=== PATIENT | male | born 1940 | race Caucasian/White ===

== ENCOUNTER 2018-04-09 18:34 | Inpatient (IN) ==
[2018-04-09] MEDS ORDERED: 0.9 % SODIUM CHLORIDE 1,000 ML IV ONE ×2 (18:47→20:53)
--- NOTE | 2018-04-09 18:52 | Emergency Department Note ---
GI Bleed HPI - General Chief complaint: Rectal Bleed Stated complaint: Rectal bleed Time Seen by Provider: 04/09/18 18:45 Source: EMS Mode of arrival: EMS Limitations: no limitations - History of Present Illness HPI Narrative: This patient had colonoscopy with Dr. Martinez this morning at 9 and a apparently took out a very large polyp. He has had discomfort since the procedure and started having some rectal bleeding this evening. He thought he had quite a bit in the toilet bowl but not finding much on rectal exam at this time. - Related Data Allergies Allergy/AdvReac Type Severity Reaction Status Date / Time oxycodone Allergy Mild Itching Verified 04/09/18 18:35 Review of Systems All systems ED: reviewed and negative except as stated. Past Medical History - Past Medical History Medical history: Reports: atrial fibrillation, COPD, coronary artery disease Surgical history ED: Reports: coronary bypass (CABG), pacemaker/AICD - Social History smoking status: Never smoker Physical Exam Limitations: no limitations General appearance: alert Head: atraumatic Eye: Present: normal appearance ENT: normal exam Neck: Present: normal inspection Chest: Present: normal inspection Respiratory: Present: normal lung sounds bilaterally Cardiovascular: Present: regular rate, normal rhythm, normal heart sounds Abdominal: Present: soft, tenderness. Absent: distention, guarding, rebound Abdominal tenderness: Present: porter umbilical, moderate Rectal: Present: heme (+) stool Neurological: Present: alert Psychiatric: Present: normal affect Skin: Present: warm, dry, intact Course Vital Signs Temperature 98.2 F 04/09/18 18:36 Pulse Rate 150 H 04/09/18 18:36 Respiratory Rate 20 04/09/18 18:36 Blood Pressure 149/84 04/09/18 18:36 Pulse Oximetry (%) 96 04/09/18 18:36 Temperature 98.2 F 04/09/18 18:36 Pulse Rate 50 L 04/09/18 19:21 Respiratory Rate 26 H 04/09/18 19:21 Blood Pressure 110/64 04/09/18 19:18 Pulse Oximetry (%) 94 04/09/18 19:21 GI Bleed - MDM Narrative Medical decision making narrative: Plain film did not show any free air in his will. I talked with Dr. Martinez who did the colonoscopy and said there was quite a bit of work done in the transverse colon with a large polyp and lower cautery. He recommends a CT scan. I spoke with surgeon Dr. Vuong who will admit him to his service. We will treat him with antibiotics. - Lab Data Lab results reviewed: Yes I reviewed the patient's lab results. Result diagrams: 04/09/18 18:52 04/09/18 18:52 Lab Results 04/09/18 04/09/18 04/09/18 Range/Units 18:52 18:52 18:52 WBC 8.9 (4.5-11.0) K/mcL RBC 4.47 L (4.50-5.90) M/mcL Hgb 13.4 L (13.5-16.5) g/dL Hct 40.4 L (41.0-55.0) % POC Hct 41.0 (41.0-55.0) % MCV 90.3 (80.0-100.0) fL MCH 30.0 (26.0-34.0) pg MCHC 33.2 (31.0-36.0) g/dL RDW 14.4 (11.5-14.5) % Plt Count 149 (140-440) K/mcL MPV 9.1 (7.4-10.4) fL Gran % 81.7 H (38.0-78.0) % Lymph % (Auto) 9.9 L (15.5-49.0) % Sullivan % (Auto) 7.7 (1.0-12.0) % Eos % (Auto) 0.6 (0.0-7.0) % Baso % (Auto) 0.1 (0.0-2.0) % Gran # 7.3 (1.8-8.0) K/mcL Lymph # (Auto) 0.9 L (1.5-4.8) K/mcL Sullivan # (Auto) 0.7 (0.1-0.9) K/mcL Eos # (Auto) 0.1 (0.0-0.7) K/mcL Baso # (Auto) 0 (0.0-0.3) K/mcL PT 17.5 H (11.9-14.5) sec INR 1.4 H (0.9-1.1) POC Sodium 141 (133-145) mmol/L Sodium 138 (133-145) mmol/L POC Potassium 3.3 (3.3-5.1) mmol/L Potassium 3.4 (3.3-5.1) mmol/L POC Chloride 101 (96-108) mmol/L Chloride 100 (96-108) mmol/L Carbon Dioxide 26 (22-30) mmol/L POC Total CO2 26 (22-30) mmol/L Anion Gap 12.0 (8-16) POC BUN 10 (8-23) mg/dl BUN 10 (8-23) mg/dl Creatinine 0.9 (0.7-1.2) mg/dl POC Creatinine 0.8 (0.7-1.2) mg/dl GFR Calculation 80 Glucose 142 H (70-105) mg/dL POC Glucose 144 H (70-105) mg/dL Calcium 9.2 (8.6-10.4) mg/dl POC WB Ioniz Calcium 1.19 (1.16-1.32) mmol/L Total Bilirubin 1.7 H (0.0-1.0) mg/dL AST 19 (0-37) U/l ALT 16 (0-40) U/l Alkaline Phosphatase 70 (39-117) U/L Total Protein 6.9 (5.9-8.4) gm/dL Albumin 4.4 (3.2-5.2) gm/dL Globulin 2.5 (2.2-3.7) gm/dL Albumin/Globulin Ratio 1.8 (1.0-2.3) - Radiology Data Radiology results reviewed: Yes I reviewed the patient's radiology results. Disposition Pt seen by OFFENDER EMPLOYMENT SPECIALIST/PA only: No Clinical Impression: Colonoscopy causing post-procedural bleeding Disposition: Xfer As Outpt/Obs ([facility]) Condition: Good Referrals: Bernardo Bloom MD [Primary Care Provider] - Time of Disposition: 20:11
[2018-04-09 19:29] LABS: Basophils # (Auto) 0 K/mcL (0.0-0.3); Basophils % (Auto) 0.1 % (0.0-2.0); Eosinophils # (Auto) 0.1 K/mcL (0.0-0.7); Eosinophils % (Auto) 0.6 % (0.0-7.0); Granulocytes % (Auto) 81.7 % (38.0-78.0); Lymphocytes # (Auto) 0.9 K/mcL (1.5-4.8); Lymphocytes % (Auto) 9.9 % (15.5-49.0); Mean Cell Volume 90.3 fL (80.0-100.0); Mean Corpuscular HGB Conc 33.2 g/dL (31.0-36.0); Monocytes # (Auto) 0.7 K/mcL (0.1-0.9); Monocytes % (Auto) 7.7 % (1.0-12.0); Platelet Count 149 K/mcL (140-440); RBC 4.47 M/mcL (4.50-5.90); Red Cell Distribution Width 14.4 % (11.5-14.5)
[2018-04-09 19:48] LABS: ALT/SGPT 16 U/l (0-40); Albumin 4.4 gm/dL (3.2-5.2); Albumin/Globulin Ratio 1.8 (1.0-2.3); Alkaline Phosphatase 70 U/L (39-117); Blood Urea Nitrogen 10 mg/dl (8-23)
[2018-04-09] MEDS ORDERED: LEVOFLOXACIN 750 MG/150 ML BAG IV ONE (20:10)
[2018-04-09] MEDS ORDERED: metroNIDAZOLE 500 MG/100 ML BAG IV ONE (20:10)
[2018-04-09] MEDS ORDERED: ONDANSETRON 4 MG/2 ML VIAL IV PRN (20:12)
[2018-04-09] MEDS ORDERED: diphenhydrAMINE 50 MG/ML VIAL IV ONE (20:46)
--- NOTE | 2018-04-10 04:25 | XRay Report ---
CLINICAL INFORMATION: Shortness of breath COMPARISON: 10/13/2015 FINDINGS: Heart is at upper limits normal in size. Sternotomy changes noted. Pacemaker and leads in stable satisfactory position without complication. Mediastinum and pulmonary vessels are normal. Minor left basilar airspace disease likely atelectasis. No effusions IMPRESSION: Mild left basilar airspace disease - more likely atelectasis than developing infiltrate Interpreted and Authenticated by: Keon Mustafa 04/10/18
--- NOTE | 2018-04-10 05:28 | Cat Scan Report ---
CLINICAL INFORMATION: Abdominal pain. Post colonoscopy with rectal bleeding. COMPARISON: None. TECHNIQUE: Enteric contrast was utilized. 60.625 mm helical slices were obtained from the mid heart through the subtrochanteric regions. Following reconstruction, 2.5 mm sagittal, coronal and axial reformatted images were processed and reviewed at bone and soft tissue windows.The exam was performed using radiation dose optimization techniques including, but not limited to, automated exposure control, adjustment of the mA and/or kV according to patient size and use of iterative reconstruction technique. FINDINGS: Lung bases show no nodules or other abnormality. No effusion. The visualized heart is normal in size and configuration. Pacemaker leads in satisfactory position. Images through the abdomen show partial resection of the right hepatic lobe. Gallbladder is surgically absent. Common bile duct is mildly dilated, 9 mm, due to postcholecystectomy state The noncontrasted liver, both kidneys, adrenal glands, spleen, pancreas and aorta are normal in size, configuration and attenuation without focal lesion. Images through the pelvis show prostate and seminal vesicles are grossly normal. There is no free air or free fluid to suggest bowel rupture. No adenopathy. A 4 cm segment of the proximal transverse colon demonstrates moderate concentric wall thickening - up to 1 cm. While this may merely represent artifact from colonic underdistention, the possibility of annular adenocarcinoma should be entertained. The remainder of the colon, small bowel and stomach are normal. The appendix is surgically absent. Moderate atrophy of the right rectus abdominis appreciated. A 21 mm anterior abdominal wall hernia, in the supra umbilical region, consistent only of mesenteric fat Bone windows show no evidence of metastatic disease. Severe degenerative change noted in the lower lumbar spine with severe L3-4 and moderate L4-5 central canal, lateral recess and IV foraminal stenosis. IMPRESSION: 1. No evidence of bowel perforation following colonoscopy 2. 4 cm segment of concentric colonic wall thickening in the proximal transverse colon. It is unknown whether colonoscopy was completed in this particular patient. The possibility of annular adenocarcinoma this region should be entertained. Consider: Repeat colonoscopy or, less preferably, CT colonoscopy. 3. History of prior colon carcinoma acknowledged. No evidence of metastatic disease. 4. Partial hepatectomy 5. 2 cm supraumbilical hernia consisting only of mesenteric fat. Moderate atrophy of the right rectus abdominis muscle Interpreted and Authenticated by: Keon Mustafa 04/10/18
--- NOTE | 2018-04-10 05:29 | XRay Report ---
CLINICAL INFORMATION: abd abdominal pain following colonoscopy COMPARISON: None. FINDINGS: Multiple right upper quadrant surgical clips from prior partial hepatectomy noted. The stool gas pattern is unremarkable. There is no free air, soft tissue mass, organomegaly or pathologic calcification. IMPRESSION: Normal abdomen Interpreted and Authenticated by: Keon Mustafa 04/10/18
[2018-04-10] MEDS ORDERED: 0.9 % SODIUM CHLORIDE 1,000 ML IV SCH (07:45)
[2018-04-10 08:55] LABS: Basophils # (Auto) 0 K/mcL (0.0-0.3); Basophils % (Auto) 0.3 % (0.0-2.0); Eosinophils # (Auto) 0.1 K/mcL (0.0-0.7); Eosinophils % (Auto) 1.4 % (0.0-7.0); Granulocytes % (Auto) 68.5 % (38.0-78.0); Mean Corpuscular HGB Conc 33.2 g/dL (31.0-36.0); Monocytes # (Auto) 0.7 K/mcL (0.1-0.9); Monocytes % (Auto) 12.8 % (1.0-12.0); Platelet Count 119 K/mcL (140-440); RBC 3.66 M/mcL (4.50-5.90); Red Cell Distribution Width 14.6 % (11.5-14.5)
[2018-04-10] MEDS: metroNIDAZOLE 500 MG/100 ML BAG IV SCH ×3 (09:02→17:52)
[2018-04-10 09:09] LABS: ALT/SGPT 11 U/l (0-40); Albumin 3.5 gm/dL (3.2-5.2); Albumin/Globulin Ratio 1.6 (1.0-2.3); Alkaline Phosphatase 49 U/L (39-117); Bilirubin,Direct 0.2 mg/dL (0.0-0.3); Blood Urea Nitrogen 8 mg/dl (8-23); Gamma Glutamyl Transpeptidase 11 U/L (8-61); Uric Acid 6.1 mg/dL (2.5-8.0)
[2018-04-10 10:44] LABS: Erythrocyte Sedimentation Rate 13 mm/hr (0-15)
[2018-04-10] MEDS ORDERED: PHYTONADIONE 10 MG/ML AMPUL SQ SCH (11:03)
[2018-04-10] MEDS: PIPERACILLIN SODIUM/TAZOBACTAM 3.375 GM in DEXTROSE 5% IN WATER 50 ML IV SCH ×2 (11:09→17:13)
--- NOTE | 2018-04-10 11:26 | General Surg History&Physical ---
History of Present Illness Patient information: Note initiated : 04/10/18 at 11:17 am Service Date, if different from initiated Date: [04/09/2018] Patient: Dakota Mejia 78 y/o M admitted on 04/09/18 for Rectal bleed. Chief Complaint: [78-year-old male admitted late last evening after undergoing colonoscopy with removal of a large polyp.. He developed a pulse procedure abdominal pain and had multiple bloody bowel movements. Pain was across is upper abdomen. He was admitted and started on IV antibiotics and monitored. The patient has a history of colon cancer in the 70s. He later developed metastatic cancer of the right lobe of the liver and underwent partial hepatectomy in 1995. He has been stable since that time has been having colonoscopies every 2-3 years since. His colonoscopy done 3 years ago was said to be normal. He states that he has had intermittent rectal bleeding over the past 2 years and he noted that his stools were flat. In In discussing the procedure with the kick boxer he states that the patient had a large polyp that was raised with saline submucosal injection and cautery polypectomy. He states that there was no circumferential lesions noted and that he was able to get the scope down to the terminal ileum. His last bowel movement which was about 4 hours ago she active bleeding. He has been on Coumadin and his INR is 1.4. He states that his pain has improved but he still has upper abdominal soreness.] HPI: Mr. Mejia is a 78 year old M Review of Systems - Constitutional fatigue, no malaise, no night sweats, no weakness, no weight gain, no weight loss - EENT Nose, mouth and throat: abnormal hearing (patient has bilateral hearing loss), no dizziness, no hoarseness, no neck pain - Cardiovascular chest pain with activity, dyspnea on exertion, palpatations, rapid heart rate - Respiratory no cough, no hemoptysis, no wheezing, no chest congestion, no pain with cough - Gastrointestinal abdominal pain, bloating, change in bowel habits, change in stool character, constipation, hematochezia, nausea - Genitourinary change in urinary stream, urinary frequency, urinary hesitancy, urinary incontinence, no dysuria - Musculoskeletal abnormal gait, arthralgias, myalgias, stiffness - Integumentary no bleeding lesions, no non-healing lesions, no pruritus, no rash - Neurological abnormal hearing, no convulsions, no dizziness, no numbness, no syncope, no vertigo - Psychiatric no anxiety, no depression, no paranoia - Endocrine palpitations - Hematologic/Lymphatic other (chronic Coumadin therapy), no easy bleeding, no easy bruising, no lymphadenopathy - Allergic/Immunologic no tongue swelling, no throat swelling, no uticaria, no wheezing, no lip swelling Past History Past medical history: Coronary artery disease Chronic atrial fibrillation Chronic low back pain History of primary colon cancer History of partial hepatectomy for metastatic colon cancer 1995 Hypertension Coronary artery disease Chronic obstructive lung disease Chronic anticoagulant therapy Past surgical history: Lower lumbar back surgery 2 Coronary artery bypass graft 5 Pacemaker insertion 2000 Partial hepatectomy Past family history: Mother due to coronary artery disease Father due to prostate cancer Past social history: History of smoking cigarettes 30 years History of alcohol use but none in 2 years No drug use Medications and Allergies Allergies Allergy/AdvReac Type Severity Reaction Status Date / Time levofloxacin [From Levaquin] Allergy Severe Itching Verified 04/09/18 20:52 oxycodone Allergy Mild Itching Verified 04/09/18 18:35 Exam Temp Pulse Resp BP Pulse Ox 98.5 F 92 H 16 100/65 90 04/10/18 06:48 04/10/18 03:32 04/10/18 06:48 04/10/18 06:48 04/10/18 06:48 - General physical appearance well developed, well nourished, no distress, moderate pain - Eyes PERRL, normal ocular movement - ENT normal pinna, normal nares, normal mucosa, no congestion, decreased hearing. negative: no hearing loss - Head Head exam IM: Present: atraumatic, normal inspection, normocephalic - Neck no masses, no bruits, trachea midline, no lymphadenopathy, no venous distension - Cardiovascular Cardiovascular exam IM: Present: normal rate and rhythm. Absent: JVD, systolic murmur, tachycardia - Respiratory normal expansion, normal respiratory effort, clear to auscultation - Abdomen Abdomen: Present: soft, tender (tender epigastric and right subcostal tenderness without mass and without guarding; multiple healed surgical scars), bowel sounds Hernia: Present: none - Genitourinary Present: normal penis with no external lesions - Integumentary Present: no rash, no growths, no abnormal pigmentation - Neurologic Present: normal coordination, normal sensation - Musculoskeletal Present: normal gait, normal posture - Psychiatric Present: oriented to time, oriented to person, oriented to place, speech is normal, memory intact Assessment and Plan (1) History of colon cancer results of the biopsy from colon lesion to be followed up Status: Acute (2) History of malignant neoplasm metastatic to liver Status: Acute (3) Colonoscopy causing post-procedural bleeding Correct INR with IV vitamin K Repeat hemoglobin later today and in a.m. Status: Acute (4) Coronary artery disease Status: Acute (5) Hypertension Status: Acute (6) Chronic atrial fibrillation Status: Acute (7) Chronic obstructive lung disease Status: Acute
[2018-04-10] MEDS: PHYTONADIONE 10 MG in 0.9 % SODIUM CHLORIDE 50 ML IV SCH (12:34)
[2018-04-10] MEDS: HYDROmorphone 2 MG/ML VIAL IV PRN ×2 (12:48→21:00)
[2018-04-10] MEDS: PANTOPRAZOLE 40 MG VIAL IV SCH (17:13)
[2018-04-10] MEDS ORDERED: BUTALB/ACETAMINOPHEN/CAFFEINE 1 TABLET PO PRN (18:32)
[2018-04-10] MEDS ORDERED: FUROSEMIDE 20 MG TABLET PO PRN (18:38)
[2018-04-10] MEDS: MONTELUKAST 10 MG TABLET PO SCH (21:00)
[2018-04-11] MEDS: PIPERACILLIN SODIUM/TAZOBACTAM 3.375 GM in DEXTROSE 5% IN WATER 50 ML IV SCH ×5 (00:07→23:26)
[2018-04-11] MEDS: metroNIDAZOLE 500 MG/100 ML BAG IV SCH (00:08)
[2018-04-11] MEDS: PHYTONADIONE 10 MG in 0.9 % SODIUM CHLORIDE 50 ML IV SCH ×2 (00:08→15:06)
[2018-04-11] MEDS: LORazepam 2 MG/ML ORAL.SOL PO PRN ×2 (00:26→20:53)
[2018-04-11] MEDS: HYDROmorphone 2 MG/ML VIAL IV PRN ×3 (05:03→23:40)
[2018-04-11 05:33] LABS: Basophils # (Auto) 0 K/mcL (0.0-0.3); Basophils % (Auto) 0.5 % (0.0-2.0); Eosinophils # (Auto) 0.1 K/mcL (0.0-0.7); Eosinophils % (Auto) 3.7 % (0.0-7.0); Lymphocytes # (Auto) 1.2 K/mcL (1.5-4.8); Lymphocytes % (Auto) 34.3 % (15.5-49.0); Mean Cell Volume 91.1 fL (80.0-100.0); Monocytes # (Auto) 0.5 K/mcL (0.1-0.9); Monocytes % (Auto) 13.5 % (1.0-12.0); Platelet Count 116 K/mcL (140-440); RBC 3.53 M/mcL (4.50-5.90); Red Cell Distribution Width 14.6 % (11.5-14.5)
[2018-04-11 06:10] LABS: ALT/SGPT 10 U/l (0-40); Albumin 3.5 gm/dL (3.2-5.2); Albumin/Globulin Ratio 1.8 (1.0-2.3); Alkaline Phosphatase 46 U/L (39-117); Bilirubin,Direct 0.3 mg/dL (0.0-0.3); Blood Urea Nitrogen 6 mg/dl (8-23); Gamma Glutamyl Transpeptidase 10 U/L (8-61); Uric Acid 5.3 mg/dL (2.5-8.0)
[2018-04-11] MEDS: PANTOPRAZOLE 40 MG VIAL IV SCH ×2 (06:39→16:38)
[2018-04-11] MEDS ORDERED: 0.9 % SODIUM CHLORIDE 250 ML IV SCH (14:15)
--- NOTE | 2018-04-11 14:15 | General Surgery Progress Note ---
Subjective Patient reports: feels better, still having pain, pain is less, tolerating liquids well, flatus, blood in stool, afebrile Narrative: Note initiated : 04/11/18 at 2:14 pm Service Date, if different from initiated Date: [] Patient: Dakota Mejia 78 y/o M admitted on 04/09/18 for Rectal bleed. Chief Complaint: [Patient continues to have upper abdominal pain. He is afebrile and has normal white blood count. His hemoglobin has decreased from 13-10.6. His pro time is still 17.8 with INR 1.5 in spite of 2 doses of vitamin K. Discussed with him the need to correct his pro time prior to discharge since he is still bleeding. We'll give 2 units of fresh frozen plasma and 2 more doses of vitamin K IV.] Objective Temp Pulse Resp BP Pulse Ox 98.1 F 100 H 18 105/60 92 04/11/18 11:11 04/11/18 06:40 04/11/18 11:11 04/11/18 11:11 04/11/18 11:11 - Additional Data Intake & Output - Last 24 hours: Intake & Output 04/09/18 04/10/18 04/11/18 04/12/18 05:59 05:59 05:59 05:59 Intake Total 2064 2841 770 Output Total 1900 1300 Balance 2064 941 -530 Weight 202 lb 8 oz 200 lb 12.8 oz - General physical appearance well developed, well nourished, no distress - Eyes PERRL, normal ocular movement - ENT normal pinna, normal nares, normal mucosa, no hearing loss, no congestion - Neck no masses, no bruits, trachea midline, no lymphadenopathy, no venous distension - Respiratory normal expansion, normal respiratory effort, clear to auscultation - Cardiovascular Cardiovascular exam: Present: normal rate and rhythm, irregular rhythm, +S1, +S2. Absent: JVD - Abdomen tender (mild epigastric and right upper quadrant tenderness persists; no guarding or rebound) - Integumentary no rash, no growths, no abnormal pigmentation - Neurologic normal coordination, normal sensation - Musculoskeletal normal gait, normal posture - Psychiatric oriented to time, oriented to person, oriented to place, speech is normal, memory intact - Labs 04/11/18 04:44 04/11/18 04:44 Diabetes panel 04/11/18 Range/Units 04:44 Sodium 141 (133-145) mmol/L Potassium 3.3 (3.3-5.1) mmol/L Chloride 105 (96-108) mmol/L Carbon Dioxide 25 (22-30) mmol/L BUN 6 L (8-23) mg/dl Creatinine 0.9 (0.7-1.2) mg/dl Glucose 87 (70-105) mg/dL Calcium 8.3 L (8.6-10.4) mg/dl AST 13 (0-37) U/l ALT 10 (0-40) U/l Alkaline Phosphatase 46 (39-117) U/L Total Protein 5.5 L (5.9-8.4) gm/dL Albumin 3.5 (3.2-5.2) gm/dL Triglycerides 75 (<150) mg/dl Calcium panel 04/11/18 Range/Units 04:44 Calcium 8.3 L (8.6-10.4) mg/dl Phosphorus 2.8 (2.7-4.5) mg/dL Albumin 3.5 (3.2-5.2) gm/dL Pituitary panel 04/11/18 Range/Units 04:44 Sodium 141 (133-145) mmol/L Potassium 3.3 (3.3-5.1) mmol/L Chloride 105 (96-108) mmol/L Carbon Dioxide 25 (22-30) mmol/L BUN 6 L (8-23) mg/dl Creatinine 0.9 (0.7-1.2) mg/dl Glucose 87 (70-105) mg/dL Calcium 8.3 L (8.6-10.4) mg/dl Adrenal panel 04/11/18 Range/Units 04:44 Sodium 141 (133-145) mmol/L Potassium 3.3 (3.3-5.1) mmol/L Chloride 105 (96-108) mmol/L Carbon Dioxide 25 (22-30) mmol/L BUN 6 L (8-23) mg/dl Creatinine 0.9 (0.7-1.2) mg/dl Glucose 87 (70-105) mg/dL Calcium 8.3 L (8.6-10.4) mg/dl Total Bilirubin 1.7 H (0.0-1.0) mg/dL AST 13 (0-37) U/l ALT 10 (0-40) U/l Alkaline Phosphatase 46 (39-117) U/L Total Protein 5.5 L (5.9-8.4) gm/dL Albumin 3.5 (3.2-5.2) gm/dL Assessment and Plan (1) History of colon cancer Status: Acute Current Visit: Yes (2) History of malignant neoplasm metastatic to liver Status: Acute Current Visit: Yes (3) Colonoscopy causing post-procedural bleeding Status: Acute Assessment and plan: Vitamin K 10 mg IV every 12 hours 2 doses First frozen plasma 2 units today Repeat PT INR and CBC in the morning Advance diet as tolerated Current Visit: Yes (4) Coronary artery disease Status: Acute Current Visit: Yes (5) Hypertension Status: Acute Current Visit: Yes (6) Chronic atrial fibrillation Status: Acute Current Visit: Yes (7) Chronic obstructive lung disease Status: Acute Current Visit: Yes - Time Spent With Patient Total time spent is greater than 50% in coordination of care (as documented) at patient's floor/unit and/or counseling patient:
[2018-04-11] MEDS ORDERED: PHYTONADIONE 10 MG/ML AMPUL ONE (14:26)
[2018-04-11] MEDS ORDERED: PHYTONADIONE 10 MG in 0.9 % SODIUM CHLORIDE 50 ML SQ SCH (15:00)
[2018-04-11] MEDS: MONTELUKAST 10 MG TABLET PO SCH (20:31)
[2018-04-11] MEDS ORDERED: PHYTONADIONE 10 MG/ML AMPUL IV SCH (21:00)
[2018-04-12] MEDS: PHYTONADIONE 10 MG in 0.9 % SODIUM CHLORIDE 50 ML IV SCH (03:21)
[2018-04-12] MEDS: PIPERACILLIN SODIUM/TAZOBACTAM 3.375 GM in DEXTROSE 5% IN WATER 50 ML IV SCH ×2 (05:19→12:05)
[2018-04-12 05:30] LABS: Basophils # (Auto) 0 K/mcL (0.0-0.3); Basophils % (Auto) 0.7 % (0.0-2.0); Eosinophils # (Auto) 0.2 K/mcL (0.0-0.7); Eosinophils % (Auto) 4.7 % (0.0-7.0); Granulocytes % (Auto) 42.7 % (38.0-78.0); Lymphocytes # (Auto) 1.2 K/mcL (1.5-4.8); Lymphocytes % (Auto) 37.9 % (15.5-49.0); Mean Cell Volume 91.1 fL (80.0-100.0); Monocytes # (Auto) 0.5 K/mcL (0.1-0.9); Platelet Count 117 K/mcL (140-440); RBC 3.49 M/mcL (4.50-5.90); Red Cell Distribution Width 14.4 % (11.5-14.5)
[2018-04-12 05:52] LABS: ALT/SGPT 10 U/l (0-40); Albumin 3.7 gm/dL (3.2-5.2); Albumin/Globulin Ratio 1.7 (1.0-2.3); Alkaline Phosphatase 49 U/L (39-117); Bilirubin,Direct 0.2 mg/dL (0.0-0.3); Blood Urea Nitrogen 5 mg/dl (8-23); Gamma Glutamyl Transpeptidase 14 U/L (8-61); Uric Acid 4.1 mg/dL (2.5-8.0)
[2018-04-12] MEDS: PANTOPRAZOLE 40 MG VIAL IV SCH (07:38)
[2018-04-12] MEDS: HYDROmorphone 2 MG/ML VIAL IV PRN (07:38)
[2018-04-12] MEDS ORDERED: diphenhydrAMINE 25 MG CAPSULE PO PRN (10:18)
[2018-04-12] MEDS ORDERED: HYDROCODONE/APAP 7.5/325MG TABLET PO PRN (10:18)
--- NOTE | 2018-04-12 13:18 | Discharge Summary ---
Providers - Providers Patient information: Note initiated : 04/12/18 at 1:14 pm Service Date, if different from initiated Date: [] Patient: Daktoa Mejia 78 y/o M admitted on 04/11/18 for Rectal bleed. Chief Complaint: [] Date of admission: 04/09/18 Discharge date: 04/12/18 Attending physician: Flor Vuong Hospitalization Hospital course: 78-year-old male admitted on April 11 after undergoing colonoscopy with removal of a large polyp transverse colon. The patient had increased pain and multiple bloody stools post procedure. He was admitted via the emergency room for observation. On questioning the patient he had been on Coumadin for atrial fibrillation. He did not withhold his Coumadin for any time prior to the colonoscopy. His PT was 17.8 seconds. He was treated with IV antibiotics because of the suspected inflammation due to the burn scar from the polypectomy and potential for perforation. CT did not confirm any free air did show significant changes in the wall of the proximal transverse colon circumferentially. In discussing this with Dr. Little he states that the changes due to saline injection and burn injury from the polypectomy. Pathology is not available. The patient received 4 doses of vitamin K IV and 2 units of fresh frozen plasma. His last 2 bowel movements did not show bleeding in his pain has resolved. Hemoglobin decreased from 13.6-10.3 but has been stable since yesterday. Clinically the patient is doing well and is stable for discharge home. Discharge diagnosis: colonoscopy with postprocedural bleeding Secondary discharge diagnosis: postprocedure pain status post polypectomy transverse colon Chronic anticoagulant therapy Blood loss anemia Chronic atrial fibrillation Reason for admission: abdominal pain and postprocedural bleeding Procedures: None Pertinent studies/significant findings: CT of abdomen and pelvis Complications: None Exam Temp Pulse Resp BP Pulse Ox 98.3 F 93 H 18 120/82 94 04/12/18 11:43 04/12/18 08:03 04/12/18 11:43 04/12/18 11:43 04/12/18 11:43 - General physical appearance well developed, well nourished, no distress - Eyes PERRL, normal ocular movement - ENT normal pinna, normal nares, normal mucosa, no congestion, decreased hearing - Head Head exam IM: Present: atraumatic, normocephalic - Neck no masses, no bruits, trachea midline, no lymphadenopathy, no venous distension - Cardiovascular Cardiovascular exam IM: Present: normal rate and rhythm, irregular rhythm, +S1, +S2. Absent: JVD, tachycardia - Respiratory normal expansion, normal respiratory effort, clear to auscultation - Abdomen Abdomen: Present: soft, tender (minimal tenderness in right upper quadrant in the subcostal region; no palpable masses; no guarding), bowel sounds Hernia: Present: none - Genitourinary Present: normal penis with no external lesions - Rectum Rectum: Present: normal sphincter tone, no hemorrhoids, no tenderness, no masses, no bleeding - Integumentary Present: no rash, no growths, no abnormal pigmentation - Neurologic Present: normal coordination, normal sensation - Musculoskeletal Present: normal gait, normal posture - Psychiatric Present: oriented to time, oriented to person, oriented to place, speech is normal, memory intact Discharge Plan - Patient/Caregiver Discharge Instructions Activity: increase activity as tolerated Diet: Regular Diet Additional Instructions: Hold Coumadin for 4 days then restart at previous maintenance dose Office visit in [address] of abdomen and pelvis with IV contrast 3 days before return to office in 2 weeks - Follow up Plan Follow up with: Bernardo Bloom MD [Primary Care Provider] - Flor Vuong MD [Physician] - (Call Friday to make appointment.) Disposition: Home, Self-Care Prognosis: Good Rehab Potential: Good I certify that the patient requires SNF services.: No Overall status at discharge: patient is progressing back to baseline Pending Studies Resuscitation Status Full Code Diet Regular Diet Start Sat Apr 11 1413 Acetaminophen/Butalbital/Caffeine (Fioricet) 2 tab PO Q4HP PRN PRN Reason: Headache Last Admin: 04/10/18 19:01 Dose: 2 tab Documented by: [email or web address] Hydrocodone Bitart/Acetaminophen (Milton 7.5/325mg) 0 tab PO Q4HP PRN PRN Reason: PAIN LEVEL 3-6 Last Admin: 04/12/18 10:40 Dose: 1 tab Documented by: [email or web address] Diphenhydramine HCl (Benadryl) 50 mg PO Q4HP PRN PRN Reason: Allergic Symptoms Last Admin: 04/12/18 10:36 Dose: 50 mg Documented by: [email or web address] Hydromorphone HCl (Dilaudid) 1 mg IV Q2HP PRN PRN Reason: PAIN LEVEL > 6 Last Admin: 04/12/18 07:38 Dose: 1 mg Documented by: [email or web address] Admin: 04/11/18 23:40 Dose: 1 mg Documented by: Admin: 04/11/18 20:58 Dose: 1 mg Documented by: Admin: 04/11/18 05:03 Dose: 1 mg Documented by: Admin: 04/10/18 21:00 Dose: 1 mg Documented by: Admin: 04/10/18 12:48 Dose: 1 mg Documented by: GAUDENCIO Piperacillin Sod/Tazobactam (Sod 3.375 gm/ Dextrose) 50 mls @ 100 mls/hr IV Q6H LOIDA Last Infusion: 04/12/18 12:35 Dose: 0 mls/hr Documented by: [email or web address] Admin: 04/12/18 12:05 Dose: 100 mls/hr Documented by: [email or web address] Infusion: 04/12/18 06:01 Dose: 0 mls/hr Documented by: Admin: 04/12/18 05:19 Dose: 100 mls/hr Documented by: Infusion: 04/11/18 23:56 Dose: 100 mls/hr Documented by: Admin: 04/11/18 23:26 Dose: 100 mls/hr Documented by: Infusion: 04/11/18 18:31 Dose: 100 mls/hr Documented by: Admin: 04/11/18 18:01 Dose: 100 mls/hr Documented by: [email or web address] Infusion: 04/11/18 13:05 Dose: 0 mls/hr Documented by: [email or web address] Admin: 04/11/18 12:35 Dose: 100 mls/hr Documented by: [email or web address] Infusion: 04/11/18 06:15 Dose: 0 mls/hr Documented by: [email or web address] Admin: 04/11/18 05:43 Dose: 100 mls/hr Documented by: Infusion: 04/11/18 03:23 Dose: 0 mls/hr Documented by: Admin: 04/11/18 00:07 Dose: 100 mls/hr Documented by: Infusion: 04/10/18 17:52 Dose: 0 mls/hr Documented by: [email or web address] Admin: 04/10/18 17:13 Dose: 100 mls/hr Documented by: Infusion: 04/10/18 12:38 Dose: 0 mls/hr Documented by: Admin: 04/10/18 11:09 Dose: 100 mls/hr Documented by: GAUDENCIO Lorazepam (Ativan) 2 mg PO TIDP PRN PRN Reason: ANXIETY/SEDATION Last Admin: 04/11/18 20:53 Dose: 2 mg Documented by: Admin: 04/11/18 00:26 Dose: 2 mg Documented by: WILMER Montelukast Sodium (Singular) 10 mg PO HS [facility] Last Admin: 04/11/18 20:31 Dose: 10 mg Documented by: Admin: 04/10/18 21:00 Dose: 10 mg Documented by: WILMER Ondansetron HCl (Zofran) 4 mg IV Q4HP PRN PRN Reason: Nausea And Vomiting Last Admin: 04/09/18 20:30 Dose: 4 mg Documented by: LOI Pantoprazole Sodium (Protonix) 40 mg IV BIDAC [facility] Last Admin: 04/12/18 07:38 Dose: 40 mg Documented by: [email or web address] Admin: 04/11/18 16:38 Dose: 40 mg Documented by: Admin: 04/11/18 06:39 Dose: 40 mg Documented by: Admin: 04/10/18 17:13 Dose: 40 mg Documented by: GEOVANY Shift Summary 04/12/18 02:38 Shift Summary by Darshana Arroyo AOx4. LA POSTA. Unit #2 FFP transfused without issue. VSS on RA. 2nd dose of Vit K completed. c/o / RLE pain and ABD tenderness. PRN ativan x1 + PRN IV dilaudid x2 with significant relief but reporting itching post administration. Denied need for antihistamine. OOB with FWW SBA. Voiding without issue. BMx1 with no visible sign of blood in stool this shift. SL x2 with intermittent IV zosyn. Initialized on 04/12/18 02:38 - END OF NOTE
== END 2018-04-12 14:20 | disposition home or self-care (01) | DRG 378 ==
LOC: ED 18:34 → MEDSUR 18:34
PROVIDERS: ADMIT Family Medicine Adult Medicine; ATTEND Family Medicine Adult Medicine

== ENCOUNTER 2020-09-29 12:23 | Inpatient (IN) ==
--- NOTE | 2020-09-27 11:41 | EKG ---
[facility] Test Date: 2020-09-27 Pat Name: Dakota Mejia Department: RT Room: Gender: Male [employer] Tender: : 1940 Requested By: Flor Vuong Order Number: [id number] [place] MD: Pato Sutton M.D. Measurements Intervals Wilmer Rate: 104 P: AL: QRS: 85 QRSD: 98 T: 39 QT: 384 QTc: 506 Interpretive Statements ATRIAL FLUTTER, A-RATE 272 BORDERLINE RIGHT AXIS DEVIATION PROLONGED QT INTERVAL Since previous ECG of 08-17-2018, A FIB, NOW A FLUTTER. ABNORMAL ECG Electronically Signed On 09-27-2020 11:41:11 PDT by Pato Sutton M.D. /[facility] [place]//[id number]
[2020-09-27 15:35] LABS: Basophils # (Auto) 0.05 K/mcL (0.00-0.20); Eosinophils # (Auto) 0.15 K/mcL (0.00-0.70); Eosinophils % (Auto) 3.1 % (0.0-7.0); Hematocrit 38.9 % (41.0-55.0); Hemoglobin 12.2 g/dL (13.5-16.5); Lymphocytes # (Auto) 1.69 K/mcL (1.50-4.80); Lymphocytes % (Auto) 34.7 % (15.0-49.0); Mean Cell Volume 89.4 fL (80.0-100.0); Mean Corpuscular HGB Conc 31.4 g/dL (31.0-36.0); Mean Platelet Volume 11.2 fL (7.4-10.4); Monocytes # (Auto) 0.72 K/mcL (0.10-0.90); Monocytes % (Auto) 14.8 % (1.0-12.0); Neutrophils % (Auto) 46.4 % (38.0-78.0); Platelet Count 164 K/mcL (140-440); RBC 4.35 M/mcL (4.50-5.90); Red Cell Distribution Width 14.3 % (11.5-14.5); WBC 4.9 K/mcL (4.5-11.0)
[2020-09-27 19:05] LABS: Partial Thromboplastin Time 39.6 sec (20.0-37.0)
[2020-09-27 19:39] LABS: INR 1.7 (0.9-1.1); Prothrombin Time 20.5 sec (11.9-14.5)
--- NOTE | 2020-09-28 10:58 | XRay Report ---
HISTORY: Preop for colectomy FINDINGS: The lungs are clear and normally expanded. The heart size and pulmonary vasculature are normal. There has had a prior sternotomy with coronary bypass surgery. There is a dual-chamber pacemaker in the right side of the heart. The mediastinum and hilar normal. No pleural effusion is present. There are numerous surgical nidia beneath the right diaphragm. Comparison with the prior exam from 01/08/19 shows no change. IMPRESSION: No acute abnormality Interpreted and Authenticated by: Varghese Rocha 09/28/20
[~2020-09-29 12:23] MED LIST: 0.9 % SODIUM CHLORIDE 250 ML IV SCH; PIPERACILLIN SODIUM/TAZOBACTAM 3.375 GM in DEXTROSE 5% IN WATER 50 ML IV SCH; metroNIDAZOLE 500 MG/100 ML BAG IV SCH
[2020-09-29] MEDS ORDERED: IPRATROPIUM/ALBUTEROL 3 ML AMPUL.NEB NEB PRN ×2 (12:30→15:38)
[2020-09-29] MEDS ORDERED: SCOPOLAMINE 1 PATCH PATCH TOPICAL PRN (12:30)
[2020-09-29] MEDS ORDERED: ALBUMIN HUMAN 25 GM/100 ML BAG IV ONE ×2 (13:25→13:35)
[2020-09-29] MEDS ORDERED: LIDOCAINE HCL/PF 100 MG/5 ML SYRINGE IV ONE (13:35)
[2020-09-29] MEDS ORDERED: ONDANSETRON 4 MG/2 ML VIAL ONE (13:35)
[2020-09-29] MEDS ORDERED: EPINEPHrine 1 MG/ML AMPUL ONE (13:35)
[2020-09-29] MEDS ORDERED: MAGNESIUM SULFATE 2 GM/50 ML BAG IV ONE (13:35)
[2020-09-29] MEDS ORDERED: KETAMINE 50 MG/ML ML ONE (13:35)
[2020-09-29] MEDS ORDERED: methylPREDNISolone SOD SUCC 125 MG/2 ML VIAL ONE (13:35)
[2020-09-29] MEDS ORDERED: ROCURONIUM 10 MG/ML ML IV ONE (13:35)
[2020-09-29] MEDS ORDERED: DEXAMETHASONE 10 MG/ML VIAL ONE (13:35)
[2020-09-29] MEDS ORDERED: fentaNYL 100 MCG/2 ML VIAL IV ONE (13:35)
[2020-09-29] MEDS ORDERED: GLYCOPYRROLATE 0.2 MG/ML VIAL IV ONE (13:35)
[2020-09-29] MEDS ORDERED: PROPOFOL 200 MG/20 ML VIAL IV ONE (13:35)
[2020-09-29] MEDS ORDERED: PHENYLEPHRINE 10 MG/ML VIAL ONE (13:35)
[2020-09-29] MEDS ORDERED: SUCCINYLCHOLINE 20 MG/ML ML IV ONE (13:35)
[2020-09-29 13:44] LABS: POC Pro Time 12.4 sec (11.9-14.5)
[2020-09-29 13:47] LABS: Appearance,Urine CLEAR (Clear); Bilirubin,Urine Negative (Negative); Color,Urine YELLOW; Culture Indicated,Urine No; Glucose,Urine (UA) Negative (Negative); Ketones,Urine Negative (Negative); Leukocyte Esterase,Urine Negative /ug (Negative); Nitrate,Urine Negative (Negative); Protein,Urine Negative (Negative); Urine Blood Negative (Negative); Urobilinogen,Urine Negative
[2020-09-29] MEDS ORDERED: METHOCARBAMOL 1,000 MG/10 ML VIAL IV PRN (15:38)
[2020-09-29] MEDS ORDERED: ACETAMINOPHEN 1,000 MG/100 ML BAG IV ONE (15:38)
[2020-09-29] MEDS ORDERED: NALOXONE HCL 0.4 MG/ML VIAL IV PRN (15:38)
[2020-09-29] MEDS ORDERED: BENZOCAINE/MENTHOL 1 LOZENGE PO PRN (15:38)
[2020-09-29] MEDS ORDERED: ONDANSETRON 4 MG/2 ML VIAL IV PRN (15:38)
[2020-09-29] MEDS ORDERED: LACTATED RINGERS 250 ML IV PRN (15:38)
[2020-09-29] MEDS ORDERED: LACTATED RINGERS 1,000 ML IV SCH (15:45)
--- NOTE | 2020-09-29 16:27 | Brief Operative Note ---
Brief Operative Note Date of procedure: 09/29/20 Pre-op diagnosis: COLON CANCER;MULTIPLE COLON POLYPS ;H/O METASTATIC COLON CAN CER Post-op diagnosis: other (COLON CANCER;MULTIPLE COLON POLYPS;H/O METASTATIC COLON CANCER) Procedure: SUBTOTAL COLECTOMYWITH ILEOSIGMOID ANASTOMOSIS Grafts/Implants: No Anesthesia: GETA Complications: none Surgeon: Flor Vuong Estimated blood loss (cc): 200 Specimens Removed/Pathology: other (RIGHT COLON ;TRANSVERSE COLON;DESCENDING AND PROXIMAL SIGMOID COLON) Condition: stable Disposition: PACU
[2020-09-29] MEDS: fentaNYL 100 MCG/2 ML VIAL IV PRN ×4 (16:35→16:55)
[2020-09-29] MEDS ORDERED: ALBUTEROL SULFATE 200 PUFF INHALER INH PRN (16:45)
[2020-09-29] MEDS ORDERED: CARVEDILOL 6.25 MG TABLET PO SCH (16:45)
[2020-09-29] MEDS: HYDROmorphone 0.5 MG/0.5 ML SYRINGE IV PRN ×4 (17:10→21:42)
[2020-09-29 17:43] LABS: Hematocrit 31.1 % (41.0-55.0); Hemoglobin 10.2 g/dL (13.5-16.5)
[2020-09-29] MEDS: PANTOPRAZOLE 40 MG VIAL IV SCH (19:32)
[2020-09-29] MEDS: METOCLOPRAMIDE 10 MG/2 ML VIAL IV SCH (19:32)
[2020-09-29] MEDS: LACTATED RINGERS 1,000 ML IV SCH (20:00)
[2020-09-29] MEDS: PIPERACILLIN SODIUM/TAZOBACTAM 3.375 GM in DEXTROSE 5% IN WATER 50 ML IV SCH (20:40)
[2020-09-29] MEDS: 0.9 % SODIUM CHLORIDE 10 ML SYRINGE IV SCH (20:40)
[2020-09-29] MEDS: HYDROmorphone 1 MG/ML SYRINGE IV PRN (22:53)
[2020-09-29] MEDS: metroNIDAZOLE 500 MG/100 ML BAG IV SCH (22:54)
[2020-09-29] MEDS ORDERED: metroNIDAZOLE 500 MG/100 ML BAG IV SCH (23:00)
[2020-09-30] MEDS ORDERED: ACETAMINOPHEN 1,000 MG/100 ML BAG IV SCH
[2020-09-30] MEDS: METOCLOPRAMIDE 10 MG/2 ML VIAL IV SCH ×5 (00:23→23:34)
[2020-09-30] MEDS: PIPERACILLIN SODIUM/TAZOBACTAM 3.375 GM in DEXTROSE 5% IN WATER 50 ML IV SCH ×5 (01:27→19:15)
[2020-09-30] MEDS: HYDROmorphone 1 MG/ML SYRINGE IV PRN ×7 (01:27→21:42)
[2020-09-30] MEDS ORDERED: HYDROmorphone 1 MG/ML SYRINGE ONE ×3 (01:27→06:00)
[2020-09-30] MEDS: metroNIDAZOLE 500 MG/100 ML BAG IV SCH ×3 (04:57→17:47)
[2020-09-30] MEDS: LACTATED RINGERS 1,000 ML IV SCH ×3 (06:08→23:21)
[2020-09-30] MEDS: 0.9 % SODIUM CHLORIDE 10 ML SYRINGE IV SCH ×3 (06:09→21:43)
[2020-09-30 06:55] LABS: Basophils # (Auto) 0.01 K/mcL (0.00-0.20); Basophils % (Auto) 0.1 % (0.0-2.0); Eosinophils # (Auto) 0 K/mcL (0.00-0.70); Eosinophils % (Auto) 0 % (0.0-7.0); Hematocrit 30.5 % (41.0-55.0); Lymphocytes # (Auto) 0.46 K/mcL (1.50-4.80); Mean Cell Volume 87.9 fL (80.0-100.0); Mean Corpuscular HGB Conc 32.8 g/dL (31.0-36.0); Mean Platelet Volume 11.3 fL (7.4-10.4); Monocytes % (Auto) 11.4 % (1.0-12.0); Platelet Count 135 K/mcL (140-440); RBC 3.47 M/mcL (4.50-5.90); Red Cell Distribution Width 14.1 % (11.5-14.5); WBC 11.4 K/mcL (4.5-11.0)
[2020-09-30 07:00] LABS: ALT/SGPT 14 U/L (<40); AST/SGOT 24 U/L (<40); Albumin 3.9 gm/dL (3.2-5.2); Albumin/Globulin Ratio 1.8 (1.0-2.3); Alkaline Phosphatase 42 U/L (39-117); Bilirubin,Direct 0.3 mg/dL (<0.3); Bilirubin,Total 1.6 mg/dL (0.1-1.0); Blood Urea Nitrogen 10 mg/dL (8-23); Calcium 8.6 mg/dL (8.6-10.4); Carbon Dioxide 24 mmol/L (22-30); Chloride 103 mmol/L (96-108); Globulin 2.2 gm/dL (2.2-3.7); Glomerular Filtration Rate 79; Glucose 157 mg/dL (70-105); Lactate Dehydrogenase 297 U/L (135-225); Phosphorous 3.7 mg/dL (2.5-4.5); Triglycerides 34 mg/dL (<150); Uric Acid 4.8 mg/dL (2.5-8.0)
[2020-09-30] MEDS: PANTOPRAZOLE 40 MG VIAL IV SCH ×2 (08:09→17:50)
[2020-09-30] MEDS: METOPROLOL SUCCINATE 50 MG TAB.XL.24H PO SCH (08:13)
[2020-09-30 08:38] LABS: Neutrophils % (Auto) 84.5 % (38.0-78.0)
[2020-09-30] MEDS: ACETAMINOPHEN 1,000 MG/100 ML BAG IV SCH ×3 (12:31→23:34)
--- NOTE | 2020-09-30 13:36 | General Surgery Progress Note ---
SUBJECTIVE Subjective Patient information: Note initiated : 09/30/20 at 1:31 pm Service Date, if different from initiated Date: [] Patient: Dakota Mejia 80 y/o M admitted on 09/29/20 for Subtotal Colectomy with Ileosigmoid Anastomosis. Chief Complaint: [] Interval history: Patient is doing well status post subtotal colectomy. He has moderate abdominal incisional pain. He actually has had some flatus and small bowel movement. He is afebrile. Constitutional Vitals: Vital Signs Temp Pulse Resp BP Pulse Ox 98.8 F 86 18 126/59 94 09/30/20 11:26 09/30/20 11:26 09/30/20 11:26 09/30/20 11:26 09/30/20 11:26 Period Temp Pulse Resp BP Sys/Yo Pulse Ox Last 24 Hr 97.9 F-98.9 F 80-105 16-22 112-177/53-91 91-100 Intake and Output 09/29/20 09/30/20 09/30/20 21:59 05:59 13:59 Intake Total 2750 250 1350 Output Total 800 750 Balance 1950 -500 1350 Weight 204 lb 14.4 oz 204 lb 14.4 oz Patient Weight 10/01/20 05:59 Weight 204 lb 14.4 oz Intake & Output: Intake & Output 09/29/20 09/30/20 09/30/20 21:59 05:59 13:59 Intake Total 2750 250 1350 Output Total 800 750 Balance 1950 -500 1350 Weight 204 lb 14.4 oz 204 lb 14.4 oz Intake: IV 230 476 0090 Lactated Ringers 1,000 ml @ 100 1000 mls/hr IV .Q10H LO[facility] Rx#: [id number] Zosyn 3.375 gm In Dextrose 5% 100 50 50 in Water 50 ml @ 100 mls/hr IV Q6H LO[facility] Rx#:[id number] Tube Feeding 0 IV - Manual Only 2550 Output: Gastric Drainage 0 100 Left Nare 0 100 Urine Catheter Amount 200 600 Stool 50 Estimated Blood Loss 600 Other: Urine Appearance Clear Clear Uretheral (Elias) Clear Clear Urine Color Bright Yellow Dark Yellow Uretheral (Elias) Bright Yellow Dark Yellow Urine Odor Normal Normal Stool Size Smear Stool Color Brown Dark Red Blood Stool Consistency Liquid Watery Loose # Bowel Movements 1 Neck Neck exam: Present full ROM; Absent tenderness Respiratory Respiratory exam: Present normal respiratory exam and CTAB; Absent rales, rhonchi and wheezes Cardiovascular Cardiovascular exam: Present normal rate and rhythm, RRR, +S1 and +S2; Absent JVD GI/Abdominal GI/Abdominal exam: Present distended (Mild distention), hypoactive bowel sounds and tenderness (Moderate incisional tenderness) Extremities Exam Extremities exam: Present normal capillary refill and normal inspection; Absent tenderness Neurological Exam Neurological exam: Present CN II-XII intact and oriented X3; Absent motor sensory deficit Psychiatric Psychiatric exam: Present normal mood A/P Assessment and plan (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
[2020-09-30] MEDS: CARVEDILOL 6.25 MG TABLET PO SCH (17:52)
[2020-10-01] MEDS: PIPERACILLIN SODIUM/TAZOBACTAM 3.375 GM in DEXTROSE 5% IN WATER 50 ML IV SCH ×4 (00:45→18:22)
[2020-10-01] MEDS: LACTATED RINGERS 1,000 ML IV SCH ×3 (01:35→17:07)
[2020-10-01] MEDS: HYDROmorphone 1 MG/ML SYRINGE IV PRN ×3 (01:38→10:25)
[2020-10-01] MEDS: 0.9 % SODIUM CHLORIDE 10 ML SYRINGE IV SCH ×3 (04:40→21:58)
[2020-10-01] MEDS: ACETAMINOPHEN 1,000 MG/100 ML BAG IV SCH ×4 (06:08→23:55)
[2020-10-01] MEDS: METOCLOPRAMIDE 10 MG/2 ML VIAL IV SCH ×4 (06:08→23:55)
[2020-10-01] MEDS: CARVEDILOL 12.5 MG TABLET PO SCH ×2 (07:30→07:46)
[2020-10-01] MEDS: METOPROLOL SUCCINATE 50 MG TAB.XL.24H PO SCH (07:30)
[2020-10-01 07:34] LABS: Basophils # (Auto) 0.01 K/mcL (0.00-0.20); Basophils % (Auto) 0.1 % (0.0-2.0); Eosinophils # (Auto) 0 K/mcL (0.00-0.70); Eosinophils % (Auto) 0 % (0.0-7.0); Hematocrit 29.5 % (41.0-55.0); Hemoglobin 9.4 g/dL (13.5-16.5); Lymphocytes # (Auto) 1.03 K/mcL (1.50-4.80); Lymphocytes % (Auto) 10.4 % (15.0-49.0); Mean Cell Volume 89.4 fL (80.0-100.0); Mean Corpuscular HGB Conc 31.9 g/dL (31.0-36.0); Mean Platelet Volume 11.8 fL (7.4-10.4); Monocytes % (Auto) 10.1 % (1.0-12.0); Neutrophils % (Auto) 79.4 % (38.0-78.0); Platelet Count 127 K/mcL (140-440); Red Cell Distribution Width 14.7 % (11.5-14.5); WBC 9.9 K/mcL (4.5-11.0)
[2020-10-01] MEDS: PANTOPRAZOLE 40 MG VIAL IV SCH ×2 (07:47→17:08)
[2020-10-01 07:48] LABS: ALT/SGPT 18 U/L (<40); AST/SGOT 37 U/L (<40); Albumin 3.8 gm/dL (3.2-5.2); Albumin/Globulin Ratio 1.8 (1.0-2.3); Alkaline Phosphatase 44 U/L (39-117); Bilirubin,Direct 0.4 mg/dL (<0.3); Bilirubin,Total 1.4 mg/dL (0.1-1.0); Blood Urea Nitrogen 10 mg/dL (8-23); Calcium 8.4 mg/dL (8.6-10.4); Carbon Dioxide 27 mmol/L (22-30); Chloride 102 mmol/L (96-108); Globulin 2.1 gm/dL (2.2-3.7); Glomerular Filtration Rate 88; Glucose 89 mg/dL (70-105); Lactate Dehydrogenase 388 U/L (135-225); Phosphorous 2.1 mg/dL (2.5-4.5); Triglycerides 56 mg/dL (<150); Uric Acid 2.8 mg/dL (2.5-8.0)
--- NOTE | 2020-10-01 13:53 | General Surgery Progress Note ---
SUBJECTIVE Subjective Patient information: Note initiated : 10/01/20 at 1:44 pm Service Date, if different from initiated Date: [] Patient: Dakota Mejia 80 y/o M admitted on 09/29/20 for Subtotal Colectomy with Ileosigmoid Anastomosis. Chief Complaint: [] Principal diagnosis: Subtotal colectomy Interval history: Patient is doing well. He had a small bowel movement and has had a small amount of flatus. He does have some crampy abdominal pain. He had nausea last evening but that has resolved. He is afebrile. Phosphorus 2.1, potassium 3.6, white blood count 9.9, hemoglobin 9.4, hematocrit 29.5 Constitutional Vitals: Vital Signs Temp Pulse Resp BP Pulse Ox 98.8 F 96 H 16 139/72 94 10/01/20 11:24 10/01/20 11:24 10/01/20 11:24 10/01/20 11:24 10/01/20 11:24 Period Temp Pulse Resp BP Sys/Yo Pulse Ox Last 24 Hr 98.2 F-98.9 F 70-100 16-20 116-141/61-80 90-97 Intake and Output 09/30/20 10/01/20 10/01/20 21:59 05:59 13:59 Intake Total 434 557 9233 Output Total 600 625 Balance -270 -375 1250 Weight 210 lb 11.2 oz Intake & Output: Intake & Output 09/30/20 10/01/20 10/01/20 21:59 05:59 13:59 Intake Total 241 631 3775 Output Total 600 625 Balance -270 -375 1250 Weight 210 lb 11.2 oz Intake: IV 913 117 9481 Lactated Ringers 1,000 ml @ 100 1000 mls/hr IV .Q10H [facility] Rx#: [id number] Zosyn 3.375 gm In Dextrose 5% 50 50 50 in Water 50 ml @ 100 mls/hr IV Q6H [facility] Rx#:[id number] Oral 180 Output: Urine Catheter Amount 600 Uretheral (Elias) 600 Void Amount 625 Other: Meal Dinner Percent of Meal Consumed 25% Feeding Ability Independent Urine Appearance Sediment Urine Color Light Tata Urine Odor Normal ENT ENT exam: Present mucous membranes moist, normal exam and normal oropharynx Neck Neck exam: Present full ROM; Absent tenderness Respiratory Respiratory exam: Present normal respiratory exam and CTAB; Absent rales, rhonchi and wheezes Cardiovascular Cardiovascular exam: Present normal rate and rhythm, RRR, +S1 and +S2; Absent JVD GI/Abdominal GI/Abdominal exam: Present distended (Mild distention), hypoactive bowel sounds and tenderness (Moderate incisional tenderness) Extremities Exam Extremities exam: Present normal capillary refill and normal inspection; Absent tenderness Neurological Exam Neurological exam: Present CN II-XII intact and oriented X3; Absent motor sensory deficit Psychiatric Psychiatric exam: Present normal mood A/P Assessment and plan (1) Adenocarcinoma of descending colon: 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
[2020-10-01] MEDS: POTASSIUM PHOSPHATE 40 MEQ in DEXTROSE 5% IN WATER 500 ML IV SCH ×2 (14:31→19:37)
[2020-10-01] MEDS: CARVEDILOL 6.25 MG TABLET PO SCH ×2 (17:09→17:12)
[2020-10-02] MEDS: LORazepam 2 MG/ML VIAL IV PRN (00:18)
[2020-10-02] MEDS: PIPERACILLIN SODIUM/TAZOBACTAM 3.375 GM in DEXTROSE 5% IN WATER 50 ML IV SCH ×4 (00:38→17:25)
[2020-10-02] MEDS: ACETAMINOPHEN 1,000 MG/100 ML BAG IV SCH ×4 (05:29→23:42)
[2020-10-02] MEDS: METOCLOPRAMIDE 10 MG/2 ML VIAL IV SCH ×4 (05:29→23:39)
[2020-10-02] MEDS: 0.9 % SODIUM CHLORIDE 10 ML SYRINGE IV SCH ×3 (06:08→20:55)
[2020-10-02] MEDS: LACTATED RINGERS 1,000 ML IV SCH ×4 (06:55→20:35)
[2020-10-02] MEDS: METOPROLOL SUCCINATE 50 MG TAB.XL.24H PO SCH (07:33)
[2020-10-02] MEDS: CARVEDILOL 12.5 MG TABLET PO SCH (07:55)
[2020-10-02] MEDS: PANTOPRAZOLE 40 MG VIAL IV SCH ×2 (07:55→17:25)
[2020-10-02 09:53] LABS: Basophils # (Auto) 0.02 K/mcL (0.00-0.20); Basophils % (Auto) 0.2 % (0.0-2.0); Eosinophils # (Auto) 0.04 K/mcL (0.00-0.70); Eosinophils % (Auto) 0.4 % (0.0-7.0); Hematocrit 33.1 % (41.0-55.0); Hemoglobin 10.6 g/dL (13.5-16.5); Lymphocytes % (Auto) 9.8 % (15.0-49.0); Mean Cell Volume 89.7 fL (80.0-100.0); Mean Platelet Volume 11.2 fL (7.4-10.4); Monocytes # (Auto) 0.74 K/mcL (0.10-0.90); Monocytes % (Auto) 8.1 % (1.0-12.0); Neutrophils % (Auto) 81.5 % (38.0-78.0); Platelet Count 147 K/mcL (140-440); RBC 3.69 M/mcL (4.50-5.90); Red Cell Distribution Width 14.9 % (11.5-14.5); WBC 9.2 K/mcL (4.5-11.0)
[2020-10-02 09:58] LABS: ALT/SGPT 19 U/L (<40); AST/SGOT 31 U/L (<40); Albumin 3.4 gm/dL (3.2-5.2); Albumin/Globulin Ratio 1.2 (1.0-2.3); Alkaline Phosphatase 45 U/L (39-117); Bilirubin,Direct 0.4 mg/dL (<0.3); Bilirubin,Total 1.6 mg/dL (0.1-1.0); Blood Urea Nitrogen 8 mg/dL (8-23); Calcium 8.7 mg/dL (8.6-10.4); Carbon Dioxide 22 mmol/L (22-30); Chloride 99 mmol/L (96-108); Globulin 2.8 gm/dL (2.2-3.7); Glomerular Filtration Rate 88; Glucose 104 mg/dL (70-105); Lactate Dehydrogenase 352 U/L (135-225); Triglycerides 89 mg/dL (<150); Uric Acid 2.6 mg/dL (2.5-8.0)
--- NOTE | 2020-10-02 13:52 | General Surgery Progress Note ---
SUBJECTIVE Subjective Patient information: Note initiated : 10/02/20 at 1:48 pm Service Date, if different from initiated Date: [] Patient: Dakota Mejia 80 y/o M admitted on 09/29/20 for Subtotal Colectomy with Ileosigmoid Anastomosis. Chief Complaint: [] Principal diagnosis: Subtotal colectomy Interval history: Patient was progressing well but he developed some abdominal distention and had nausea with vomiting earlier this morning. He put out over 800 cc of bilious drainage through his NG. He however had bowel movements last evening and he has had another bowel movement this morning and is passing flatus. It's probable that he still has a moderate amount of ileus. He states that he feels much better. He however has some distention still. White blood count 9.2, hemoglobin 10.6, hematocrit 33.1, potassium 3.5, BUN 8, creatinine 0.7. Constitutional Vitals: Vital Signs Temp Pulse Resp BP Pulse Ox 98.3 F 71 18 155/98 93 10/02/20 12:00 10/02/20 12:00 10/02/20 12:00 10/02/20 12:00 10/02/20 12:00 Period Temp Pulse Resp BP Sys/Yo Pulse Ox Last 24 Hr 98.0 F-99.7 F 71-110 16-20 138-179/78-98 92-95 Intake and Output 10/01/20 10/02/20 10/02/20 21:59 05:59 13:59 Intake Total 759 1659.0909 150 Output Total 150 950 Balance 609 1659.0909 -800 Weight 208 lb 1.6 oz Intake & Output: Intake & Output 10/01/20 10/02/20 10/02/20 21:59 05:59 13:59 Intake Total 759 1659.0909 150 Output Total 150 950 Balance 609 1659.0909 -800 Weight 208 lb 1.6 oz Intake: IV 659 1659.0909 150 Lactated Ringers 1,000 ml @ 100 1000 mls/hr IV .Q10H LOIDA Rx#: [id number] Zosyn 3.375 gm In Dextrose 5% 50 50 50 in Water 50 ml @ 100 mls/hr IV Q6H LOIDA Rx#:[id number] Potassium Phosphate 40 Meq In 149 515.3613 Dextrose 5% in Water 500 ml @ 127.273 mls/hr IV Q4H [facility] Rx#: [id number] Oral 100 Output: Gastric Drainage 800 NG/OG 800 Void Amount 150 Emesis 150 Other: Urine Appearance Clear Urine Color Pale Urine Odor Normal Stool Size Moderate Moderate Stool Color Brown Brown Green Stool Consistency Soft Liquid Loose Loose # Voids 2 # Bowel Movements 2 ENT ENT exam: Present mucous membranes moist, normal exam and normal oropharynx Respiratory Respiratory exam: Present normal respiratory exam and CTAB; Absent rales, rhonchi and wheezes Cardiovascular Cardiovascular exam: Present normal rate and rhythm, RRR, +S1 and +S2; Absent JVD GI/Abdominal GI/Abdominal exam: Present distended (Mild distention), hypoactive bowel sounds and tenderness (Moderate incisional tenderness) Extremities Exam Extremities exam: Present normal capillary refill and normal inspection; Absent tenderness Neurological Exam Neurological exam: Present CN II-XII intact and oriented X3; Absent motor sensory deficit Psychiatric Psychiatric exam: Present normal mood A/P Assessment and plan (1) Adenocarcinoma of descending colon: Status: 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
[2020-10-03] MEDS: PIPERACILLIN SODIUM/TAZOBACTAM 3.375 GM in DEXTROSE 5% IN WATER 50 ML IV SCH ×4 (00:28→18:40)
[2020-10-03] MEDS: LORazepam 2 MG/ML VIAL IV PRN ×2 (01:26→23:45)
[2020-10-03] MEDS: 0.9 % SODIUM CHLORIDE 10 ML SYRINGE IV SCH ×3 (04:09→23:32)
[2020-10-03] MEDS: METOCLOPRAMIDE 10 MG/2 ML VIAL IV SCH ×3 (05:20→17:42)
[2020-10-03] MEDS: ACETAMINOPHEN 1,000 MG/100 ML BAG IV SCH ×4 (05:20→23:47)
[2020-10-03] MEDS: LACTATED RINGERS 1,000 ML IV SCH ×2 (06:33→14:01)
[2020-10-03] MEDS: PANTOPRAZOLE 40 MG VIAL IV SCH ×2 (08:04→17:42)
--- NOTE | 2020-10-03 08:38 | XRay Report ---
CLINICAL INFORMATION: Postoperative ileus COMPARISON: 04/09/2018 FINDINGS: NG tube is now coiled in the gastric fundus. Stomach and proximal small bowel are minimally dilated with air-fluid levels with equivocal decompression of the distal small bowel and colon. No free air or soft tissue mass. IMPRESSION: Nonspecific stool gas pattern most compatible postoperative ileus. Interpreted and Authenticated by: Keon Mustafa 10/03/20
[2020-10-03] MEDS: METOPROLOL SUCCINATE 50 MG TAB.XL.24H PO SCH (08:42)
--- NOTE | 2020-10-03 08:45 | Operative Note ---
DATE OF OPERATION: 09/29/2020 PREOPERATIVE DIAGNOSES: Colon cancer; multiple colon polyps; history of metastatic colon cancer. POSTOPERATIVE DIAGNOSES: Colon cancer; multiple colon polyps; history of metastatic colon cancer. PROCEDURE: Subtotal colectomy with ileosigmoid anastomosis. SURGEON: Flor Vuong M.D. FINDINGS: Moderate adhesions due to previous colon surgery and a partial hepatectomy; two areas of tattooing, one at the hepatic flexure and one in the descending colon; three fibrotic dense nodular masses in the wall of the descending colon, which was presumed to be the area of the new carcinoma. DESCRIPTION OF PROCEDURE: Under general anesthesia, the patient's abdomen was prepped and draped in a sterile field. Time-out procedure was carried out as per protocol. A midline incision was made. There were dense adhesions to the peritoneum from previous surgery. These adhesions were taken down using electrocautery. Once the omentum was freed from the peritoneal surface, the abdomen was explored. There were adhesions in the right upper quadrant, which had to be taken down and there were other adhesions in the left upper quadrant near the hepatic flexure. The hepatic flexure had been previously mobilized. The procedure was advanced by initially mobilizing the terminal ileum. Once this was done, the cecum was mobilized along the line of Toldt starting in the right lower quadrant extending up to the hepatic flexure. The hepatic flexure was densely adhered and the adhesions were taken down using the Voyant cautery device. The hepatic flexure was then mobilized using the Voyant cautery device. The gastrocolic omentum was divided using the Voyant device and this was extended over to the splenic flexure. Splenic flexure was further mobilized using blunt dissection and electrocautery. The descending colon was then mobilized and retracted medially. This dissection was carried down to the mid descending colon. Once this was done, the terminal ileum was divided using a Contour stapler. The mesentery was then divided sequentially, starting at the cecum, extending up to the hepatic flexure, across the transverse colon and down the descending colon. This freed up the entire colon down to the proximal sigmoid. The sigmoid was divided using Contour stapler. The specimen was passed off. Copious irrigation was carried out. There was no significant bleeding. Next, the terminal ileum was further mobilized until it rested freely in the left lower quadrant. A [id number] stapled anastomosis between the terminal ileum and the residual sigmoid colon was carried out using a EVELYN 55 stapler. The residual openings were closed using 2 firings of the TA 60 stapler. The mesenteric defect was closed using interrupted 3-0 silk. Inspection was carried out. The staple line between the ileum and the sigmoid was oversewn using running locking 2-0 Prolene. The pelvis and upper abdomen were irrigated, and thoroughly inspected for bleeding. No bleeding was noted. Sponge, needle, instrument, and blade counts were verified as correct. The peritoneum and fascia were closed with running #1 Prolene. Subcutaneous tissue was closed with 2-0 Monocryl. Skin was closed with nidia. The patient tolerated the procedure well. He was awakened, transferred to a bed after a dressing was placed. He was transferred to the postanesthetic care unit in satisfactory condition. LCS:stefani Job ID: [id number] Doc ID: [id number] Flor Vuong M.D.
--- NOTE | 2020-10-03 13:17 | General Surgery Progress Note ---
SUBJECTIVE Subjective Patient information: Note initiated : 10/03/20 at 1:14 pm Service Date, if different from initiated Date: [] Patient: Dakota Mejia 80 y/o M admitted on 09/29/20 for Subtotal Colectomy with Ileosigmoid Anastomosis. Chief Complaint: [] Principal diagnosis: Subtotal colectomy Interval history: Patient feels better. He has had multiple moderate sized bowel movements and is passed a large volume of flatus. Abdominal x-rays shows moderate amount of dilated small bowel but no free air. Nasogastric output is minimal. Constitutional Vitals: Vital Signs Temp Pulse Resp BP Pulse Ox 98.4 F 93 H 24 H 145/81 93 10/03/20 08:00 10/03/20 08:00 10/03/20 08:00 10/03/20 08:00 10/03/20 08:00 Period Temp Pulse Resp BP Sys/Yo Pulse Ox Last 24 Hr 97.8 F-99.1 F 93-113 18-24 141-160/79-83 93-95 Intake and Output 10/02/20 10/03/20 10/03/20 21:59 05:59 13:59 Intake Total 1560 250 50 Output Total 900 140 300 Balance 660 110 -250 Weight 208 lb 1.6 oz 208 lb 1.6 oz Patient Weight 10/04/20 05:59 Weight 208 lb 1.6 oz Intake & Output: Intake & Output 10/02/20 10/03/20 10/03/20 21:59 05:59 13:59 Intake Total 1560 250 50 Output Total 900 140 300 Balance 660 110 -250 Weight 208 lb 1.6 oz 208 lb 1.6 oz Intake: IV 1250 250 50 Lactated Ringers 1,000 ml @ 100 1000 mls/hr IV .Q10H LO[facility] Rx#: [id number] Zosyn 3.375 gm In Dextrose 5% 50 50 50 in Water 50 ml @ 100 mls/hr IV Q6H LOIDA Rx#:[id number] Oral 250 0 Tube Feeding 0 0 NG Tube Flush 60 Left Nare 60 Output: Gastric Drainage 700 140 Left Nare 100 140 NG/OG 600 Void Amount 200 Stool 300 Other: Urine Appearance Clear Urine Color Bright Yellow Urine Odor Normal Stool Size Small Moderate Moderate Stool Color Brown Green Green Green Stool Consistency Loose Liquid Liquid Loose # Voids 1 1 1 # Bowel Movements 1 1 1 # of times incontinent of 1 1 Bowels ENT ENT exam: Present mucous membranes moist, normal exam and normal oropharynx Additional comments: Hard of hearing bilaterally Neck Neck exam: Present full ROM and normal inspection; Absent lymphadenopathy Respiratory Respiratory exam: Present normal respiratory exam and CTAB; Absent rales, respiratory distress, rhonchi and wheezes Cardiovascular Cardiovascular exam: Present normal rate and rhythm, RRR, +S1 and +S2; Absent JVD GI/Abdominal GI/Abdominal exam: Present distended (Mild distention), hypoactive bowel sounds and tenderness (Moderate incisional tenderness) Extremities Exam Extremities exam: Present normal capillary refill and normal inspection; Absent tenderness Neurological Exam Neurological exam: Present CN II-XII intact and oriented X3; Absent motor sensory deficit Psychiatric Psychiatric exam: Present normal mood A/P Assessment and plan (1) Adenocarcinoma of descending colon: Status: Acute (2) Adenocarcinoma of sigmoid colon: Status: Chronic (3) 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 Time Spent With Patient Time: Total time spent is greater than 50% in coordination of care (as docum ented) at patient's floor/unit and/or counseling patient:
[2020-10-04] MEDS: METOCLOPRAMIDE 10 MG/2 ML VIAL IV SCH ×3 (00:48→11:18)
[2020-10-04] MEDS: PIPERACILLIN SODIUM/TAZOBACTAM 3.375 GM in DEXTROSE 5% IN WATER 50 ML IV SCH ×2 (00:54→06:11)
[2020-10-04] MEDS: LACTATED RINGERS 1,000 ML IV SCH (02:55)
[2020-10-04] MEDS: ACETAMINOPHEN 1,000 MG/100 ML BAG IV SCH ×2 (05:06→11:19)
[2020-10-04] MEDS: 0.9 % SODIUM CHLORIDE 10 ML SYRINGE IV SCH (05:32)
[2020-10-04] MEDS: PANTOPRAZOLE 40 MG VIAL IV SCH (07:07)
[2020-10-04] MEDS: METOPROLOL SUCCINATE 50 MG TAB.XL.24H PO SCH (08:15)
--- NOTE | 2020-10-04 09:16 | Surgical Pathology Report ---
Histology Microscopic Diagnosis Specimen A- COLON, TERMINAL ILEUM, COLECTOMY: --- INVASIVE MODERATELY DIFFERENTIATED ADENOCARCINOMA. (SEE SUMMARY CANCER DATA) --- SIZE: 3.0 x 1.0 cm. --- DEPTH OF INVASION: TUMOR INVADES THROUGH MUSCULARIS PROPRIA INTO PERICOLORECTAL TISSUE, WITH A MAXIMUM THICKNESS OF 0.7 cm. --- LYMPH-VASCULAR INVASION: NOT IDENTIFIED. --- SURGICAL MARGINS: FREE OF MALIGNANCY. --- LYMPH NODES: ALL 24 PERICOLONIC LYMPH NODES NEGATIVE FOR METASTATIC CARCINOMA. --- PATHOLOGIC STAGE: pT3 pN0 MX. --- ADDITIONAL FINDINGS: -- MULTIPLE TUBULAR ADENOMAS. -- SUBMUCOSAL LIPOMA. -- SURGICAL ABSENCE OF APPENDIX. -- DIVERTICULAR DISEASE. (ACP:bmw) SUMMARY CANCER DATA Procedure: Right colectomy with transverse and descending colon segments Tumor Site: Descending colon ([id number], 09/08/2020) Histologic Type: Adenocarcinoma Histologic Grade: Moderately differentiated (G2) Tumor Size: 3.0 x 1.1 cm x 0.7 cm Microscopic Tumor Extension: Tumor invades through muscularis propria into pericolorectal tissue Macroscopic Tumor Perforation: Not identified Lymph-Vascular Invasion: Not identified Perineural Invasion: Not identified Tumor Deposits (discontinuous extramural extension): Not identified Treatment Effect: No known presurgical therapy Margins: Proximal Margin: 42 cm Distal Margin: 15 cm Circumferential (Radial) or Mesenteric Margin: 10 cm Distance of invasive carcinoma from closest margin: 10.0 cm Lymph nodes: Number of Lymph Nodes examined: 24 Number of Lymph Nodes involved: 0 Pathologic Stage: pT3 pN0 MX Additional findings: Multiple tubular adenomas Submucosal lipoma Surgical absence of appendix Diverticular disease Procedural Impression Adenocarcinoma. Gross Description Received in formalin labeled colon, is a resection of large intestine including cecum transverse and descending colon. The specimen is 60 cm in length and the cecum is 5 cm in diameter. The remaining portion of the colon is up to 3.5 cm in diameter. Attached fat is up to 12 cm. Accompanying fat includes omentum, epiploic fat and mesentery. A small segment terminal ileum is present. The appendix is surgically absent. Both margins are stapled. Within the specimen are a few polypoid masses. There is a roughened area on the surface of the ileocecal valve. This roughened area measures 0.8 x 1.0 x 0.3 cm thick. This is 3 cm from the proximal stapled stapled margin. One polypoid lesion measures 0.2 x 0.5 x 1.5 cm and is 13.5 cm from the proximal margin. A second polyp is 0.3 cm in diameter is also 13.5 cm from the proximal margin. Another polyp is 0.4 cm in diameter and is 15 cm from the proximal margin. The next mucosal polyp is 0.4 x 1.2 x 0.4 cm and is 30 cm from the proximal margin. There is a depressed area without mucosal folds approximately 32 cm from the proximal margin. This measures 1 cm in diameter and is 0.5 cm deep. This is surrounded by roughened mucosa which is 2.5 x 2.5 cm. The final mucosal polyp is 41 cm from the proximal margin and measures 0.5 x 0.8 x 0.8 cm. There is an ulcerated mass that measures 3.0 x 1.1 cm and is present 15 cm from the distal margin and 42 cm from the ileal margin. The serosa over this area is covered by epiploic fat and the closest resected fat margin is 10 cm from this mass. The serosa overlying this mass is inked black. On cut sections the mass abuts the serosa but no macroscopic extension through the wall is identified. There is no macroscopic perforation. Also there are a few unremarkable diverticula within the specimen. No other masses or lesions are identified. Thorough examination of the fat reveals numerous possible lymph nodes. Sections submitted: A1 - margins with the proximal margin inked black; A2 - first described polyp totally submitted; A3 - second described polyp serosa inked totally submitted; A4 - possible polyps 3, 4, and 5; A5-A6 - mucosal depression; A7 - apparent polyp at 41 cm; A8 - ileocecal valve; A9-A11 - prominent mass; A12 - diverticula x 3 and appendix stump; A13 - six lymph nodes one inked black and bisected; A14 - two nodes one inked black and bisected and one not inked and bisected; A15 - three possible lymph nodes one inked black and bisected, one inked orange and bisected and one not inked and bisected; A16 - six nodes one inked black and bisected, one inked orange and bisected; A17 - five lymph nodes one inked black and bisected; A18 - four lymph nodes. (RAD:bmw) Electronically Signed Mc Rocha MD, FCAP Electronically Signed 10/04/2020 09:15
[2020-10-04] MEDS: LORazepam 2 MG/ML VIAL IV PRN (09:26)
--- NOTE | 2020-10-04 09:48 | XRay Report ---
CLINICAL INFORMATION: Postoperative ileus COMPARISON: 10/03/2020 FINDINGS: NG tube now out. Stomach and a few loops of proximal small bowel show borderline dilatation. Normal amounts of gas seen in the distal small bowel and colon. No free air. IMPRESSION: Improving postoperative ileus Interpreted and Authenticated by: Keon Mustafa 10/04/20
--- NOTE | 2020-10-04 12:48 | Discharge Summary ---
Discharge Provider Provider Patient information: Note initiated : 10/04/20 at 12:40 pm Service Date, if different from initiated Date: [] Patient: Dakota Mejia 80 y/o M admitted on 09/29/20 for Subtotal Colectomy with Ileosigmoid Anastomosis. Chief Complaint: [] Date of admission: 09/29/20 12:23 Discharge date: 10/04/20 Primary care physician: Harpreet Bloom MD Admitting clinician: Flor Vuong Attending physician on admission: Flor Vuong Attending physician on discharge: Flor Vuong Discharging clinician: Flor Vuong COURSE Hospital Course Hospital course: 80-year-old male admitted post procedure status post subtotal colectomy with ileal sigmoid colostomy. This was performed because of adenocarcinoma of the descending colon, prior history of left colon cancer and suspicious flat-based polyp of right hepatic flexure with prior history of adenocarcinoma with liver metastasis and family history of colon cancer. Patient has done very well during this hospitalization. He was passing flatus by day 2 postoperatively. He had a small bowel movement on day 3 and he is now tolerating full liquids with multiple bowel movements daily. His incisional pain is controlled. Patient is stable for discharge home. Discharge diagnosis: Adenocarcinoma descending colon Secondary discharge diagnosis: History of metastatic sigmoid carcinoma History of multiple colon polyps Family history of colon cancer Reason for admission: Postoperative subtotal colectomy Procedures: Subtotal colectomy with ileal distal sigmoid colostomy Pertinent studies/significant findings: None Complications: None Time Spent with Patient Time attestation: Total time spent providing and/or coordinating discharge services: Physical Examination Vital Signs Vital signs: Temp Pulse Resp BP Pulse Ox 98.1 F 94 H 22 149/79 96 10/04/20 08:00 10/04/20 09:33 10/04/20 09:33 10/04/20 09:33 10/04/20 09:33 General physical appearance General physical exam: well developed, well nourished, no distress, moderate pain and chronically ill Eyes Eye exam: PERRL and normal ocular movement ENT ENT exam: normal nares, normal mucosa, decreased hearing (Bilateral neurosensory hearing loss) and dentures Neck Neck exam: no masses, no bruits, trachea midline and no lymphadenopathy Cardiovascular Cardiovascular exam IM: Present normal rate and rhythm, RRR, +S1 and +S2; Absent gallop and JVD Respiratory Respiratory exam: normal expansion, normal respiratory effort and clear to auscultation Abdomen Abdomen: Present tender (Mild incisional tenderness) Integumentary Integumentary: Present no rash, no growths and no abnormal pigmentation Neurologic Neurologic: Present normal coordination and normal sensation Musculoskeletal Musculoskeletal: Present normal gait and normal posture Psychiatric Psychiatric: Present oriented to time, oriented to person, oriented to place, speech is normal and memory intact Discharge Plan Patient/Caregiver Discharge Instructions Activity: increase activity as tolerated Instructions: Soft Diet (GEN), Colectomy (GEN) Activity Restrictions/Additional Instructions: Weight restriction, nothing over 20 pounds. Keep dressing in place until your appointment with Dr. Vuong Prescriptions: Continued cyanocobalamin (vitamin B-12) 1,000 mcg capsule 1,000 mcg capsule 1,000 mcg PO QMONTH RF: 0 diclofenac sodium [Voltaren] 1 % gel 2 g TOPICAL .COMPLEX PRN (Reason: pain) Qty: 100 RF: 0 warfarin 3 mg tablet 3 mg PO DAILY Qty: 30 RF: 6 albuterol sulfate 90 mcg/actuation HFA aerosol inhaler See Rx Instructions .ROUTE .COMPLEX Qty: 18 RF: 6 hydrocodone-acetaminophen 7.5-325 mg tablet 1 - 2 tab PO Q4HP PRN (Reason: Pain) Qty: 120 RF: 0 nitroglycerin 0.4 mg tablet, sublingual 0.4 mg SUBLINGUAL Q5-15M PRN (Reason: Chest Pain) RF: 0 furosemide 20 MG tablet 20 mg PO DAILY RF: 0 metoprolol succinate 100 mg Tablet Extended Release 24 Hr 100 mg PO QDAY RF: 0 rosuvastatin 40 mg Tablet 40 mg PO QPM RF: 0 potassium chloride 10 mEq tablet extended release 10 meq PO DAILY RF: 0 famotidine 20 mg tablet 20 mg PO DAILY RF: 0 tamsulosin 0.4 mg capsule 0.4 mg PO HS RF: 0 esomeprazole magnesium 40 mg capsule,delayed release(DR/EC) 40 mg PO QAM RF: 0 montelukast 10 mg tablet 10 mg PO HS RF: 0 lorazepam 2 mg Tablet 2 mg PO TID PRN (Reason: Anxiety) RF: 0 Follow Up Plan Follow up with: Flor Vuong MD [Physician] - 10/16/20 9:15 am Patient Disposition: Home, Self-Care Prognosis: Good Rehab Potential: Good I certify that the patient requires SNF services: No Overall status at discharge: patient is progressing back to baseline Discharge Orders: Discharge Order (Routine); Ordered 10/04/20 Ordered By: Flor Vuong Pending Pending Pending: Resuscitation Status Full Code Diet Full Liquid Diet Start FriOct 03 1318 Hydromorphone HCl (Hydromorphone 1 Mg/Ml Syringe) 1 mg IV Q2HP PRN; Protocol PRN Reason: Per Pain Protocol Last Admin: 10/01/20 10:25 Dose: 1 mg Documented by: Admin: 10/01/20 04:39 Dose: 1 mg Documented by: Admin: 10/01/20 01:38 Dose: 1 mg Documented by: Admin: 09/30/20 21:42 Dose: 1 mg Documented by: Admin: 09/30/20 16:30 Dose: 1 mg Documented by: Admin: 09/30/20 11:49 Dose: 1 mg Documented by: Admin: 09/30/20 08:09 Dose: 1 mg Documented by: Admin: 09/30/20 06:00 Dose: 1 mg Documented by: Admin: 09/30/20 03:32 Dose: 1 mg Documented by: Admin: 09/30/20 01:27 Dose: 1 mg Documented by: Admin: 09/29/20 22:53 Dose: 0.5 mg Documented by: NATACHA Piperacillin Sod/Tazobactam (Sod 3.375 gm/ Dextrose) 50 mls @ 100 mls/hr IV Q6H LOIDA; Protocol Last Infusion: 10/04/20 07:08 Dose: 100 mls/hr Documented by: Admin: 10/04/20 06:11 Dose: 100 mls/hr Documented by: Infusion: 10/04/20 02:34 Dose: 0 mls/hr Documented by: Admin: 10/04/20 00:54 Dose: 100 mls/hr Documented by: Infusion: 10/03/20 19:22 Dose: 0 mls/hr Documented by: Admin: 10/03/20 18:40 Dose: 100 mls/hr Documented by: Infusion: 10/03/20 14:17 Dose: 0 mls/hr Documented by: Admin: 10/03/20 13:38 Dose: 100 mls/hr Documented by: Infusion: 10/03/20 07:44 Dose: 0 mls/hr Documented by: Admin: 10/03/20 06:07 Dose: 100 mls/hr Documented by: Infusion: 10/03/20 00:59 Dose: 0 mls/hr Documented by: Admin: 10/03/20 00:28 Dose: 100 mls/hr Documented by: Infusion: 10/02/20 17:53 Dose: 0 mls/hr Documented by: Admin: 10/02/20 17:25 Dose: 100 mls/hr Documented by: GEOVANNIORGAN Infusion: 10/02/20 13:00 Dose: 0 mls/hr Documented by: GEOVANNIORGAN Admin: 10/02/20 12:30 Dose: 100 mls/hr Documented by: GEOVANNIORGAN Infusion: 10/02/20 06:33 Dose: 0 mls/hr Documented by: GEOVANNIORGAN Admin: 10/02/20 06:03 Dose: 100 mls/hr Documented by: LEONARDASVADIME Infusion: 10/02/20 01:08 Dose: 100 mls/hr Documented by: LEONARDASFITran Admin: 10/02/20 00:38 Dose: 100 mls/hr Documented by: Infusion: 10/01/20 18:52 Dose: 100 mls/hr Documented by: Admin: 10/01/20 18:22 Dose: 100 mls/hr Documented by: GEOVANNIORGAN Infusion: 10/01/20 13:45 Dose: 0 mls/hr Documented by: GEOVANNIORGAN Admin: 10/01/20 13:15 Dose: 100 mls/hr Documented by: GEOVANNIORGAN Infusion: 10/01/20 06:08 Dose: 0 mls/hr Documented by: Admin: 10/01/20 05:27 Dose: 100 mls/hr Documented by: Infusion: 10/01/20 01:30 Dose: 100 mls/hr Documented by: Admin: 10/01/20 00:45 Dose: 100 mls/hr Documented by: Infusion: 09/30/20 19:45 Dose: 100 mls/hr Documented by: Admin: 09/30/20 19:15 Dose: 100 mls/hr Documented by: Infusion: 09/30/20 13:40 Dose: 0 mls/hr Documented by: Admin: 09/30/20 13:05 Dose: 100 mls/hr Documented by: GEOVANNIORGAN Infusion: 09/30/20 06:32 Dose: 0 mls/hr Documented by: GEOVANNIORGAN Admin: 09/30/20 06:02 Dose: 100 mls/hr Documented by: Infusion: 09/30/20 02:00 Dose: 0 mls/hr Documented by: Admin: 09/30/20 01:27 Dose: 100 mls/hr Documented by: Infusion: 09/29/20 21:15 Dose: 0 mls/hr Documented by: Admin: 09/29/20 20:40 Dose: 100 mls/hr Documented by: NATACHA Acetaminophen (Ofirmev) 1,000 mg in 100 mls @ 200 mls/hr IV Q6 LOIDA; Protocol Last Admin: 10/04/20 11:19 Dose: 200 mls/hr Documented by: Infusion: 10/04/20 06:08 Dose: 0 mls/hr Documented by: Admin: 10/04/20 05:06 Dose: 200 mls/hr Documented by: Infusion: 10/04/20 00:18 Dose: 200 mls/hr Documented by: Admin: 10/03/20 23:47 Dose: 200 mls/hr Documented by: Infusion: 10/03/20 19:44 Dose: 0 mls/hr Documented by: Admin: 10/03/20 17:43 Dose: 200 mls/hr Documented by: Infusion: 10/03/20 14:02 Dose: 200 mls/hr Documented by: Admin: 10/03/20 12:14 Dose: 200 mls/hr Documented by: Infusion: 10/03/20 05:50 Dose: 0 mls/hr Documented by: GEOVANNIORGAN Admin: 10/03/20 05:20 Dose: 200 mls/hr Documented by: Infusion: 10/03/20 00:38 Dose: 0 mls/hr Documented by: Admin: 10/02/20 23:42 Dose: 100 mls/hr Documented by: Infusion: 10/02/20 19:05 Dose: 0 mls/hr Documented by: Admin: 10/02/20 17:57 Dose: 200 mls/hr Documented by: GEOVANNIORGAN Infusion: 10/02/20 14:09 Dose: 0 mls/hr Documented by: GEOVANNIORGAN Admin: 10/02/20 13:39 Dose: 200 mls/hr Documented by: GEOVANNIORGAN Infusion: 10/02/20 06:00 Dose: 0 mls/hr Documented by: LEONARDASFITran Admin: 10/02/20 05:29 Dose: 200 mls/hr Documented by: Infusion: 10/02/20 00:25 Dose: 200 mls/hr Documented by: Infusion: 10/01/20 23:55 Dose: 200 mls/hr Documented by: Admin: 10/01/20 23:55 Dose: 100 mls/hr Documented by: Infusion: 10/01/20 18:40 Dose: 100 mls/hr Documented by: Admin: 10/01/20 17:40 Dose: 100 mls/hr Documented by: Infusion: 10/01/20 13:01 Dose: 0 mls/hr Documented by: Admin: 10/01/20 11:50 Dose: 100 mls/hr Documented by: Infusion: 10/01/20 06:38 Dose: 0 mls/hr Documented by: Admin: 10/01/20 06:08 Dose: 200 mls/hr Documented by: Infusion: 10/01/20 01:30 Dose: 200 mls/hr Documented by: Admin: 09/30/20 23:34 Dose: 200 mls/hr Documented by: Infusion: 09/30/20 20:19 Dose: 200 mls/hr Documented by: Admin: 09/30/20 19:49 Dose: 200 mls/hr Documented by: Infusion: 09/30/20 13:01 Dose: 0 mls/hr Documented by: Admin: 09/30/20 12:31 Dose: 200 mls/hr Documented by: ADRIANA Lactated Ringer's (Lactated Ringers) 1,000 mls @ 100 mls/hr IV .Q10H [facility] Last Admin: 10/04/20 02:55 Dose: 100 mls/hr Documented by: Infusion: 10/04/20 02:36 Dose: 100 mls/hr Documented by: Admin: 10/03/20 14:01 Dose: 100 mls/hr Documented by: Infusion: 10/03/20 14:01 Dose: 0 mls/hr Documented by: Admin: 10/03/20 06:33 Dose: Not Given Documented by: Admin: 10/02/20 20:35 Dose: 100 mls/hr Documented by: Infusion: 10/02/20 18:55 Dose: 100 mls/hr Documented by: Admin: 10/02/20 17:42 Dose: Not Given Documented by: Admin: 10/02/20 08:47 Dose: 100 mls/hr Documented by: ADRIANA Lorazepam (Lorazepam 2 Mg/Ml Vial) 0.5 mg IV Q4HP PRN PRN Reason: ANXIETY/SEDATION Last Admin: 10/04/20 09:26 Dose: 0.5 mg Documented by: Admin: 10/03/20 23:45 Dose: 0.5 mg Documented by: Admin: 10/03/20 01:26 Dose: 0.5 mg Documented by: Admin: 10/02/20 00:18 Dose: 0.5 mg Documented by: LEIF Metoclopramide HCl (Metoclopramide 10 Mg/2 Ml Vial) 10 mg IV Q6 [facility] Last Admin: 10/04/20 11:18 Dose: 10 mg Documented by: Admin: 10/04/20 05:31 Dose: 10 mg Documented by: Admin: 10/04/20 00:48 Dose: 10 mg Documented by: Admin: 10/03/20 17:42 Dose: 10 mg Documented by: Admin: 10/03/20 12:15 Dose: 10 mg Documented by: Admin: 10/03/20 05:20 Dose: 10 mg Documented by: Admin: 10/02/20 23:39 Dose: 10 mg Documented by: Admin: 10/02/20 17:25 Dose: 10 mg Documented by: Admin: 10/02/20 12:30 Dose: 10 mg Documented by: Admin: 10/02/20 05:29 Dose: 10 mg Documented by: Admin: 10/01/20 23:55 Dose: 10 mg Documented by: Admin: 10/01/20 17:08 Dose: 10 mg Documented by: Admin: 10/01/20 11:50 Dose: 10 mg Documented by: Admin: 10/01/20 06:08 Dose: 10 mg Documented by: Admin: 09/30/20 23:34 Dose: 10 mg Documented by: Admin: 09/30/20 17:50 Dose: 10 mg Documented by: Admin: 09/30/20 11:55 Dose: 10 mg Documented by: Admin: 09/30/20 05:55 Dose: 10 mg Documented by: Admin: 09/30/20 00:23 Dose: 10 mg Documented by: Admin: 09/29/20 19:32 Dose: 10 mg Documented by: NATACHA Metoprolol Succinate (Metoprolol Succinate 50 Mg Tab.Xl.24h) 100 mg PO QDAY [facility] Admin: 10/04/20 08:15 Dose: 100 mg Documented by: Admin: 10/03/20 08:42 Dose: 100 mg Documented by: Admin: 10/02/20 07:33 Dose: Not Given Documented by: Admin: 10/01/20 07:30 Dose: Not Given Documented by: Admin: 09/30/20 08:13 Dose: Not Given Documented by: ADRIANA Pantoprazole Sodium (Pantoprazole 40 Mg Vial) 40 mg IV BIDAC LOIDA Last Admin: 10/04/20 07:07 Dose: 40 mg Documented by: Admin: 10/03/20 17:42 Dose: 40 mg Documented by: Admin: 10/03/20 08:04 Dose: 40 mg Documented by: Admin: 10/02/20 17:25 Dose: 40 mg Documented by: Admin: 10/02/20 07:55 Dose: 40 mg Documented by: Admin: 10/01/20 17:08 Dose: 40 mg Documented by: Admin: 10/01/20 07:47 Dose: 40 mg Documented by: Admin: 09/30/20 17:50 Dose: 40 mg Documented by: Admin: 09/30/20 08:09 Dose: 40 mg Documented by: Admin: 09/29/20 19:32 Dose: 40 mg Documented by: NATACHA Sodium Chloride (0.9 % Sodium Chloride 10 Ml Syringe) 10 ml IV Q8 [facility] Admin: 10/04/20 05:32 Dose: Not Given Documented by: Admin: 10/03/20 23:32 Dose: Not Given Documented by: Admin: 10/03/20 13:59 Dose: Not Given Documented by: Admin: 10/03/20 04:09 Dose: Not Given Documented by: Admin: 10/02/20 20:55 Dose: Not Given Documented by: Admin: 10/02/20 12:23 Dose: Not Given Documented by: Admin: 10/02/20 06:08 Dose: 10 ml Documented by: Admin: 10/01/20 21:58 Dose: Not Given Documented by: Admin: 10/01/20 13:27 Dose: Not Given Documented by: Admin: 10/01/20 04:40 Dose: Not Given Documented by: Admin: 09/30/20 21:43 Dose: Not Given Documented by: Admin: 09/30/20 12:04 Dose: Not Given Documented by: Admin: 09/30/20 06:09 Dose: 10 ml Documented by: Admin: 09/29/20 20:40 Dose: 10 ml Documented by: NATACHA Shift Summary 10/04/20 02:39 Shift Summary by Michelle Ceja Pt is A/O, has been calling appropriately, BA in place for impulsivity. Pt got increasingly anxious at night time, PRN ativan given x1, pt is resting and sleeping. Abd incision with nidia covered with tagaderm. Pt tolerating full liquid diet, no complaints of nausea/vomiting or abd pain. Scheduled IV acetaminophen, Reglan and Zosyn. L arm PIV. Frequent loose stools brown or greenish color. Stable on RA. Initialized on 10/04/20 02:39 - END OF NOTE
== END 2020-10-04 14:15 | disposition home or self-care (01) | DRG 330 ==
LOC: MEDSUR 12:23
PROVIDERS: ADMIT Family Medicine Adult Medicine; ATTEND Family Medicine Adult Medicine

== ENCOUNTER 2022-04-03 11:29 | Inpatient (IN) ==
[2022-04-03 12:00] LABS: POC Calcium, Ionized 0.92 (1.16-1.32); POC Creatinine 2.4 (0.6-1.2); POC Potassium 3.7 (3.3-5.1)
[2022-04-03] MEDS ORDERED: 0.9 % SODIUM CHLORIDE 1,000 ML IV ONE (13:07)
--- NOTE | 2022-04-03 13:12 | Emergency Department Note ---
HPI General Chief complaint: Altered Mental Status Stated complaint: altered Time Seen by Provider: 04/03/22 12:11 Source: patient Mode of arrival: EMS Limitations: no limitations History of Present Illness HPI Narrative: Narrative: This is a 82-year-old male presents emergency department with concerns of weakness abdominal pain and GI bleed and chest pain.. He takes warfarin for atrial fibrillation and he does have a pacemaker as well he reports that he has been having black stools that are becoming more frequent over the last month. He has a history of colon and mets to his liver with resection. He reports that he has been having abdominal pain as well and mostly its in his epigastrium. He denies history of a gastric ulcers. He cannot describe the pain to me. He also reports that he has been having chest pain off and on for the last couple months or so. It is sometimes right-sided sometimes left-sided he cannot tell me if it associated with exertion. He denies shortness of breath, fever, headache, meningismus, cough, URI symptoms, dysuria urinary frequency or urgency. Related Data Home Medications Medication Instructions Recorded Confirmed cyanocobalamin (vitamin B-12) 1,000 mcg PO QMONTH 01/11/19 03/08/22 1,000 mcg capsule metoprolol succinate 100 mg 100 mg PO QAM 09/28/20 04/03/22 tablet,extended release 24 hr fluticasone propionate 50 1 spray intranasal QDAY 12/14/20 03/08/22 mcg/actuation nasal spray,suspension famotidine 20 mg tablet 20 mg PO QPM 11/20/21 04/03/22 potassium chloride 10 mEq 10 meq PO 04/03/22 tablet,extended release Previous Rx's Medication Instructions Recorded diphenoxylate-atropine 2.5 1 tab PO TID PRN diarrhea #90 tabs 06/04/21 mg-0.025 mg tablet (Lomotil) omeprazole magnesium 20 mg 20 mg PO QDAY #90 tabs 06/04/21 tablet,delayed release (Prilosec OTC) tamsulosin 0.4 mg capsule 0.4 mg PO HS #90 caps 06/04/21 montelukast 10 mg tablet 10 mg PO HS #30 tabs 08/02/21 nitroglycerin 0.4 mg sublingual 0.4 mg sublingual Q5-15M PRN Chest 08/15/21 tablet Pain #25 tabs albuterol sulfate 90 mcg/actuation See Rx Instructions .Route 11/27/21 aerosol inhaler .COMPLEX ##18 amiodarone 200 mg tablet 200 mg PO BID #60 tabs 12/07/21 warfarin 3 mg tablet 1.5 mg PO DAILY #30 tabs 02/19/22 furosemide 20 mg tablet 20 mg PO QAM #30 tabs 03/12/22 lorazepam 2 mg tablet 2 mg PO TID PRN Anxiety 30 days 03/12/22 #90 tabs hydrocodone 7.5 mg-acetaminophen 1 - 2 tab PO Q4HP PRN Pain #120 03/29/22 325 mg tablet tabs Allergies Allergy/AdvReac Type Severity Reaction Status Date / Time Upfaccw-QMF-VxJ Reductase AdvReac Intermediate Muscle Pain Verified 04/03/22 20: 10 Inhibitor [Ltjtlws-Lug-Hlv Reductase Inhibitor] levofloxacin [From Levaquin] AdvReac Mild Itching Verified 04/03/22 20:10 oxycodone AdvReac Mild Itching Verified 04/03/22 20:10 Review of Systems ROS ROS Narrative: Narrative: All systems ED: reviewed and negative except as stated. [facility] Narrative Patient History Narrative: Narrative: Medical/Surgical/Family History All Active Problems (Updated 04/03/22 @ 21:34 by Chris Harley PA-C) Elevated INR (Acute) Acute GI bleeding (Acute) Acute hypokalemia (Acute) ANIYA (acute kidney injury) (Acute) Bilateral pleural effusion (Acute) Ascites (Acute) Supratherapeutic INR (Acute) GI bleed (Acute) Nausea (Acute) Abdominal pain (Acute) Thyroglossal cyst (Acute) Personal history of colon cancer (Acute) FDC (current) use of opiate analgesic (Chronic) Diarrhea following gastrointestinal surgery (Acute) Hypertension (Chronic) Arthritis of right hip (Chronic) Anticoagulant long-term use (Acute) Chronic atrial fibrillation (Chronic) Anemia (Chronic) Anxiety about health (Acute) Adenocarcinoma of descending colon (Acute) Acute anterior epistaxis (Acute) Generalized pruritus (Acute) Degenerative joint disease (DJD) of lumbar spine (Acute) H/O chemical exposure (Acute) Mite infestation (Acute) Medicare annual wellness visit, subsequent (Acute) Partial small bowel obstruction (Chronic ~07/2011) Hearing loss (Chronic) Adenocarcinoma of sigmoid colon (Chronic) Gout (Chronic) Sinus bradycardia (Chronic) Constipation (Chronic) Rosacea (Chronic) GERD (gastroesophageal reflux disease) (Chronic) Hyperlipidemia (Chronic) Chronic back pain (Chronic) Fatigue (Chronic) Right knee pain (Chronic) Allergic rhinitis (Chronic) History of Coumadin therapy (Chronic) Cardiac pacemaker in situ (Chronic) Allergic contact dermatitis due to other chemical products (Chronic) Herpes zoster (Chronic) Hemorrhoids (Chronic) Diverticulosis of colon without hemorrhage (Chronic) Benign neoplasm of transverse colon (Chronic) BPH without urinary obstruction (Chronic) Bilateral impacted cerumen (Chronic) Adenocarcinoma of sigmoid colon (Acute) Gout (Acute) Sinus bradycardia (Acute) Constipation (Acute) Diverticulosis (Acute) Rosacea (Acute) GERD (gastroesophageal reflux disease) (Acute) Hyperlipidemia (Acute) Tendonitis of shoulder, right (Acute) Cardiac pacemaker in situ (Acute) Herpes 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 (Acute) 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) Arthritis of right hip (Acute) Hemorrhoids (Acute) Diverticulosis of colon without hemorrhage (Acute) BPH NOS w/o ur obs/LUTS (Acute) Ecchymosis (Acute) Suspected condition not found (Acute) History of colon cancer (Chronic) 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) Coronary artery disease (Chronic) Chronic obstructive lung disease (Chronic) Medical History Adenocarcinoma of sigmoid colon Allergic contact dermatitis due to other chemical products Allergic rhinitis Anemia Arthritis of right hip Benign neoplasm of transverse colon Bilateral impacted cerumen BPH without urinary obstruction Cardiac pacemaker in situ Chronic atrial fibrillation Chronic back pain Chronic obstructive lung disease Colonoscopy causing post-procedural bleeding Constipation Coronary artery disease Diverticulosis of colon without hemorrhage Fatigue GERD (gastroesophageal reflux disease) Gout Hearing loss Hemorrhoids Herpes zoster History of colon cancer History of Coumadin therapy History of malignant neoplasm metastatic to liver Hyperlipidemia Hypertension FDC (current) use of opiate analgesic Partial small bowel obstruction (~07/2011) Right knee pain Rosacea Sinus bradycardia Surgical History History of back surgery lower lumbar x2 History of cataract extraction left eye 10/08/16, right eye 10/10/16 History of colectomy 09/29/2020-Subtotal colectomy with ileosigmoid anastomosis History of colonoscopy (09/08/20) 06/14/15 History of coronary artery bypass, five History of pacemaker insertion 2000 History of partial surgical removal of colon History of resection of liver partial hepatectomy Family History Mother , @ age 79yr old No problems noted. Father , @ age 71 yr old Prostate cancer Social History Smoking Status: Former smoker Alcohol Intake Frequency: former alcohol drinker Substance Use: does not use Exam Narrative Narrative: Narrative: General: Alert, in no acute distress Head: No trauma normocephalic Eyes: PERRLA, EOMs intact no scleral icterus or scleral injection Neck: Full range of motion, no midline tenderness ENT: Moist mucous membranes, uvula is midline. No sign of peritonsillar abscess or Emerald's angina. Cardiovascular: Regular rate and rhythm no murmur Respiratory: Clear to auscultation bilaterally. No rhonchi rales or wheezes, no respiratory distress Abdomen pelvis: Abdomen is soft, there is tenderness of the epigastrium and right upper quadrant. Negative Bella sign. There is no guarding no rebound tenderness. No tenderness over McBurney's point. Slightly distended. Patient has had multiple bowel movements at which are melanotic and heme positive patient does not have any pain with defecation. Neuro: Patient is alert and oriented x3 Psych: Normal affect, normal mood Skin: Warm, no rash, normal color General Limitations: no limitations Course Vital Signs Vital signs: Vital Signs Temperature 97.1 F 04/03/22 11:36 Pulse Rate 74 04/03/22 11:36 Respiratory Rate 17 04/03/22 11:36 Blood Pressure 118/76 04/03/22 11:36 Pulse Oximetry (%) 94 04/03/22 11:36 Oxygen Delivery Method 04/03/22 11:36 Temperature 97.4 F 04/03/22 22:35 Pulse Rate 62 04/03/22 22:02 Respiratory Rate 28 H 04/03/22 22:35 Blood Pressure 96/84 04/03/22 22:35 Pulse Oximetry (%) 96 04/03/22 22:37 Oxygen Delivery Method 04/03/22 22:37 Oxygen Flow Rate (L/min) 1 04/03/22 22:37 [facility] MDM Narrative Medical decision making narrative: Narrative: Differential diagnosis: Includes upper GI bleed, perforation, acute cholecystitis, gastritis, acute coronary syndrome, PE, pneumonia, esophageal bleeding varices. Review of prior external records: [] Independant Historians: Patient was able to give all of his own history My EKG interpretation: ECG shows atrial paced complexes at a rate of 67 beats minute, there is left axis deviation, narrow QRS normal QTC. There is no signs of Brugada, Yegwe-Ppsdzlzpa-Lynfe or HOCM. No ST segment deviations or hyperacute T waves and there is diffuse T wave flattening in all leads except V2. My interpretation is atrial paced complexes without signs of ischemia Imaging interpretation: CT the abdomen pelvis without contrast, chest x-ray Independent lab ordered and reviewed by me: CBC initial hemoglobin was 11 point 7 repeat 4 hours later was 10.9 [id number] CHEM 8 BUN is 49 creatinine 2.4 previous creatinine was 0.9 on 03/08/2022 Hepatic panel shows mildly elevated liver enzymes Lipase 92 Magnesium normal INR 14.5 APTT elevated Troponin within normal range I spoke with Dr. Oneill on the phone and he agreed that this GI bleed was most likely caused by spontaneous bleeding caused by the elevated INR at 14.5. He recommended giving 5 of vitamin K and a unit of fresh frozen plasma. He said that he would not need to see the patient and that this should be able to be admitted to the hospitalist. Patient will also need to be admitted for an ANIYA as well. For his ANIYA I have given 1 L of normal saline so far. He is remained hemodynamically stable while here in the emergency department. Although he has been having more frequent melanotic bowel movements here in the emergency department. I have ordered a repeat H&H which the hemoglobin at 1338 was 11.7 and at 1700 it was 10.9 there was a repeat chemistry panel as well that showed the patient now has hypokalemia at 2.5 initially was normal. I spoke with the hospitalist who agreed admit the patient for further evaluation and treatment. On repeat chemistry the patient did have a decrease in their potassium from 3.7-2.5. Lab Data Result diagrams: 04/03/22 20:45 04/03/22 20:45 Labs: Lab Results 04/03/22 04/03/22 04/03/22 Range/Units 11:55 13:38 13:38 WBC 9.5 (4.5-11.0) K/mcL RBC 3.87 L (4.63-6.08) M/mcL Hgb 11.7 L (13.7-17.5) g/dL Hct 35.0 L (40.1-51.0) % POC Hct 37.0 L (41-55) MCV 90.4 (80.0-100.0) fL MCH 30.2 (26.0-34.0) pg MCHC 33.4 (31.0-36.0) g/dL RDW 17.5 H (11.5-14.5) % Plt Count 140 (140-440) K/mcL MPV 12.1 (8.8-12.5) fL Immature Gran % (Auto) 0.3 (0.0-0.5) % Neut % (Auto) 75.2 (38.0-78.0) % Lymph % (Auto) 10.4 L (15.5-49.0) % [place] % (Auto) 13.9 H (1.0-12.0) % Eos % (Auto) 0 (0.0-7.0) % Baso % (Auto) 0.2 (0.0-2.0) % Lymph # (Auto) 0.99 L (1.50-4.80) K/mcL [place] # (Auto) 1.32 H (0.10-0.90) K/mcL Eos # (Auto) 0 (0.00-0.70) K/mcL Baso # (Auto) 0.02 (0.00-0.30) K/mcL Immature Gran # 0.03 (0.00-0.05) K/mcl Absolute Neutrophils 7.16 (1.80-8.00) K/mcL PT (11.9-14.5) sec INR (0.9-1.1) APTT (20.0-37.0) sec POC Sodium 134 (133-145) POC Potassium 3.7 (3.3-5.1) POC Chloride 96 (96-108) POC Total CO2 31.0 H (22-30) POC BUN 49 H (6-20) POC Creatinine 2.4 H (0.6-1.2) POC Glucose 107 H (70-105) POC WB Ioniz Calcium 0.92 L (1.16-1.32) Magnesium 2.1 (1.6-2.5) mg/dL Total Bilirubin 2.4 H (0.1-1.0) mg/dL Direct Bilirubin 1.1 H (<0.3) mg/dL AST 234 H (<40) U/L ALT 100 H (<40) U/L Alkaline Phosphatase 319 H (39-117) U/L Total Protein 6.2 (5.9-8.4) gm/dL Albumin 2.5 L (3.2-5.2) gm/dL Globulin 3.7 (2.2-3.7) gm/dL Lipase 92 H (7-60) U/L POC Troponin I (0.00-0.08) 04/03/22 04/03/22 04/03/22 Range/Units 13:38 13:44 17:00 WBC 9.3 (4.5-11.0) K/mcL RBC 3.56 L (4.63-6.08) M/mcL Hgb 10.9 L (13.7-17.5) g/dL Hct 32.3 L (40.1-51.0) % POC Hct (41-55) MCV 90.7 (80.0-100.0) fL MCH 30.6 (26.0-34.0) pg MCHC 33.7 (31.0-36.0) g/dL RDW 17.4 H (11.5-14.5) % Plt Count 132 L (140-440) K/mcL MPV 12.1 (8.8-12.5) fL Immature Gran % (Auto) 0.3 (0.0-0.5) % Neut % (Auto) 68.1 (38.0-78.0) % Lymph % (Auto) 13.6 L (15.5-49.0) % [place] % (Auto) 17.7 H (1.0-12.0) % Eos % (Auto) 0.1 (0.0-7.0) % Baso % (Auto) 0.2 (0.0-2.0) % Lymph # (Auto) 1.27 L (1.50-4.80) K/mcL [place] # (Auto) 1.65 H (0.10-0.90) K/mcL Eos # (Auto) 0.01 (0.00-0.70) K/mcL Baso # (Auto) 0.02 (0.00-0.30) K/mcL Immature Gran # 0.03 (0.00-0.05) K/mcl Absolute Neutrophils 6.35 (1.80-8.00) K/mcL PT 111.8 H (11.9-14.5) sec INR 14.5 H* (0.9-1.1) APTT 84.7 H (20.0-37.0) sec POC Sodium (133-145) POC Potassium (3.3-5.1) POC Chloride (96-108) POC Total CO2 (22-30) POC BUN (6-20) POC Creatinine (0.6-1.2) POC Glucose (70-105) POC WB Ioniz Calcium (1.16-1.32) Magnesium (1.6-2.5) mg/dL Total Bilirubin (0.1-1.0) mg/dL Direct Bilirubin (<0.3) mg/dL AST (<40) U/L ALT (<40) U/L Alkaline Phosphatase (39-117) U/L Total Protein (5.9-8.4) gm/dL Albumin (3.2-5.2) gm/dL Globulin (2.2-3.7) gm/dL Lipase (7-60) U/L POC Troponin I 0.03 (0.00-0.08) 04/03/22 Range/Units 17:05 WBC (4.5-11.0) K/mcL RBC (4.63-6.08) M/mcL Hgb (13.7-17.5) g/dL Hct (40.1-51.0) % POC Hct 36.0 L (41-55) MCV (80.0-100.0) fL MCH (26.0-34.0) pg MCHC (31.0-36.0) g/dL RDW (11.5-14.5) % Plt Count (140-440) K/mcL MPV (8.8-12.5) fL Immature Gran % (Auto) (0.0-0.5) % Neut % (Auto) (38.0-78.0) % Lymph % (Auto) (15.5-49.0) % [place] % (Auto) (1.0-12.0) % Eos % (Auto) (0.0-7.0) % Baso % (Auto) (0.0-2.0) % Lymph # (Auto) (1.50-4.80) K/mcL [place] # (Auto) (0.10-0.90) K/mcL Eos # (Auto) (0.00-0.70) K/mcL Baso # (Auto) (0.00-0.30) K/mcL Immature Gran # (0.00-0.05) K/mcl Absolute Neutrophils (1.80-8.00) K/mcL PT (11.9-14.5) sec INR (0.9-1.1) APTT (20.0-37.0) sec POC Sodium 137 (133-145) POC Potassium 2.5 L* (3.3-5.1) POC Chloride 97 (96-108) POC Total CO2 28.0 (22-30) POC BUN 36 H (6-20) POC Creatinine 2.4 H (0.6-1.2) POC Glucose 106 H (70-105) POC WB Ioniz Calcium 0.96 L (1.16-1.32) Magnesium (1.6-2.5) mg/dL Total Bilirubin (0.1-1.0) mg/dL Direct Bilirubin (<0.3) mg/dL AST (<40) U/L ALT (<40) U/L Alkaline Phosphatase (39-117) U/L Total Protein (5.9-8.4) gm/dL Albumin (3.2-5.2) gm/dL Globulin (2.2-3.7) gm/dL Lipase (7-60) U/L POC Troponin I (0.00-0.08) Discharge Plan Patient/Caregiver Discharge Instructions Pt seen by INSIDE SALES MANAGER/PA only: Yes Clinical Impression: Elevated INR, Acute GI bleeding, Acute hypokalemia, ANIYA (acute kidney injury) Activity: increase activity as tolerated Patient Disposition: Xfer As Inpt ([facility]) Discharge Date/Time: 04/03/22 19:47
--- NOTE | 2022-04-03 14:31 | XRay Report ---
HISTORY: Chest pain FINDINGS: There is a moderate size patchy alveolar infiltrate in the lower half of the left lung. Subtle increased interstitial lung markings are seen in the right lung base. Heart size is normal. There is a pacemaker. No congestive heart failure is present. There has been prior coronary bypass surgery. Comparison with the prior x-ray from 03/08/22 shows the left lower lobe infiltrate is new. IMPRESSION: Moderate left lower lobe infiltrate which may be pneumonia. Interpreted and Authenticated by: Varghese Rocha 04/03/22
--- NOTE | 2022-04-03 14:36 | Cat Scan Report ---
History: Altered mental status, diarrhea, melena, right lower quadrant pain TECHNIQUE: Abdomen was imaged without contrast in axial plane at 2.5 mm intervals from above the diaphragm through the symphysis pubis. Sagittal and coronal reformats were created. The radiation exposure was limited using dose reduction technology. FINDINGS: There is a moderate size layering left-sided pleural effusion and a small right-sided layering pleural effusion. There are patchy alveolar infiltrates in the lingula and basilar segments left lower lobe. Smaller patchy infiltrate is seen in the right middle lobe and there is subtle interstitial lung disease in the periphery of the right lower lobe.1 There are postoperative changes in the liver following resection of the posterior aspect of the right lobe. The remaining liver has abnormal high attenuation. This may be associated with hemachromatosis. There is no evidence of cirrhosis. There is mild dilatation of the intra and extrahepatic bile ducts. The gallbladder is been removed. Moderate amount of ascites is present throughout the abdomen or pelvis. The spleen is normal in size and homogeneous. No abnormalities detected in the pancreas. The kidneys are normal without evidence of hydronephrosis, stone or inflammation. Scattered plaques are present along the wall of the aorta and iliac arteries. Large and small intestine are normal in caliber. There are couple small air-fluid levels. There are several diverticula in the sigmoid colon but without evidence of acute diverticulitis. No abscess or mass are detected in the abdomen or pelvis. There is degenerative disc disease and arthritis throughout the lumbar spine with moderately severe spinal canal stenosis at L3-4 and L4-5. Comparison with the prior CT done on 08/29/20 shows the pleural effusions and ascites are new. Contour of the liver is unchanged. IMPRESSION: Bilateral pleural effusions and moderate amount of ascites. Left lower lobe and lingular infiltrates which may be pneumonia. No evidence of an abscess or neoplasm Source of the dark stool is not identified. Interpreted and Authenticated by: Varghese Rocha 04/03/22
[2022-04-03 15:01] LABS: Basophils # (Auto) 0.02 K/mcL (0.00-0.30); Basophils % (Auto) 0.2 % (0.0-2.0); Eosinophils # (Auto) 0 K/mcL (0.00-0.70); Eosinophils % (Auto) 0 % (0.0-7.0); Hemoglobin 11.7 g/dL (13.7-17.5); Lymphocytes # (Auto) 0.99 K/mcL (1.50-4.80); Lymphocytes % (Auto) 10.4 % (15.5-49.0); Mean Cell Volume 90.4 fL (80.0-100.0); Mean Corpuscular HGB Conc 33.4 g/dL (31.0-36.0); Mean Platelet Volume 12.1 fL (8.8-12.5); Monocytes # (Auto) 1.32 K/mcL (0.10-0.90); Monocytes % (Auto) 13.9 % (1.0-12.0); Neutrophils % (Auto) 75.2 % (38.0-78.0); Platelet Count 140 K/mcL (140-440); RBC 3.87 M/mcL (4.63-6.08); Red Cell Distribution Width 17.5 % (11.5-14.5); WBC 9.5 K/mcL (4.5-11.0)
[2022-04-03 15:07] LABS: Partial Thromboplastin Time 84.7 sec (20.0-37.0)
[2022-04-03 15:08] LABS: ALT/SGPT 100 U/L (<40); AST/SGOT 234 U/L (<40); Albumin 2.5 gm/dL (3.2-5.2); Alkaline Phosphatase 319 U/L (39-117); Bilirubin,Direct 1.1 mg/dL (<0.3); Bilirubin,Total 2.4 mg/dL (0.1-1.0); Globulin 3.7 gm/dL (2.2-3.7)
[2022-04-03 15:19] LABS: INR 14.5 (0.9-1.1); Prothrombin Time 111.8 sec (11.9-14.5)
--- NOTE | 2022-04-03 16:13 | EKG ---
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 Measurements Intervals [place] Rate: 67 P: ND: 230 QRS: 97 QRSD: 131 T: -42 QT: 436 QTc: 462 Interpretive Statements Atrial-paced complexes Prolonged ND interval Nonspecific intraventricular conduction delay Electronically Signed On 04-03-2022 16:12:50 PST by Yesi Cr D.O. /store/M0/[id number]
[2022-04-03] MEDS ORDERED: PHYTONADIONE 5 MG in 0.9 % SODIUM CHLORIDE 50 ML IV ONE (16:31)
[2022-04-03] MEDS ORDERED: 0.9 % SODIUM CHLORIDE 250 ML IV SCH ×2 (16:45→19:54)
[2022-04-03 17:08] LABS: POC Calcium, Ionized 0.96 (1.16-1.32); POC Creatinine 2.4 (0.6-1.2); POC Potassium 2.5 (3.3-5.1)
[2022-04-03 17:38] LABS: Basophils # (Auto) 0.02 K/mcL (0.00-0.30); Basophils % (Auto) 0.2 % (0.0-2.0); Eosinophils # (Auto) 0.01 K/mcL (0.00-0.70); Eosinophils % (Auto) 0.1 % (0.0-7.0); Hematocrit 32.3 % (40.1-51.0); Hemoglobin 10.9 g/dL (13.7-17.5); Lymphocytes # (Auto) 1.27 K/mcL (1.50-4.80); Lymphocytes % (Auto) 13.6 % (15.5-49.0); Mean Cell Volume 90.7 fL (80.0-100.0); Mean Corpuscular HGB Conc 33.7 g/dL (31.0-36.0); Mean Platelet Volume 12.1 fL (8.8-12.5); Monocytes # (Auto) 1.65 K/mcL (0.10-0.90); Monocytes % (Auto) 17.7 % (1.0-12.0); Neutrophils % (Auto) 68.1 % (38.0-78.0); Platelet Count 132 K/mcL (140-440); RBC 3.56 M/mcL (4.63-6.08); Red Cell Distribution Width 17.4 % (11.5-14.5); WBC 9.3 K/mcL (4.5-11.0)
--- NOTE | 2022-04-03 18:14 | Internal Med History&Physical ---
HPI History of Present Illness Patient information: Note initiated : 04/03/22 at 6:05 pm Service Date, if different from initiated Date: [] Patient: Dakota Mejia 82 y/o M admitted on for altered. Chief Complaint: [Fatigue, SOB] Chief complaint: Melena History of present illness: Mr. 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 The patient overall is hard of hearing, and is generally a poor historian. There is no family present at the bedside. He states that he lives alone. He does have a grandson in town locally. The patient is unaware that he had to have his INR checked frequently. He is been complaining of inappetence and abdominal swelling. He is also noted dark tarry stool. On arrival he was hemodynamically stable and afebrile. He was found to have an INR of 14.5. CBC revealed an H&H of 10.9/32.3 and a platelet count of 132. He was also found to have a potassium of 2.5, creatinine of 2.4, and transaminitis with an AST of 232, ALT of 100, and alkaline phosphatase of 319. The patient's albumin is 2.5. CT abdomen pelvis revealed bilateral pleural effusions and moderate ascites. Large and small intestine were normal in caliber. He was noted to have sigmoid diverticuli however there was no mass noted. The hospitalist service was asked admit the patient for suspected GI bleed in the setting of supratherapeutic INR. Oncology hx per Dr. Flor Vuong: 1 year follow up/ adenocarcinoma colon 81-year-old male who is status post subtotal colectomy for adenocarcinoma. He had excision in 1984 and in September 2020. He did have partial liver resection in 1994 for metastatic lesions. He had recurrent lesions in 2019 which will consisted initially of a very large polyp in the transverse colon. This was resected. And 2020 he had follow-up colonoscopy and had invasive moderately differentiated carcinoma with high-grade dysplasia arising in a tubular adenoma. Subtotal colectomy was performed in September 2020 with final pathology of invasive moderately differentiated adenocarcinoma. Patient returns at this time for follow-up colonoscopy. He is also having a suture protrude intermittently to his anus which is the Prolene suture from his anastomosis he is advised that the sutures will be removed at the time of his follow-up colonoscopy Review of Systems All systems: reviewed and no additional remarkable complaints except as stated Constitutional Constitutional: Present as per HPI EENT Eyes: Present as per HPI; Absent blurry vision Cardiovascular Cardiovascular: Present as per HPI; Absent chest pain, dyspnea, dyspnea on exertion, leg edema or palpatations Respiratory Respiratory: Present as per HPI; Absent cough, dyspnea, dyspnea on exertion, wheezing or stridor Gastrointestinal Gastrointestinal: Present as per HPI; Absent abdominal pain, diarrhea, dysphagia, hematemesis, melena, nausea or vomiting Musculoskeletal Musculoskeletal: Present as per HPI; Absent joint swelling, limited range of motion, muscle cramps, muscle weakness or myalgias Integumentary Integumentary: Present as per HPI; Absent erythema, new lesions, rash or wounds Neurological Neurological: Present as per HPI; Absent abnormal gait, behavioral changes, focal weakness, headache(s), loss of vision, numbness, sensory deficit or syncope Endocrine Endocrine: Absent change in body appearance, fatigue or heat intolerance Hematologic/Lymphatic Hematologic/Lymphatic: Present as per HPI PFSH PFSH All Active Problems (Updated 04/03/22 @ 18:12 by Kirsty Talley MD) Bilateral pleural effusion (Acute) Ascites (Acute) Supratherapeutic INR (Acute) GI bleed (Acute) Nausea (Acute) Abdominal pain (Acute) Thyroglossal cyst (Acute) Personal history of colon cancer (Acute) FDC (current) use of opiate analgesic (Chronic) Diarrhea following gastrointestinal surgery (Acute) Hypertension (Chronic) Arthritis of right hip (Chronic) Anticoagulant long-term use (Acute) Chronic atrial fibrillation (Chronic) Anemia (Chronic) Anxiety about health (Acute) Adenocarcinoma of descending colon (Acute) Acute anterior epistaxis (Acute) Generalized pruritus (Acute) Degenerative joint disease (DJD) of lumbar spine (Acute) H/O chemical exposure (Acute) Mite infestation (Acute) Medicare annual wellness visit, subsequent (Acute) Partial small bowel obstruction (Chronic ~07/2011) Hearing loss (Chronic) Adenocarcinoma of sigmoid colon (Chronic) Gout (Chronic) Sinus bradycardia (Chronic) Constipation (Chronic) Rosacea (Chronic) GERD (gastroesophageal reflux disease) (Chronic) Hyperlipidemia (Chronic) Chronic back pain (Chronic) Fatigue (Chronic) Right knee pain (Chronic) Allergic rhinitis (Chronic) History of Coumadin therapy (Chronic) Cardiac pacemaker in situ (Chronic) Allergic contact dermatitis due to other chemical products (Chronic) Herpes zoster (Chronic) Hemorrhoids (Chronic) Diverticulosis of colon without hemorrhage (Chronic) Benign neoplasm of transverse colon (Chronic) BPH without urinary obstruction (Chronic) Bilateral impacted cerumen (Chronic) Adenocarcinoma of sigmoid colon (Acute) Gout (Acute) Sinus bradycardia (Acute) Constipation (Acute) Diverticulosis (Acute) Rosacea (Acute) GERD (gastroesophageal reflux disease) (Acute) Hyperlipidemia (Acute) Tendonitis of shoulder, right (Acute) Cardiac pacemaker in situ (Acute) Herpes zoster (Acute) 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 (Acute) Arthritis of right hip (Acute) Hemorrhoids (Acute) Diverticulosis of colon without hemorrhage (Acute) BPH NOS w/o ur obs/LUTS (Acute) Ecchymosis (Acute) Suspected condition not found (Acute) History of colon cancer (Chronic) 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) Coronary artery disease (Chronic) Chronic obstructive lung disease (Chronic) Medical History Adenocarcinoma of sigmoid colon Allergic contact dermatitis due to other chemical products Allergic rhinitis Anemia Arthritis of right hip Benign neoplasm of transverse colon Bilateral impacted cerumen BPH without urinary obstruction Cardiac pacemaker in situ Chronic atrial fibrillation Chronic back pain Chronic obstructive lung disease Colonoscopy causing post-procedural bleeding Constipation Coronary artery disease Diverticulosis of colon without hemorrhage Fatigue GERD (gastroesophageal reflux disease) Gout Hearing loss Hemorrhoids Herpes zoster History of colon cancer History of Coumadin therapy History of malignant neoplasm metastatic to liver Hyperlipidemia Hypertension 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 Father , @ age 71 yr old Prostate cancer Social History marital status: occupational status: retired smoking status: Former smoker smoking status stop date: 03/24/74 alcohol intake frequency: former alcohol drinker substance use type: does not use additional history: Twin sister in [place], Brother Theo-is his transport on occasion 4 daughters alive & well MEDS/ALLERGIES Home Medications and Allergies Home Medications Medication Instructions Recorded Confirmed Type cyanocobalamin (vitamin B-12) 1,000 mcg PO QMONTH 01/11/19 03/08/22 History 1,000 mcg capsule metoprolol succinate 100 mg 100 mg PO QAM 09/28/20 03/08/22 History tablet,extended release 24 hr rosuvastatin 40 mg tablet 40 mg PO QPM 09/28/20 03/08/22 History calcium 0.5 tab PO QHS 12/14/20 03/08/22 History mea-oil-P4-Oe-oiyust-Lj-boron 250 mg-40 mg-125 unit tablet (Citracal-D3 Plus Magnesium) fluticasone propionate 50 1 spray intranasal QDAY 12/14/20 03/08/22 History mcg/actuation nasal spray,suspension diphenoxylate-atropine 2.5 1 tab PO TID PRN diarrhea #90 tabs 06/04/21 03/08/22 Rx mg-0.025 mg tablet (Lomotil) omeprazole magnesium 20 mg 20 mg PO QDAY #90 tabs 06/04/21 03/08/22 Rx tablet,delayed release (Prilosec OTC) tamsulosin 0.4 mg capsule 0.4 mg PO HS #90 caps 06/04/21 03/08/22 Rx montelukast 10 mg tablet 10 mg PO HS #30 tabs 08/02/21 03/08/22 Rx nitroglycerin 0.4 mg sublingual 0.4 mg sublingual Q5-15M PRN Chest 08/15/21 03/08/22 Rx tablet Pain #25 tabs Caltrate Bone Health 300 mg PO DAILY 11/20/21 03/08/22 History famotidine 20 mg tablet 20 mg PO QPM 11/20/21 03/08/22 History albuterol sulfate 90 mcg/actuation See Rx Instructions .Route 11/27/21 03/08/22 Rx aerosol inhaler .COMPLEX ##18 amiodarone 200 mg tablet 200 mg PO BID #60 tabs 12/07/21 03/08/22 Rx warfarin 3 mg tablet 1.5 mg PO DAILY #30 tabs 02/19/22 03/08/22 Rx furosemide 20 mg tablet 20 mg PO QAM #30 tabs 03/12/22 Rx lorazepam 2 mg tablet 2 mg PO TID PRN Anxiety 30 days 03/12/22 Rx #90 tabs hydrocodone 7.5 mg-acetaminophen 1 - 2 tab PO Q4HP PRN Pain #120 03/29/22 Rx 325 mg tablet tabs Allergies Allergy/AdvReac Type Severity Reaction Status Date / Time Roitwic-NXC-[id number] Reductase AdvReac Intermediate Muscle Pain Verified 04/03/22 11:35 Inhibitor [Gkdfrya-Zno-Iif Reductase Inhibitor] levofloxacin [From Levaquin] AdvReac Mild Itching Verified 04/03/22 11:35 oxycodone AdvReac Mild Itching Verified 04/03/22 11:35 EXAM Constitutional Vitals: Temp Pulse Resp BP Pulse Ox O2 Del Method 97.1 F 67 22 138/57 97 04/03/22 11:36 04/03/22 18:00 04/03/22 18:00 04/03/22 18:00 04/03/22 18:00 04/03/22 11:36 General appearance: average body habitus Head Head exam: Present atraumatic, normal inspection and normocephalic Eye Eye exam: Present EOMI, normal appearance and PERRL; Absent conjunctival injection ENT ENT exam: Present normal exam; Absent mucous membranes dry Neck Neck exam: Present full ROM; Absent lymphadenopathy Respiratory Respiratory exam: Present normal respiratory exam and CTAB; Absent decreased breath sounds, respiratory distress or wheezes Cardiovascular Cardiovascular exam: Present normal rate and rhythm and RRR; Absent JVD GI/Abdominal GI/Abdominal exam: Present normal bowel sounds, soft, diminished bowel sounds, distended and guarding; Absent mass, rebound or tenderness Neurological Exam Neurological exam: Present alert, CN II-XII intact and oriented X3 Psychiatric Psychiatric exam: Present normal affect and normal mood Skin Skin exam: Present intact and warm; Absent erythema, pallor, petechiae or rash DATA Data Completed and Pending Labs: Labs from last 24 hours 04/03/22 04/03/22 04/03/22 17:05 17:00 17:00 WBC 9.3 RBC 3.56 L Hgb 10.9 L Hct 32.3 L POC Hct 36.0 L MCV 90.7 MCH 30.6 MCHC 33.7 RDW 17.4 H Plt Count 132 L MPV 12.1 Immature Gran % (Auto) 0.3 Neut % (Auto) 68.1 Lymph % (Auto) 13.6 L Lynn % (Auto) 17.7 H Eos % (Auto) 0.1 Baso % (Auto) 0.2 Lymph # (Auto) 1.27 L Lynn # (Auto) 1.65 H Eos # (Auto) 0.01 Baso # (Auto) 0.02 Immature Gran # 0.03 Absolute Neutrophils 6.35 PT INR APTT POC Sodium 137 POC Potassium 2.5 L* POC Chloride 97 POC Total CO2 28.0 POC BUN 36 H POC Creatinine 2.4 H POC Glucose 106 H POC WB Ioniz Calcium 0.96 L Magnesium Total Bilirubin Direct Bilirubin AST ALT Alkaline Phosphatase Total Protein Albumin Globulin Lipase Vitamin K Pending POC Troponin I 04/03/22 04/03/22 04/03/22 13:44 13:38 13:38 WBC RBC Hgb Hct POC Hct MCV MCH MCHC RDW Plt Count MPV Immature Gran % (Auto) Neut % (Auto) Lymph % (Auto) Lynn % (Auto) Eos % (Auto) Baso % (Auto) Lymph # (Auto) Lynn # (Auto) Eos # (Auto) Baso # (Auto) Immature Gran # Absolute Neutrophils PT 111.8 H INR 14.5 H* APTT 84.7 H POC Sodium POC Potassium POC Chloride POC Total CO2 POC BUN POC Creatinine POC Glucose POC WB Ioniz Calcium Magnesium 2.1 Total Bilirubin 2.4 H Direct Bilirubin 1.1 H AST 234 H ALT 100 H Alkaline Phosphatase 319 H Total Protein 6.2 Albumin 2.5 L Globulin 3.7 Lipase 92 H Vitamin K POC Troponin I 0.03 04/03/22 04/03/22 13:38 11:55 WBC 9.5 RBC 3.87 L Hgb 11.7 L Hct 35.0 L POC Hct 37.0 L MCV 90.4 MCH 30.2 MCHC 33.4 RDW 17.5 H Plt Count 140 MPV 12.1 Immature Gran % (Auto) 0.3 Neut % (Auto) 75.2 Lymph % (Auto) 10.4 L Lynn % (Auto) 13.9 H Eos % (Auto) 0 Baso % (Auto) 0.2 Lymph # (Auto) 0.99 L Lynn # (Auto) 1.32 H Eos # (Auto) 0 Baso # (Auto) 0.02 Immature Gran # 0.03 Absolute Neutrophils 7.16 PT INR APTT POC Sodium 134 POC Potassium 3.7 POC Chloride 96 POC Total CO2 31.0 H POC BUN 49 H POC Creatinine 2.4 H POC Glucose 107 H POC WB Ioniz Calcium 0.92 L Magnesium Total Bilirubin Direct Bilirubin AST ALT Alkaline Phosphatase Total Protein Albumin Globulin Lipase Vitamin K POC Troponin I A/P Assessment and plan (1) GI bleed: Status: Acute (2) Supratherapeutic INR: Status: Acute (3) Anticoagulant long-term use: Status: Acute (4) Chronic atrial fibrillation: Status: Chronic (5) Ascites: Status: Acute (6) Bilateral pleural effusion: Status: Acute Narrative A/P Narrative: The patient presents with melanotic stool. Imaging was concerning for sigmoid diverticuli. He did have a recent colonoscopy in November 2021. We will consult GI for consideration of upper endoscopy. The patient will be started on Protonix 40 mg IV twice daily. His H&H is stable but we will have to reverse his coagulopathy. He was given vitamin K 5 mg p.o. x1 and 1 unit of FFP in the ER. In the setting of hypotension and suspected active GI bleed, we will also transfuse 1 unit of packed red blood cells. He was noted to have an ANIYA and will monitor serial BMP. We will hold his home cardiac medications including amiodarone, metoprolol, and Coumadin. The patient has a history of colon cancer and now has new bilateral pleural effusions and ascites. We will consult general surgery for thoracentesis and paracentesis to send for cytology. 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 It would be helpful to discuss goals of care and refer the patient to palliative care. Time Spent With Patient Time: Total time spent is greater than 50% in coordination of care (as documented) at patient's floor/unit and/or counseling patient: Initial: Total time with patient: 75 - 90 minutes
[2022-04-03] MEDS ORDERED: ACETAMINOPHEN 325 MG TABLET PO PRN (19:54)
[2022-04-03] MEDS ORDERED: ONDANSETRON 4 MG/2 ML VIAL IV PRN (19:54)
[2022-04-03] MEDS ORDERED: HYDROCODONE/APAP 7.5/325MG TABLET PO ONE (20:34)
[2022-04-03] MEDS: HYDROCODONE/APAP 7.5/325MG TABLET PO PRN (20:35)
[2022-04-03 21:37] LABS: Hematocrit 30.9 % (40.1-51.0); Hemoglobin 10.3 g/dL (13.7-17.5)
[2022-04-03] MEDS: 0.9 % SODIUM CHLORIDE 10 ML SYRINGE IV SCH (22:00)
[2022-04-03 23:36] LABS: Blood Urea Nitrogen 37 mg/dL (8-23); Calcium 7.2 mg/dL (8.6-10.4); Carbon Dioxide 29 mmol/L (22-30); Chloride 99 mmol/L (96-108); Glomerular Filtration Rate 28; Glucose 103 mg/dL (70-105)
[2022-04-04] MEDS ORDERED: DIGOXIN 500 MCG/2 ML AMPUL IV ONE (01:37)
[2022-04-04 03:18] LABS: Hematocrit 30.4 % (40.1-51.0); Hemoglobin 10.3 g/dL (13.7-17.5)
[2022-04-04] MEDS: 0.9 % SODIUM CHLORIDE 10 ML SYRINGE IV SCH ×3 (05:31→21:54)
[2022-04-04 06:07] LABS: Iron 53 ug/dL (61-157); TIBC Calculation 163 ug/dl (228-428); Transferrin % Saturation 33 % (20-50)
[2022-04-04 06:18] LABS: Ferritin 289.3 ng/mL (30.0-400.0)
[2022-04-04] MEDS: PANTOPRAZOLE 40 MG VIAL IV SCH ×2 (08:06→17:31)
[2022-04-04 09:09] LABS: ALT/SGPT 87 U/L (<40); AST/SGOT 196 U/L (<40); Albumin 2.2 gm/dL (3.2-5.2); Albumin/Globulin Ratio 0.7 (1.0-2.3); Alkaline Phosphatase 260 U/L (39-117); Bilirubin,Total 2.3 mg/dL (0.1-1.0); Blood Urea Nitrogen 36 mg/dL (8-23); Calcium 7.3 mg/dL (8.6-10.4); Carbon Dioxide 27 mmol/L (22-30); Chloride 99 mmol/L (96-108); Globulin 3.2 gm/dL (2.2-3.7); Glomerular Filtration Rate 27; Glucose 95 mg/dL (70-105)
[2022-04-04] MEDS ORDERED: 0.9 % SODIUM CHLORIDE 250 ML IV SCH (10:15)
[2022-04-04 11:09] LABS: Basophils # (Auto) 0.01 K/mcL (0.00-0.30); Basophils % (Auto) 0.1 % (0.0-2.0); Eosinophils # (Auto) 0.01 K/mcL (0.00-0.70); Eosinophils % (Auto) 0.1 % (0.0-7.0); Hemoglobin 11.2 g/dL (13.7-17.5); Lymphocytes % (Auto) 12.7 % (15.5-49.0); Mean Cell Volume 90.4 fL (80.0-100.0); Mean Corpuscular HGB Conc 32.9 g/dL (31.0-36.0); Mean Platelet Volume 12.9 fL (8.8-12.5); Monocytes # (Auto) 0.87 K/mcL (0.10-0.90); Monocytes % (Auto) 12.3 % (1.0-12.0); Neutrophils % (Auto) 74.4 % (38.0-78.0); Platelet Count 103 K/mcL (140-440); RBC 3.76 M/mcL (4.63-6.08); Red Cell Distribution Width 17.4 % (11.5-14.5); WBC 7.1 K/mcL (4.5-11.0)
[2022-04-04] MEDS ORDERED: POTASSIUM CHLORIDE 20 MEQ TABLET PO ONE (11:22)
--- NOTE | 2022-04-04 13:04 | Internal Med Progress Note ---
SUBJECTIVE Subjective Patient information: Note initiated : 04/04/22 at 1:02 pm Service Date, if different from initiated Date: [] Patient: Dakota Mejia 82 y/o M admitted on 04/03/22 for altered. Chief Complaint: [Melena] Principal diagnosis: GIB, supratherapeutic INR Interval history: The patient was resting comfortably in bed. He denies abdominal pain, nausea or vomiting. He has little to no insight of his condition. He was asking if he would be able to discharge home today. Discussed the case with GI. Constitutional Vitals: Vital Signs Temp Pulse Resp BP Pulse Ox O2 Del Method O2 Flow Rate 98.6 F 76 18 121/57 93 1 04/04/22 12:01 04/04/22 12:27 04/04/22 12:27 04/04/22 12:01 04/04/22 12:27 04/04/22 12:27 04/04/22 00:30 Period Temp Pulse Resp BP Sys/Yo Pulse Ox O2 Del Method O2 Flow Rate Last 24 Hr 97.1 F-99.7 F 58-84 15-28 80-138/40-92 90-100 Nasal Cannula- Room Air 1-2 Intake and Output 04/04/22 04/04/22 04/04/22 03:59 11:59 19:59 Intake Total 409 0 Output Total 400 0 400 Balance 9 0 -400 Weight 92.896 kg Intake & Output: Intake & Output 04/04/22 04/04/22 04/04/22 03:59 11:59 19:59 Intake Total 409 0 Output Total 400 0 400 Balance 9 0 -400 Weight 92.896 kg Intake: IV 38 Sodium Chloride 0.9% 250 ml @ 38 20 mls/hr IV .[id number] [facility] Rx#: [id number] Oral 30 0 Tube Feeding 0 Blood Product 341 Output: Void Amount 0 0 400 Urine/Stool Mix 400 Other: Urine Appearance Clear Urine Color Dark Yellow Stool Size Small Moderate Stool Color Black Green Black Stool Consistency Soft Formed Liquid # Bowel Movements 1 Head Head exam: Present atraumatic and normal inspection Eye Eye exam: Present normal appearance ENT ENT exam: Present mucous membranes moist, normal exam and normal external ear exam Neck Neck exam: Present normal inspection Respiratory Respiratory exam: Present normal respiratory exam Cardiovascular Cardiovascular exam: Present normal rate and rhythm GI/Abdominal GI/Abdominal exam: Present normal bowel sounds Back Exam Back exam: Present normal inspection Neurological Exam Neurological exam: Present alert Skin Skin exam: Present intact and warm OBJ DATA Labs CBC & Chem 7: 04/04/22 08:04 04/04/22 08:03 Labs: Abnormal Lab Results 04/04/22 04/04/22 04/04/22 08:04 08:03 05:17 RBC 3.76 L Hgb 11.2 L Hct 34.0 L POC Hct RDW 17.4 H Plt Count 103 L MPV 12.9 H Lymph % (Auto) 12.7 L Colbert % (Auto) 12.3 H Lymph # (Auto) 0.90 L Colbert # (Auto) PT INR APTT POC Potassium Potassium 2.6 L* POC Total CO2 Anion Gap POC BUN BUN 36 H Creatinine 2.2 H POC Creatinine POC Glucose Calcium 7.3 L POC WB Ioniz Calcium Iron 53 L TIBC 163 L Unsat Iron Binding 110 L Total Bilirubin 2.3 H Direct Bilirubin AST 196 H ALT 87 H Alkaline Phosphatase 260 H Total Protein 5.4 L Albumin 2.2 L Albumin/Globulin Ratio 0.7 L Lipase 04/04/22 04/03/22 04/03/22 01:57 22:18 20:45 RBC Hgb 10.3 L 10.3 L Hct 30.4 L 30.9 L POC Hct RDW Plt Count MPV Lymph % (Auto) Colbert % (Auto) Lymph # (Auto) Colbert # (Auto) PT INR APTT POC Potassium Potassium 2.6 L* POC Total CO2 Anion Gap 6.0 L POC BUN BUN 37 H Creatinine 2.1 H POC Creatinine POC Glucose Calcium 7.2 L POC WB Ioniz Calcium Iron TIBC Unsat Iron Binding Total Bilirubin Direct Bilirubin AST ALT Alkaline Phosphatase Total Protein Albumin Albumin/Globulin Ratio Lipase 04/03/22 04/03/22 04/03/22 20:45 17:05 17:00 RBC 3.56 L Hgb 10.9 L Hct 32.3 L POC Hct 36.0 L RDW 17.4 H Plt Count 132 L MPV Lymph % (Auto) 13.6 L Colbert % (Auto) 17.7 H Lymph # (Auto) 1.27 L Colbert # (Auto) 1.65 H PT 32.0 H INR 3.0 H APTT POC Potassium 2.5 L* Potassium POC Total CO2 Anion Gap POC BUN 36 H BUN Creatinine POC Creatinine 2.4 H POC Glucose 106 H Calcium POC WB Ioniz Calcium 0.96 L Iron TIBC Unsat Iron Binding Total Bilirubin Direct Bilirubin AST ALT Alkaline Phosphatase Total Protein Albumin Albumin/Globulin Ratio Lipase 04/03/22 04/03/22 04/03/22 13:38 13:38 13:38 RBC 3.87 L Hgb 11.7 L Hct 35.0 L POC Hct RDW 17.5 H Plt Count MPV Lymph % (Auto) 10.4 L Colbert % (Auto) 13.9 H Lymph # (Auto) 0.99 L Colbert # (Auto) 1.32 H PT 111.8 H INR 14.5 H* APTT 84.7 H POC Potassium Potassium POC Total CO2 Anion Gap POC BUN BUN Creatinine POC Creatinine POC Glucose Calcium POC WB Ioniz Calcium Iron TIBC Unsat Iron Binding Total Bilirubin 2.4 H Direct Bilirubin 1.1 H AST 234 H ALT 100 H Alkaline Phosphatase 319 H Total Protein Albumin 2.5 L Albumin/Globulin Ratio Lipase 92 H 04/03/22 11:55 RBC Hgb Hct POC Hct 37.0 L RDW Plt Count MPV Lymph % (Auto) Colbert % (Auto) Lymph # (Auto) Colbert # (Auto) PT INR APTT POC Potassium Potassium POC Total CO2 31.0 H Anion Gap POC BUN 49 H BUN Creatinine POC Creatinine 2.4 H POC Glucose 107 H Calcium POC WB Ioniz Calcium 0.92 L Iron TIBC Unsat Iron Binding Total Bilirubin Direct Bilirubin AST ALT Alkaline Phosphatase Total Protein Albumin Albumin/Globulin Ratio Lipase Meds: Medications Acetaminophen (Acetaminophen 325 Mg Tablet) 650 mg PO Q4-6HP PRN; Protocol PRN Reason: Per Pain Protocol/Fever > 101 Hydrocodone Bitart/Acetaminophen (Hydrocodone/Apap 7.5/325mg Tablet) 1 - 2 tab PO Q4HP PRN; Protocol PRN Reason: Per Pain Protocol Last Admin: 04/03/22 20:35 Dose: 1 tab Ondansetron HCl (Ondansetron 4 Mg/2 Ml Vial) 4 mg IV Q4-6HP PRN; Protocol PRN Reason: Nausea And Vomiting Pantoprazole Sodium (Pantoprazole 40 Mg Vial) 40 mg IV BIDAC [facility] Last Admin: 04/04/22 08:06 Dose: 40 mg Sodium Chloride (0.9 % Sodium Chloride 10 Ml Syringe) 10 ml IV Q8 [facility] Last Admin: 04/04/22 05:31 Dose: 10 ml A/P Assessment and plan (1) GI bleed: Status: Acute (2) Supratherapeutic INR: Status: Acute (3) Anticoagulant long-term use: Status: Acute (4) Chronic atrial fibrillation: Status: Chronic (5) Ascites: Status: Acute (6) Bilateral pleural effusion: Status: Acute Narrative A/P Narrative: The patient presents with melanotic stool. Imaging was concerning for sigmoid diverticuli. He did have a recent colonoscopy in November 2021. We will consult GI for consideration of upper endoscopy. The patient will be started on Protonix 40 mg IV twice daily. His H&H is stable but we will have to reverse his coagulopathy. He was given vitamin K 5 mg p.o. x1 and 1 unit of FFP in the ER. In the setting of hypotension and suspected active GI bleed, we will also transfuse 1 unit of packed red blood cells. He was noted to have an ANIYA and will monitor serial BMP. We will hold his home cardiac medications including amiodarone, metoprolol, and Coumadin. The patient has a history of colon cancer and now has new bilateral pleural effusions and ascites. We will consult general surgery for thoracentesis and paracentesis to send for cytology. Overall, the patient is full code with no power of privacy attorney. It would be helpful to discuss goals of care and refer the patient to palliative care. 04/04: GI does not recommend endoscopy at this time. Radiology will perform paracentesis and thoracentesis. H&H remained stable. INR has come down to 3.0. Patient will need psychosocial assessment by case management, social work, and PT. Time Spent With Patient Time: Total time spent is greater than 50% in coordination of care (as documented) at patient's floor/unit and/or counseling patient: Subsequent: Total time with patient: 25 - 34 minutes
[2022-04-04 14:18] LABS: Partial Thromboplastin Time 45.4 sec (20.0-37.0)
[2022-04-04 14:19] LABS: INR 1.9 (0.9-1.1); Prothrombin Time 22.1 sec (11.9-14.5)
--- NOTE | 2022-04-04 14:31 | Internal Medicine Consult Note ---
HPI Date of Consult Consult Date: 04/04/22 Requesting physician: Kirsty Talley Primary Care Provider: Harpreet Bloom MD Consult Narrative Patient Information: Note initiated : 04/04/22 at 2:20 pm Service Date, if different from initiated Date: [] Patient: Dakota Mejia 82 y/o M admitted on 04/03/22 for altered. Chief Complaint: [GI bleed with supratherapeutic INR] 82 yo white male w/a history of coumadin use secondary to afib and CAD (s/p CABG), colon cancer s/p partial hepatectomy due to metastatic disease and s/p colon resection for recurrence last year, with cognitive decline presented to ED yesterday for a 3 week history of black stools and abdominal pain. On arrival, Hgb 11.7 with INR 14. On recheck, it had dropped to 10.9. He was given ffP and vitamin K and Hgb dropped to 10.3. He was given 1 u PRBC and hgb is stable at 11.2 this morning. He continues to have melena per nursing staff. He is hungry and appetite is good on a clear liquid diet. He tells me he thinks he has lost weight because his clothes are looser. CT showed ascites (albumin 2.5) with dense liver. Paracentesis pending normalization of INR which was 3.0 this morning. Patient is a poor historian. Lives at home with a roommate. Per nursing, OT did a cognitive eval this morning and he scored 11/30 so not sure if he can consent for himself. Chief complaint: GI bleed with supratherapeutic INR Reason for consult: GI bleed with supratherapeutic INR cc:: CC: Kirsty Talley MD Review of Systems ROS unobtainable: due to mental status PFSH PFSH All Active Problems (Updated 04/03/22 @ 21:34 by Chris Harley PA-C) Elevated INR (Acute) Acute GI bleeding (Acute) Acute hypokalemia (Acute) ANIYA (acute kidney injury) (Acute) Bilateral pleural effusion (Acute) Ascites (Acute) Supratherapeutic INR (Acute) GI bleed (Acute) Nausea (Acute) Abdominal pain (Acute) Thyroglossal cyst (Acute) Personal history of colon cancer (Acute) half-way (current) use of opiate analgesic (Chronic) Diarrhea following gastrointestinal surgery (Acute) Hypertension (Chronic) Arthritis of right hip (Chronic) Anticoagulant long-term use (Acute) Chronic atrial fibrillation (Chronic) Anemia (Chronic) Anxiety about health (Acute) Adenocarcinoma of descending colon (Acute) Acute anterior epistaxis (Acute) Generalized pruritus (Acute) Degenerative joint disease (DJD) of lumbar spine (Acute) H/O chemical exposure (Acute) Mite infestation (Acute) Medicare annual wellness visit, subsequent (Acute) Partial small bowel obstruction (Chronic ~07/2011) Hearing loss (Chronic) Adenocarcinoma of sigmoid colon (Chronic) Gout (Chronic) Sinus bradycardia (Chronic) Constipation (Chronic) Rosacea (Chronic) GERD (gastroesophageal reflux disease) (Chronic) Hyperlipidemia (Chronic) Chronic back pain (Chronic) Fatigue (Chronic) Right knee pain (Chronic) Allergic rhinitis (Chronic) History of Coumadin therapy (Chronic) Cardiac pacemaker in situ (Chronic) Allergic contact dermatitis due to other chemical products (Chronic) Herpes zoster (Chronic) Hemorrhoids (Chronic) Diverticulosis of colon without hemorrhage (Chronic) Benign neoplasm of transverse colon (Chronic) BPH without urinary obstruction (Chronic) Bilateral impacted cerumen (Chronic) Adenocarcinoma of sigmoid colon (Acute) Gout (Acute) Sinus bradycardia (Acute) Constipation (Acute) Diverticulosis (Acute) Rosacea (Acute) GERD (gastroesophageal reflux disease) (Acute) Hyperlipidemia (Acute) Tendonitis of shoulder, right (Acute) Cardiac pacemaker in situ (Acute) Herpes zoster (Acute) half-way (current) use of opiate analgesic (Acute) Arthritis of right hip (Acute) Hemorrhoids (Acute) Diverticulosis of colon without hemorrhage (Acute) BPH NOS w/o ur obs/LUTS (Acute) Ecchymosis (Acute) Suspected condition not found (Acute) History of colon cancer (Chronic) 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) Coronary artery disease (Chronic) Chronic obstructive lung disease (Chronic) Medical History Adenocarcinoma of sigmoid colon Allergic contact dermatitis due to other chemical products Allergic rhinitis Anemia Arthritis of right hip Benign neoplasm of transverse colon Bilateral impacted cerumen BPH without urinary obstruction Cardiac pacemaker in situ Chronic atrial fibrillation Chronic back pain Chronic obstructive lung disease Colonoscopy causing post-procedural bleeding Constipation Coronary artery disease Diverticulosis of colon without hemorrhage Fatigue GERD (gastroesophageal reflux disease) Gout Hearing loss Hemorrhoids Herpes zoster History of colon cancer History of Coumadin therapy History of malignant neoplasm metastatic to liver Hyperlipidemia 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 Father , @ age 71 yr old Prostate cancer Social History marital status: occupational status: retired smoking status: Never smoker smoking status stop date: 03/24/74 alcohol intake frequency: former alcohol drinker substance use type: does not use additional history: Twin sister in [place], Brother Theo-is his transport on occasion 4 daughters alive & well MEDS/ALLERGIES Home Medications and Allergies Home Medications Medication Instructions Recorded Confirmed Type cyanocobalamin (vitamin B-12) 1,000 mcg PO QMONTH 01/11/19 04/04/22 History 1,000 mcg capsule metoprolol succinate 100 mg 100 mg PO QAM 09/28/20 04/03/22 History tablet,extended release 24 hr fluticasone propionate 50 1 spray intranasal QDAY 12/14/20 04/04/22 History mcg/actuation nasal spray,suspension diphenoxylate-atropine 2.5 1 tab PO TID PRN diarrhea #90 tabs 06/04/21 04/03/22 Rx mg-0.025 mg tablet (Lomotil) omeprazole magnesium 20 mg 20 mg PO QDAY #90 tabs 06/04/21 04/03/22 Rx tablet,delayed release (Prilosec OTC) tamsulosin 0.4 mg capsule 0.4 mg PO HS #90 caps 06/04/21 04/03/22 Rx montelukast 10 mg tablet 10 mg PO HS #30 tabs 08/02/21 04/03/22 Rx nitroglycerin 0.4 mg sublingual 0.4 mg sublingual Q5-15M PRN Chest 08/15/21 04/03/22 Rx tablet Pain #25 tabs famotidine 20 mg tablet 20 mg PO QPM 11/20/21 04/03/22 History albuterol sulfate 90 mcg/actuation See Rx Instructions .Route 11/27/21 04/03/22 Rx aerosol inhaler .COMPLEX ##18 amiodarone 200 mg tablet 200 mg PO BID #60 tabs 12/07/21 04/03/22 Rx warfarin 3 mg tablet 1.5 mg PO DAILY #30 tabs 02/19/22 04/03/22 Rx furosemide 20 mg tablet 20 mg PO QAM #30 tabs 03/12/22 04/03/22 Rx lorazepam 2 mg tablet 2 mg PO TID PRN Anxiety 30 days 03/12/22 04/03/22 Rx #90 tabs hydrocodone 7.5 mg-acetaminophen 1 - 2 tab PO Q4HP PRN Pain #120 03/29/22 04/03/22 Rx 325 mg tablet tabs potassium chloride 10 mEq 10 meq PO QDAY 04/03/22 04/04/22 History tablet,extended release Allergies Allergy/AdvReac Type Severity Reaction Status Date / Time Jeckydo-PVR-KmP Reductase AdvReac Intermediate Muscle Pain Verified 04/03/22 20:10 Inhibitor [Vdlvtlf-Wnx-Vbw Reductase Inhibitor] levofloxacin [From Levaquin] AdvReac Mild Itching Verified 04/03/22 20:10 oxycodone AdvReac Mild Itching Verified 04/03/22 20:10 EXAM Constitutional Vitals: Temp Pulse Resp BP Pulse Ox O2 Del Method O2 Flow Rate 98.6 F 60 22 112/51 94 1 04/04/22 12:01 04/04/22 14:01 04/04/22 14:01 04/04/22 14:01 04/04/22 14:01 04/04/22 14:01 04/04/22 00:30 General appearance: average body habitus, cooperative and no acute distress Head Head exam: Present atraumatic and normal inspection Eye Eye exam: Present normal appearance; Absent scleral icterus ENT ENT exam: Present normal exam Neck Neck exam: Present normal inspection Respiratory Respiratory exam: Absent accessory muscle use GI/Abdominal GI/Abdominal exam: Present normal bowel sounds Additional comments: rounded with ascites. Expanded GI/Abdominal Exam GI/Abdominal exam: Present ascites Extremities Exam Extremities exam: Present pedal edema Neurological Exam Neurological exam: Present alert Psychiatric Psychiatric exam: Present normal affect and normal mood; Absent agitated Expanded Skin Exam Type of lesion: Present abrasion Additional findings Additional findings: RLE DATA Data Completed and Pending Labs: Labs from last 24 hours 04/04/22 04/04/22 04/04/22 13:30 13:30 08:04 WBC 7.1 RBC 3.76 L Hgb 11.2 L Hct 34.0 L POC Hct MCV 90.4 MCH 29.8 MCHC 32.9 RDW 17.4 H Plt Count 111 L 103 L MPV 12.9 H Immature Gran % (Auto) 0.4 Neut % (Auto) 74.4 Lymph % (Auto) 12.7 L [place] % (Auto) 12.3 H Eos % (Auto) 0.1 Baso % (Auto) 0.1 Lymph # (Auto) 0.90 L [place] # (Auto) 0.87 Eos # (Auto) 0.01 Baso # (Auto) 0.01 Immature Gran # 0.03 Absolute Neutrophils 5.25 PT 22.1 H INR 1.9 H APTT 45.4 H Plt Func Collagen/Epi Pending POC Sodium Sodium POC Potassium Potassium POC Chloride Chloride Carbon Dioxide POC Total CO2 Anion Gap POC BUN BUN Creatinine POC Creatinine GFR Calculation Glucose POC Glucose Calcium POC WB Ioniz Calcium Magnesium Iron TIBC Unsat Iron Binding Transferrin % Sat Ferritin Total Bilirubin Direct Bilirubin AST ALT Alkaline Phosphatase Total Protein Albumin Globulin Albumin/Globulin Ratio Lipase Vitamin K 04/04/22 04/04/22 04/04/22 08:03 05:17 01:57 WBC RBC Hgb 10.3 L Hct 30.4 L POC Hct MCV MCH MCHC RDW Plt Count MPV Immature Gran % (Auto) Neut % (Auto) Lymph % (Auto) [place] % (Auto) Eos % (Auto) Baso % (Auto) Lymph # (Auto) [place] # (Auto) Eos # (Auto) Baso # (Auto) Immature Gran # Absolute Neutrophils PT INR APTT Plt Func Collagen/Epi POC Sodium Sodium 137 POC Potassium Potassium 2.6 L* POC Chloride Chloride 99 Carbon Dioxide 27 POC Total CO2 Anion Gap 11.0 POC BUN BUN 36 H Creatinine 2.2 H POC Creatinine GFR Calculation 27 Glucose 95 POC Glucose Calcium 7.3 L POC WB Ioniz Calcium Magnesium Iron 53 L TIBC 163 L Unsat Iron Binding 110 L Transferrin % Sat 33 Ferritin 289.3 Total Bilirubin 2.3 H Direct Bilirubin AST 196 H ALT 87 H Alkaline Phosphatase 260 H Total Protein 5.4 L Albumin 2.2 L Globulin 3.2 Albumin/Globulin Ratio 0.7 L Lipase Vitamin K 04/03/22 04/03/22 04/03/22 22:18 20:45 20:45 WBC RBC Hgb 10.3 L Hct 30.9 L POC Hct MCV MCH MCHC RDW Plt Count MPV Immature Gran % (Auto) Neut % (Auto) Lymph % (Auto) [place] % (Auto) Eos % (Auto) Baso % (Auto) Lymph # (Auto) [place] # (Auto) Eos # (Auto) Baso # (Auto) Immature Gran # Absolute Neutrophils PT INR APTT Plt Func Collagen/Epi POC Sodium Sodium 134 TNP POC Potassium Potassium 2.6 L* TNP POC Chloride Chloride 99 TNP Carbon Dioxide 29 TNP POC Total CO2 Anion Gap 6.0 L TNP POC BUN BUN 37 H TNP Creatinine 2.1 H TNP POC Creatinine GFR Calculation 28 TNP Glucose 103 TNP POC Glucose Calcium 7.2 L TNP POC WB Ioniz Calcium Magnesium Iron TIBC Unsat Iron Binding Transferrin % Sat Ferritin Total Bilirubin Direct Bilirubin AST ALT Alkaline Phosphatase Total Protein Albumin Globulin Albumin/Globulin Ratio Lipase Vitamin K 04/03/22 04/03/22 04/03/22 20:45 17:05 17:00 WBC 9.3 RBC 3.56 L Hgb 10.9 L Hct 32.3 L POC Hct 36.0 L MCV 90.7 MCH 30.6 MCHC 33.7 RDW 17.4 H Plt Count 132 L MPV 12.1 Immature Gran % (Auto) 0.3 Neut % (Auto) 68.1 Lymph % (Auto) 13.6 L [place] % (Auto) 17.7 H Eos % (Auto) 0.1 Baso % (Auto) 0.2 Lymph # (Auto) 1.27 L [place] # (Auto) 1.65 H Eos # (Auto) 0.01 Baso # (Auto) 0.02 Immature Gran # 0.03 Absolute Neutrophils 6.35 PT 32.0 H INR 3.0 H APTT Plt Func Collagen/Epi POC Sodium 137 Sodium POC Potassium 2.5 L* Potassium POC Chloride 97 Chloride Carbon Dioxide POC Total CO2 28.0 Anion Gap POC BUN 36 H BUN Creatinine POC Creatinine 2.4 H GFR Calculation Glucose POC Glucose 106 H Calcium POC WB Ioniz Calcium 0.96 L Magnesium Iron TIBC Unsat Iron Binding Transferrin % Sat Ferritin Total Bilirubin Direct Bilirubin AST ALT Alkaline Phosphatase Total Protein Albumin Globulin Albumin/Globulin Ratio Lipase Vitamin K 04/03/22 04/03/22 04/03/22 17:00 13:38 13:38 WBC RBC Hgb Hct POC Hct MCV MCH MCHC RDW Plt Count MPV Immature Gran % (Auto) Neut % (Auto) Lymph % (Auto) [place] % (Auto) Eos % (Auto) Baso % (Auto) Lymph # (Auto) [place] # (Auto) Eos # (Auto) Baso # (Auto) Immature Gran # Absolute Neutrophils PT 111.8 H INR 14.5 H* APTT 84.7 H Plt Func Collagen/Epi POC Sodium Sodium POC Potassium Potassium POC Chloride Chloride Carbon Dioxide POC Total CO2 Anion Gap POC BUN BUN Creatinine POC Creatinine GFR Calculation Glucose POC Glucose Calcium POC WB Ioniz Calcium Magnesium 2.1 Iron TIBC Unsat Iron Binding Transferrin % Sat Ferritin Total Bilirubin 2.4 H Direct Bilirubin 1.1 H AST 234 H ALT 100 H Alkaline Phosphatase 319 H Total Protein 6.2 Albumin 2.5 L Globulin 3.7 Albumin/Globulin Ratio Lipase 92 H Vitamin K Pending 04/03/22 13:38 WBC 9.5 RBC 3.87 L Hgb 11.7 L Hct 35.0 L POC Hct MCV 90.4 MCH 30.2 MCHC 33.4 RDW 17.5 H Plt Count 140 MPV 12.1 Immature Gran % (Auto) 0.3 Neut % (Auto) 75.2 Lymph % (Auto) 10.4 L [place] % (Auto) 13.9 H Eos % (Auto) 0 Baso % (Auto) 0.2 Lymph # (Auto) 0.99 L [place] # (Auto) 1.32 H Eos # (Auto) 0 Baso # (Auto) 0.02 Immature Gran # 0.03 Absolute Neutrophils 7.16 PT INR APTT Plt Func Collagen/Epi POC Sodium Sodium POC Potassium Potassium POC Chloride Chloride Carbon Dioxide POC Total CO2 Anion Gap POC BUN BUN Creatinine POC Creatinine GFR Calculation Glucose POC Glucose Calcium POC WB Ioniz Calcium Magnesium Iron TIBC Unsat Iron Binding Transferrin % Sat Ferritin Total Bilirubin Direct Bilirubin AST ALT Alkaline Phosphatase Total Protein Albumin Globulin Albumin/Globulin Ratio Lipase Vitamin K A/P Assessment and plan (1) Acute GI bleeding: Assessment and plan: I discussed his case with Dr. Cardenas. Endoscopic evaluation of GI bleeding in the setting of a supratherapeutic INR is of low yield. We suspect he will have melena for several days. Should he have a precipitous drop in hgb after correction of his INR, we would consider EGD at that time. Given his cognitive decline, perhaps changing from warfarin to a DOAC would be reasonable. We will advance his diet to a full liquid diet. Status: Acute Time Spent With Patient Time: Total time spent is greater than 50% in coordination of care (as documented) at patient's floor/unit and/or counseling patient: Initial: Total time with patient: 40 - 54 minutes
--- NOTE | 2022-04-04 17:18 | General Surgery Consult Note ---
HPI Date of Consult Consult Date: 04/04/22 Primary Care Provider: Harpreet Bloom MD Consult Narrative Patient Information: Note initiated : 04/04/22 at 5:16 pm Service Date, if different from initiated Date: [] Patient: Dakota Mejia 82 y/o M admitted on 04/03/22 for altered. Asked to see patient secondary to pleural effusion and ascites. Patient is a 82 y/o male wth h/o metastatic colon cancer, s/p resection and partial hepatectomy in 1984. Patient with recurrent colon cancer in 2020, s/p subtotal colectomy by Dr. Vuong. Has been follow by heme/onc since. Patient presents with melanotic stools. GI asked to scope. Patient with afib, INR 14 on presentation. Asymptomatic from effusion and ascites. Chief Complaint: [] cc:: CC: Kirsty Talley MD Review of Systems All systems: reviewed and no additional remarkable complaints except as stated PFSH PFSH All Active Problems (Updated 04/03/22 @ 21:34 by Chris Harley PA-C) Elevated INR (Acute) Acute GI bleeding (Acute) Acute hypokalemia (Acute) ANIYA (acute kidney injury) (Acute) Bilateral pleural effusion (Acute) Ascites (Acute) Supratherapeutic INR (Acute) GI bleed (Acute) Nausea (Acute) Abdominal pain (Acute) Thyroglossal cyst (Acute) Personal history of colon cancer (Acute) [facility] (current) use of opiate analgesic (Chronic) Diarrhea following gastrointestinal surgery (Acute) Hypertension (Chronic) Arthritis of right hip (Chronic) Anticoagulant long-term use (Acute) Chronic atrial fibrillation (Chronic) Anemia (Chronic) Anxiety about health (Acute) Adenocarcinoma of descending colon (Acute) Acute anterior epistaxis (Acute) Generalized pruritus (Acute) Degenerative joint disease (DJD) of lumbar spine (Acute) H/O chemical exposure (Acute) Mite infestation (Acute) Medicare annual wellness visit, subsequent (Acute) Partial small bowel obstruction (Chronic ~07/2011) Hearing loss (Chronic) Adenocarcinoma of sigmoid colon (Chronic) Gout (Chronic) Sinus bradycardia (Chronic) Constipation (Chronic) Rosacea (Chronic) GERD (gastroesophageal reflux disease) (Chronic) Hyperlipidemia (Chronic) Chronic back pain (Chronic) Fatigue (Chronic) Right knee pain (Chronic) Allergic rhinitis (Chronic) History of Coumadin therapy (Chronic) Cardiac pacemaker in situ (Chronic) Allergic contact dermatitis due to other chemical products (Chronic) Herpes zoster (Chronic) Hemorrhoids (Chronic) Diverticulosis of colon without hemorrhage (Chronic) Benign neoplasm of transverse colon (Chronic) BPH without urinary obstruction (Chronic) Bilateral impacted cerumen (Chronic) Adenocarcinoma of sigmoid colon (Acute) Gout (Acute) Sinus bradycardia (Acute) Constipation (Acute) Diverticulosis (Acute) Rosacea (Acute) GERD (gastroesophageal reflux disease) (Acute) Hyperlipidemia (Acute) Tendonitis of shoulder, right (Acute) Cardiac pacemaker in situ (Acute) Herpes zoster (Acute) [facility] (current) use of opiate analgesic (Acute) Arthritis of right hip (Acute) Hemorrhoids (Acute) Diverticulosis of colon without hemorrhage (Acute) BPH NOS w/o ur obs/LUTS (Acute) Ecchymosis (Acute) Suspected condition not found (Acute) History of colon cancer (Chronic) 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) Coronary artery disease (Chronic) Chronic obstructive lung disease (Chronic) Medical History Adenocarcinoma of sigmoid colon Allergic contact dermatitis due to other chemical products Allergic rhinitis Anemia Arthritis of right hip Benign neoplasm of transverse colon Bilateral impacted cerumen BPH without urinary obstruction Cardiac pacemaker in situ Chronic atrial fibrillation Chronic back pain Chronic obstructive lung disease Colonoscopy causing post-procedural bleeding Constipation Coronary artery disease Diverticulosis of colon without hemorrhage Fatigue GERD (gastroesophageal reflux disease) Gout Hearing loss Hemorrhoids Herpes zoster History of colon cancer History of Coumadin therapy History of malignant neoplasm metastatic to liver Hyperlipidemia 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 Father , @ age 71 yr old Prostate cancer Social History marital status: occupational status: retired smoking status: Never smoker smoking status stop date: 03/24/74 alcohol intake frequency: former alcohol drinker substance use type: does not use additional history: Twin sister in [place], Brother Theo-is his transport on occasion 4 daughters alive & well MEDS/ALLERGIES Home Medications and Allergies Home Medications Medication Instructions Recorded Confirmed Type cyanocobalamin (vitamin B-12) 1,000 mcg PO QMONTH 01/11/19 04/04/22 History 1,000 mcg capsule metoprolol succinate 100 mg 100 mg PO QAM 09/28/20 04/03/22 History tablet,extended release 24 hr fluticasone propionate 50 1 spray intranasal QDAY 12/14/20 04/04/22 History mcg/actuation nasal spray,suspension diphenoxylate-atropine 2.5 1 tab PO TID PRN diarrhea #90 tabs 06/04/21 04/03/22 Rx mg-0.025 mg tablet (Lomotil) omeprazole magnesium 20 mg 20 mg PO QDAY #90 tabs 06/04/21 04/03/22 Rx tablet,delayed release (Prilosec OTC) tamsulosin 0.4 mg capsule 0.4 mg PO HS #90 caps 06/04/21 04/03/22 Rx montelukast 10 mg tablet 10 mg PO HS #30 tabs 08/02/21 04/03/22 Rx nitroglycerin 0.4 mg sublingual 0.4 mg sublingual Q5-15M PRN Chest 08/15/21 04/03/22 Rx tablet Pain #25 tabs famotidine 20 mg tablet 20 mg PO QPM 11/20/21 04/03/22 History albuterol sulfate 90 mcg/actuation See Rx Instructions .Route 11/27/21 04/03/22 Rx aerosol inhaler .COMPLEX ##18 amiodarone 200 mg tablet 200 mg PO BID #60 tabs 12/07/21 04/03/22 Rx warfarin 3 mg tablet 1.5 mg PO DAILY #30 tabs 02/19/22 04/03/22 Rx furosemide 20 mg tablet 20 mg PO QAM #30 tabs 03/12/22 04/03/22 Rx lorazepam 2 mg tablet 2 mg PO TID PRN Anxiety 30 days 03/12/22 04/03/22 Rx #90 tabs hydrocodone 7.5 mg-acetaminophen 1 - 2 tab PO Q4HP PRN Pain #120 03/29/22 04/03/22 Rx 325 mg tablet tabs potassium chloride 10 mEq 10 meq PO QDAY 04/03/22 04/04/22 History tablet,extended release Allergies Allergy/AdvReac Type Severity Reaction Status Date / Time [id number]-[id number] Reductase AdvReac Intermediate Muscle Pain Verified 04/03/22 20:10 Inhibitor [Emvzbge-Eei-Gco Reductase Inhibitor] levofloxacin [From Levaquin] AdvReac Mild Itching Verified 04/03/22 20:10 oxycodone AdvReac Mild Itching Verified 04/03/22 20:10 Physical Examination Vital Signs Vital signs: Temp Pulse Resp BP Pulse Ox O2 Del Method O2 Flow Rate 97.7 F 64 20 120/51 94 1 04/04/22 16:04/04/22 16:04/04/22 16:04/04/22 16:04/04/22 16:04/04/22 16:04/04/22 00:30 General physical appearance General physical exam: well developed, well nourished and no distress Eyes Eye exam: PERRL and normal ocular movement ENT ENT exam: normal pinna, normal nares, normal mucosa, no hearing loss and no congestion Head Head exam IM: Present atraumatic and normocephalic Neck Neck exam: no masses, no bruits, trachea midline, no lymphadenopathy and no venous distension Cardiovascular Cardiovascular exam IM: Present normal rate and rhythm Respiratory Respiratory exam: normal expansion, normal respiratory effort, clear to percussion and clear to auscultation Abdomen Abdomen: Present soft, non tender and bowel sounds Hernia: Present none Genitourinary Genitourinary (Male): Present normal penis with no external lesions Rectum Rectum: Present normal sphincter tone, no hemorrhoids, no tenderness, no masses and no bleeding Integumentary Integumentary: Present no rash, no growths and no abnormal pigmentation Neurologic Neurologic: Present normal coordination and normal sensation Musculoskeletal Musculoskeletal: Present normal gait and normal posture Psychiatric Psychiatric: Present oriented to time, oriented to person, oriented to place, speech is normal and memory intact Results Labs Result diagrams: 04/04/22 13:30 04/04/22 08:03 Labs: Abnormal lab results 04/03/22 04/03/22 04/03/22 Range/Units 17:00 20:45 20:45 RBC 3.56 L (4.63-6.08) M/mcL Hgb 10.9 L 10.3 L (13.7-17.5) g/dL Hct 32.3 L 30.9 L (40.1-51.0) % RDW 17.4 H (11.5-14.5) % Plt Count 132 L (140-440) K/mcL MPV (8.8-12.5) fL Lymph % (Auto) 13.6 L (15.5-49.0) % [place] % (Auto) 17.7 H (1.0-12.0) % Lymph # (Auto) 1.27 L (1.50-4.80) K/mcL [place] # (Auto) 1.65 H (0.10-0.90) K/mcL PT 32.0 H (11.9-14.5) sec INR 3.0 H (0.9-1.1) APTT (20.0-37.0) sec Plt Func Collagen/Epi (82-175) sec Potassium (3.3-5.1) mmol/L Anion Gap (8.0-16.0) BUN (8-23) mg/dL Creatinine (0.7-1.2) mg/dL Calcium (8.6-10.4) mg/dL Iron (61-157) ug/dL TIBC (228-428) ug/dl Unsat Iron Binding (112-346) mcg/dL Total Bilirubin (0.1-1.0) mg/dL AST (<40) U/L ALT (<40) U/L Alkaline Phosphatase (39-117) U/L Total Protein (5.9-8.4) gm/dL Albumin (3.2-5.2) gm/dL Albumin/Globulin Ratio (1.0-2.3) 04/03/22 04/04/22 04/04/22 Range/Units 22:18 01:57 05:17 RBC (4.63-6.08) M/mcL Hgb 10.3 L (13.7-17.5) g/dL Hct 30.4 L (40.1-51.0) % RDW (11.5-14.5) % Plt Count (140-440) K/mcL MPV (8.8-12.5) fL Lymph % (Auto) (15.5-49.0) % [place] % (Auto) (1.0-12.0) % Lymph # (Auto) (1.50-4.80) K/mcL [place] # (Auto) (0.10-0.90) K/mcL PT (11.9-14.5) sec INR (0.9-1.1) APTT (20.0-37.0) sec Plt Func Collagen/Epi (82-175) sec Potassium 2.6 L* (3.3-5.1) mmol/L Anion Gap 6.0 L (8.0-16.0) BUN 37 H (8-23) mg/dL Creatinine 2.1 H (0.7-1.2) mg/dL Calcium 7.2 L (8.6-10.4) mg/dL Iron 53 L (61-157) ug/dL TIBC 163 L (228-428) ug/dl Unsat Iron Binding 110 L (112-346) mcg/dL Total Bilirubin (0.1-1.0) mg/dL AST (<40) U/L ALT (<40) U/L Alkaline Phosphatase (39-117) U/L Total Protein (5.9-8.4) gm/dL Albumin (3.2-5.2) gm/dL Albumin/Globulin Ratio (1.0-2.3) 04/04/22 04/04/22 04/04/22 Range/Units 08:03 08:04 13:30 RBC 3.76 L (4.63-6.08) M/mcL Hgb 11.2 L (13.7-17.5) g/dL Hct 34.0 L (40.1-51.0) % RDW 17.4 H (11.5-14.5) % Plt Count 103 L 111 L (140-440) K/mcL MPV 12.9 H (8.8-12.5) fL Lymph % (Auto) 12.7 L (15.5-49.0) % [place] % (Auto) 12.3 H (1.0-12.0) % Lymph # (Auto) 0.90 L (1.50-4.80) K/mcL [place] # (Auto) (0.10-0.90) K/mcL PT (11.9-14.5) sec INR (0.9-1.1) APTT (20.0-37.0) sec Plt Func Collagen/Epi (82-175) sec Potassium 2.6 L* (3.3-5.1) mmol/L Anion Gap (8.0-16.0) BUN 36 H (8-23) mg/dL Creatinine 2.2 H (0.7-1.2) mg/dL Calcium 7.3 L (8.6-10.4) mg/dL Iron (61-157) ug/dL TIBC (228-428) ug/dl Unsat Iron Binding (112-346) mcg/dL Total Bilirubin 2.3 H (0.1-1.0) mg/dL AST 196 H (<40) U/L ALT 87 H (<40) U/L Alkaline Phosphatase 260 H (39-117) U/L Total Protein 5.4 L (5.9-8.4) gm/dL Albumin 2.2 L (3.2-5.2) gm/dL Albumin/Globulin Ratio 0.7 L (1.0-2.3) 04/04/22 Range/Units 13:30 RBC (4.63-6.08) M/mcL Hgb (13.7-17.5) g/dL Hct (40.1-51.0) % RDW (11.5-14.5) % Plt Count (140-440) K/mcL MPV (8.8-12.5) fL Lymph % (Auto) (15.5-49.0) % [place] % (Auto) (1.0-12.0) % Lymph # (Auto) (1.50-4.80) K/mcL [place] # (Auto) (0.10-0.90) K/mcL PT 22.1 H (11.9-14.5) sec INR 1.9 H (0.9-1.1) APTT 45.4 H (20.0-37.0) sec Plt Func Collagen/Epi 77 L (82-175) sec Potassium (3.3-5.1) mmol/L Anion Gap (8.0-16.0) BUN (8-23) mg/dL Creatinine (0.7-1.2) mg/dL Calcium (8.6-10.4) mg/dL Iron (61-157) ug/dL TIBC (228-428) ug/dl Unsat Iron Binding (112-346) mcg/dL Total Bilirubin (0.1-1.0) mg/dL AST (<40) U/L ALT (<40) U/L Alkaline Phosphatase (39-117) U/L Total Protein (5.9-8.4) gm/dL Albumin (3.2-5.2) gm/dL Albumin/Globulin Ratio (1.0-2.3) Diabetes panel 04/03/22 04/03/22 04/04/22 Range/Units 20:45 22:18 08:03 Sodium TNP 134 137 Potassium TNP 2.6 L* 2.6 L* Chloride TNP 99 99 Carbon Dioxide TNP 29 27 BUN TNP 37 H 36 H Creatinine TNP 2.1 H 2.2 H Glucose TNP 103 95 Calcium TNP 7.2 L 7.3 L AST 196 H (<40) U/L ALT 87 H (<40) U/L Alkaline Phosphatase 260 H (39-117) U/L Total Protein 5.4 L (5.9-8.4) gm/dL Albumin 2.2 L (3.2-5.2) gm/dL Calcium panel 04/03/22 04/03/22 04/04/22 Range/Units 20:45 22:18 08:03 Calcium TNP 7.2 L 7.3 L Albumin 2.2 L (3.2-5.2) gm/dL Pituitary panel 04/03/22 04/03/22 04/04/22 Range/Units 20:45 22:18 08:03 Sodium TNP 134 137 Potassium TNP 2.6 L* 2.6 L* Chloride TNP 99 99 Carbon Dioxide TNP 29 27 BUN TNP 37 H 36 H Creatinine TNP 2.1 H 2.2 H Glucose TNP 103 95 Calcium TNP 7.2 L 7.3 L Adrenal panel 04/03/22 04/03/22 04/04/22 Range/Units 20:45 22:18 08:03 Sodium TNP 134 137 Potassium TNP 2.6 L* 2.6 L* Chloride TNP 99 99 Carbon Dioxide TNP 29 27 BUN TNP 37 H 36 H Creatinine TNP 2.1 H 2.2 H Glucose TNP 103 95 Calcium TNP 7.2 L 7.3 L Total Bilirubin 2.3 H (0.1-1.0) mg/dL AST 196 H (<40) U/L ALT 87 H (<40) U/L Alkaline Phosphatase 260 H (39-117) U/L Total Protein 5.4 L (5.9-8.4) gm/dL Albumin 2.2 L (3.2-5.2) gm/dL All other labs normal. A/P Assessment and plan (1) Bilateral pleural effusion: Status: Acute (2) Ascites: Status: Acute Narrative Plan of Treatment: Pleural effusion and ascites in pt with known h/o colon cancer. would not tap either. Recommend follow up with heme/onc to eval for IR drain of effusions. Call with further questions. Time Spent With Patient Time: Total time spent is greater than 50% in coordination of care (as documented) at patient's floor/unit and/or counseling patient:
[2022-04-04] MEDS: HYDROCODONE/APAP 7.5/325MG TABLET PO PRN (17:31)
[2022-04-05] MEDS: 0.9 % SODIUM CHLORIDE 10 ML SYRINGE IV SCH ×3 (05:56→22:01)
[2022-04-05 06:51] LABS: Basophils # (Auto) 0.01 K/mcL (0.00-0.30); Basophils % (Auto) 0.1 % (0.0-2.0); Eosinophils # (Auto) 0 K/mcL (0.00-0.70); Eosinophils % (Auto) 0 % (0.0-7.0); Hematocrit 34.7 % (40.1-51.0); Hemoglobin 11.5 g/dL (13.7-17.5); Lymphocytes # (Auto) 0.86 K/mcL (1.50-4.80); Lymphocytes % (Auto) 10.7 % (15.5-49.0); Mean Cell Volume 90.6 fL (80.0-100.0); Mean Corpuscular HGB Conc 33.1 g/dL (31.0-36.0); Mean Platelet Volume 12.6 fL (8.8-12.5); Monocytes # (Auto) 0.92 K/mcL (0.10-0.90); Monocytes % (Auto) 11.5 % (1.0-12.0); Neutrophils % (Auto) 77.5 % (38.0-78.0); Platelet Count 101 K/mcL (140-440); RBC 3.83 M/mcL (4.63-6.08)
[2022-04-05 07:06] LABS: ALT/SGPT 85 U/L (<40); AST/SGOT 176 U/L (<40); Albumin 2.1 gm/dL (3.2-5.2); Albumin/Globulin Ratio 0.6 (1.0-2.3); Alkaline Phosphatase 256 U/L (39-117); Bilirubin,Total 2.5 mg/dL (0.1-1.0); Blood Urea Nitrogen 37 mg/dL (8-23); Calcium 7.4 mg/dL (8.6-10.4); Carbon Dioxide 27 mmol/L (22-30); Chloride 100 mmol/L (96-108); Globulin 3.3 gm/dL (2.2-3.7); Glomerular Filtration Rate 30; Glucose 100 mg/dL (70-105)
[2022-04-05] MEDS: PANTOPRAZOLE 40 MG VIAL IV SCH ×2 (07:28→16:31)
[2022-04-05] MEDS: POTASSIUM CHLORIDE 20 MEQ TABLET PO SCH ×2 (07:31→16:31)
[2022-04-05] MEDS: LACTATED RINGERS 1,000 ML IV SCH ×2 (07:31→18:24)
--- NOTE | 2022-04-05 10:12 | Internal Med Progress Note ---
SUBJECTIVE Subjective Patient information: Note initiated : 04/05/22 at 10:11 am Service Date, if different from initiated Date: [] Patient: Dakota Mejia 82 y/o M admitted on 04/03/22 for altered. Chief Complaint: [Melena] Principal diagnosis: GIB, supratherapeutic INR Interval history: The patient was resting comfortably in bed. He was able to walk around the medical almaraz. His melanotic stools are clearing up. Constitutional Vitals: Vital Signs Temp Pulse Resp BP Pulse Ox O2 Del Method O2 Flow Rate 97.3 F 74 25 H 128/53 92 0.5 04/05/22 08:10 04/05/22 09:12 04/05/22 09:12 04/05/22 09:12 04/05/22 09:12 04/05/22 09:12 04/05/22 07:02 Period Temp Pulse Resp BP Sys/Yo Pulse Ox O2 Del Method O2 Flow Rate Last 24 Hr 97.2 F-98.6 F 59-76 15-25 100-134/47-105 87-97 Nasal Cannula- Room Air 0.5-2 Intake and Output 04/04/22 04/05/22 04/05/22 19:59 03:59 11:59 Intake Total 820 150 Output Total 800 200 250 Balance 20 -200 -100 Weight 92.703 kg Intake & Output: Intake & Output 04/04/22 04/05/22 04/05/22 19:59 03:59 11:59 Intake Total 820 150 Output Total 800 200 250 Balance 20 -200 -100 Weight 92.703 kg Intake: Oral 820 150 Output: Void Amount 450 200 250 Urine/Stool Mix 350 Other: Meal Dinner Percent of Meal Consumed 50% Feeding Ability Assist with Tray Set Up Urine Appearance Clear Clear Clear Urine Color Yellow Dark Yellow Yellow Stool Size Small Small Small Stool Color Black Brown Brown Black Green Stool Consistency Liquid Soft Formed Loose Loose # Bowel Movements 1 1 Head Head exam: Present atraumatic and normal inspection Eye Eye exam: Present normal appearance ENT ENT exam: Present mucous membranes moist, normal exam and normal external ear exam Neck Neck exam: Present normal inspection Respiratory Respiratory exam: Present normal respiratory exam Cardiovascular Cardiovascular exam: Present normal rate and rhythm GI/Abdominal GI/Abdominal exam: Present normal bowel sounds Back Exam Back exam: Present normal inspection Neurological Exam Neurological exam: Present alert and oriented X3 Skin Skin exam: Present intact and warm OBJ DATA Labs CBC & Chem 7: 04/05/22 05:58 04/05/22 05:57 Labs: Abnormal Lab Results 04/05/22 04/05/22 04/04/22 05:58 05:57 13:30 RBC 3.83 L Hgb 11.5 L Hct 34.7 L POC Hct RDW 18.0 H Plt Count 101 L MPV 12.6 H Lymph % (Auto) 10.7 L [place] % (Auto) Lymph # (Auto) 0.86 L [place] # (Auto) 0.92 H PT 22.1 H INR 1.9 H APTT 45.4 H Plt Func Collagen/Epi 77 L POC Potassium Potassium 2.7 L* POC Total CO2 Anion Gap POC BUN BUN 37 H Creatinine 2.0 H POC Creatinine POC Glucose Calcium 7.4 L POC WB Ioniz Calcium Iron TIBC Unsat Iron Binding Total Bilirubin 2.5 H Direct Bilirubin AST 176 H ALT 85 H Alkaline Phosphatase 256 H Total Protein 5.4 L Albumin 2.1 L Albumin/Globulin Ratio 0.6 L Lipase 04/04/22 04/04/22 04/04/22 13:30 08:04 08:03 RBC 3.76 L Hgb 11.2 L Hct 34.0 L POC Hct RDW 17.4 H Plt Count 111 L 103 L MPV 12.9 H Lymph % (Auto) 12.7 L [place] % (Auto) 12.3 H Lymph # (Auto) 0.90 L [place] # (Auto) PT INR APTT Plt Func Collagen/Epi POC Potassium Potassium 2.6 L* POC Total CO2 Anion Gap POC BUN BUN 36 H Creatinine 2.2 H POC Creatinine POC Glucose Calcium 7.3 L POC WB Ioniz Calcium Iron TIBC Unsat Iron Binding Total Bilirubin 2.3 H Direct Bilirubin AST 196 H ALT 87 H Alkaline Phosphatase 260 H Total Protein 5.4 L Albumin 2.2 L Albumin/Globulin Ratio 0.7 L Lipase 04/04/22 04/04/22 04/03/22 05:17 01:57 22:18 RBC Hgb 10.3 L Hct 30.4 L POC Hct RDW Plt Count MPV Lymph % (Auto) [place] % (Auto) Lymph # (Auto) [place] # (Auto) PT INR APTT Plt Func Collagen/Epi POC Potassium Potassium 2.6 L* POC Total CO2 Anion Gap 6.0 L POC BUN BUN 37 H Creatinine 2.1 H POC Creatinine POC Glucose Calcium 7.2 L POC WB Ioniz Calcium Iron 53 L TIBC 163 L Unsat Iron Binding 110 L Total Bilirubin Direct Bilirubin AST ALT Alkaline Phosphatase Total Protein Albumin Albumin/Globulin Ratio Lipase 04/03/22 04/03/22 04/03/22 20:45 20:45 17:05 RBC Hgb 10.3 L Hct 30.9 L POC Hct 36.0 L RDW Plt Count MPV Lymph % (Auto) [place] % (Auto) Lymph # (Auto) [place] # (Auto) PT 32.0 H INR 3.0 H APTT Plt Func Collagen/Epi POC Potassium 2.5 L* Potassium POC Total CO2 Anion Gap POC BUN 36 H BUN Creatinine POC Creatinine 2.4 H POC Glucose 106 H Calcium POC WB Ioniz Calcium 0.96 L Iron TIBC Unsat Iron Binding Total Bilirubin Direct Bilirubin AST ALT Alkaline Phosphatase Total Protein Albumin Albumin/Globulin Ratio Lipase 04/03/22 04/03/22 04/03/22 17:00 13:38 13:38 RBC 3.56 L Hgb 10.9 L Hct 32.3 L POC Hct RDW 17.4 H Plt Count 132 L MPV Lymph % (Auto) 13.6 L [place] % (Auto) 17.7 H Lymph # (Auto) 1.27 L [place] # (Auto) 1.65 H PT 111.8 H INR 14.5 H* APTT 84.7 H Plt Func Collagen/Epi POC Potassium Potassium POC Total CO2 Anion Gap POC BUN BUN Creatinine POC Creatinine POC Glucose Calcium POC WB Ioniz Calcium Iron TIBC Unsat Iron Binding Total Bilirubin 2.4 H Direct Bilirubin 1.1 H AST 234 H ALT 100 H Alkaline Phosphatase 319 H Total Protein Albumin 2.5 L Albumin/Globulin Ratio Lipase 92 H 04/03/22 04/03/22 13:38 11:55 RBC 3.87 L Hgb 11.7 L Hct 35.0 L POC Hct 37.0 L RDW 17.5 H Plt Count MPV Lymph % (Auto) 10.4 L [place] % (Auto) 13.9 H Lymph # (Auto) 0.99 L [place] # (Auto) 1.32 H PT INR APTT Plt Func Collagen/Epi POC Potassium Potassium POC Total CO2 31.0 H Anion Gap POC BUN 49 H BUN Creatinine POC Creatinine 2.4 H POC Glucose 107 H Calcium POC WB Ioniz Calcium 0.92 L Iron TIBC Unsat Iron Binding Total Bilirubin Direct Bilirubin AST ALT Alkaline Phosphatase Total Protein Albumin Albumin/Globulin Ratio Lipase Meds: Medications Acetaminophen (Acetaminophen 325 Mg Tablet) 650 mg PO Q4-6HP PRN; Protocol PRN Reason: Per Pain Protocol/Fever > 101 Hydrocodone Bitart/Acetaminophen (Hydrocodone/Apap 7.5/325mg Tablet) 1 - 2 tab PO Q4HP PRN; Protocol PRN Reason: Per Pain Protocol Last Admin: 04/04/22 17:31 Dose: 1 tab Lactated Ringer's (Lactated Ringers) 1,000 mls @ 100 mls/hr IV .Q10H [facility] Last Admin: 04/05/22 07:31 Dose: 100 mls/hr Ondansetron HCl (Ondansetron 4 Mg/2 Ml Vial) 4 mg IV Q4-6HP PRN; Protocol PRN Reason: Nausea And Vomiting Pantoprazole Sodium (Pantoprazole 40 Mg Vial) 40 mg IV BIDAC [facility] Last Admin: 04/05/22 07:28 Dose: 40 mg Potassium Chloride (Potassium Chloride 20 Meq Tablet) 40 meq PO BIDCC [facility] Stop: 04/06/22 09:00 Last Admin: 04/05/22 07:31 Dose: 40 meq Sodium Chloride (0.9 % Sodium Chloride 10 Ml Syringe) 10 ml IV Q8 [facility] Last Admin: 04/05/22 05:56 Dose: 10 ml A/P Assessment and plan (1) GI bleed: Status: Acute (2) Supratherapeutic INR: Status: Acute (3) Anticoagulant long-term use: Status: Acute (4) Chronic atrial fibrillation: Status: Chronic (5) Ascites: Status: Acute (6) Bilateral pleural effusion: Status: Acute Narrative A/P Narrative: The patient presents with melanotic stool. Imaging was concerning for sigmoid diverticuli. He did have a recent colonoscopy in November 2021. We will consult GI for consideration of upper endoscopy. The patient will be started on Protonix 40 mg IV twice daily. His H&H is stable but we will have to reverse his coagulopathy. He was given vitamin K 5 mg p.o. x1 and 1 unit of FFP in the ER. In the setting of hypotension and suspected active GI bleed, we will also transfuse 1 unit of packed red blood cells. He was noted to have an ANIYA and will monitor serial BMP. We will hold his home cardiac medications including amiodarone, metoprolol, and Coumadin. The patient has a history of colon cancer and now has new bilateral pleural effusions and ascites. We will consult general surgery for thoracentesis and paracentesis to send for cytology. 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 It would be helpful to discuss goals of care and refer the patient to palliative care. 04/04: GI does not recommend endoscopy at this time. Radiology will perform paracentesis and thoracentesis. H&H remained stable. INR has come down to 3.0. Patient will need psychosocial assessment by case management, social work, and PT. 04/05: INR is down to 1.9. Continue to hold anticoagulation. The patient's creatinine is slowly coming down and is 2.0. Continue LR 100 cc an hour. His H&H remained stable and his diet will be advanced. He will likely need placement in the setting of polypharmacy, failure to thrive, and suspected cognitive impairment. Plan of Treatment: Pleural effusion and ascites in pt with known h/o colon cancer. would not tap either. Recommend follow up with heme/onc to eval for IR drain of effusions. Call with further questions. Time Spent With Patient Time: Total time spent is greater than 50% in coordination of care (as documented) at patient's floor/unit and/or counseling patient: Subsequent: Total time with patient: 25 - 34 minutes
[2022-04-05] MEDS: HYDROCODONE/APAP 7.5/325MG TABLET PO PRN ×2 (17:14→22:04)
[2022-04-06] MEDS: LACTATED RINGERS 1,000 ML IV SCH ×2 (04:14→18:26)
[2022-04-06] MEDS: 0.9 % SODIUM CHLORIDE 10 ML SYRINGE IV SCH ×3 (05:12→20:20)
[2022-04-06 06:44] LABS: Basophils # (Auto) 0.02 K/mcL (0.00-0.30); Basophils % (Auto) 0.2 % (0.0-2.0); Eosinophils # (Auto) 0 K/mcL (0.00-0.70); Eosinophils % (Auto) 0 % (0.0-7.0); Hematocrit 36.9 % (40.1-51.0); Hemoglobin 12.3 g/dL (13.7-17.5); Lymphocytes # (Auto) 0.76 K/mcL (1.50-4.80); Lymphocytes % (Auto) 8.1 % (15.5-49.0); Mean Cell Volume 90.4 fL (80.0-100.0); Mean Corpuscular HGB Conc 33.3 g/dL (31.0-36.0); Monocytes # (Auto) 0.97 K/mcL (0.10-0.90); Monocytes % (Auto) 10.3 % (1.0-12.0); Neutrophils % (Auto) 81.1 % (38.0-78.0); Platelet Count 121 K/mcL (140-440); RBC 4.08 M/mcL (4.63-6.08); Red Cell Distribution Width 18.4 % (11.5-14.5); WBC 9.4 K/mcL (4.5-11.0)
[2022-04-06 07:14] LABS: ALT/SGPT 91 U/L (<40); AST/SGOT 160 U/L (<40); Albumin 2.2 gm/dL (3.2-5.2); Albumin/Globulin Ratio 0.6 (1.0-2.3); Alkaline Phosphatase 287 U/L (39-117); Bilirubin,Total 2.8 mg/dL (0.1-1.0); Blood Urea Nitrogen 32 mg/dL (8-23); Calcium 7.6 mg/dL (8.6-10.4); Carbon Dioxide 25 mmol/L (22-30); Chloride 100 mmol/L (96-108); Globulin 3.7 gm/dL (2.2-3.7); Glomerular Filtration Rate 34; Glucose 140 mg/dL (70-105)
[2022-04-06] MEDS: POTASSIUM CHLORIDE 20 MEQ TABLET PO SCH (08:31)
[2022-04-06] MEDS: PANTOPRAZOLE 40 MG VIAL IV SCH (08:37)
[2022-04-06] MEDS ORDERED: ONDANSETRON 4 MG/2 ML VIAL IV PRN (14:51)
[2022-04-06] MEDS ORDERED: DIPHENOXYLATE HCL/ATROPINE 1 TABLET PO PRN (15:05)
[2022-04-06] MEDS ORDERED: HYDROcodone/APAP (PP) 7.5/325MG TABLET (#4) PO PRN (15:05)
--- NOTE | 2022-04-06 15:05 | Internal Med Progress Note ---
SUBJECTIVE Subjective Patient information: Note initiated : 04/06/22 at 3:04 pm Service Date, if different from initiated Date: [] Patient: Dakota Mejia 82 y/o M admitted on 04/03/22 for altered. Chief Complaint: [] Principal diagnosis: GIB, supratherapeutic INR Interval history: 04/06: There was no major overnight events. H&H stable. Kidney functions continue to improve. Patient is currently comfortable. He denies any shortness of breath. He is commenting of mild abdominal distention's. He has good appetite and tolerates oral feeding with thickened liquids. Saline lock the patient. Add potassium chloride oral replacement for mild hypokalemia. Will restart majority of his home med minus Coumadin. Pending SNF placement. Constitutional Vitals: Vital Signs Temp Pulse Resp BP Pulse Ox O2 Del Method O2 Flow Rate 37.0 C 86 20 129/84 93 1 04/06/22 12:00 04/06/22 12:00 04/06/22 12:00 04/06/22 12:00 04/06/22 12:00 04/06/22 12:00 04/06/22 04:00 Period Temp Pulse Resp BP Sys/Yo Pulse Ox O2 Del Method O2 Flow Rate Last 24 Hr 36.4 C-37.0 C 66-93 16-24 109-158/55-84 87-99 Nasal Cannula- Room Air 0-1 Intake and Output 04/06/22 04/06/22 04/06/22 03:59 11:59 19:59 Intake Total 120 983 Output Total 450 Balance -330 983 Weight 95.799 kg Intake & Output: Intake & Output 04/06/22 04/06/22 04/06/22 03:59 11:59 19:59 Intake Total 120 983 Output Total 450 Balance -330 983 Weight 95.799 kg Intake: IV 983 Lactated Ringers 1,000 ml @ 100 983 mls/hr IV .Q10H LOIDA Rx#: [id number] Oral 120 Output: Void Amount 450 Other: Meal Lunch Percent of Meal Consumed 100% Feeding Ability Assist with Tray Set Up Urine Appearance Clear Clear Urine Color Dark Tata Dark Yellow Stool Size Large Small Stool Color Brown Brown Black Stool Consistency Soft Soft # Voids 1 # Bowel Movements 0 1 Head Head exam: Present atraumatic and normal inspection Eye Eye exam: Present normal appearance ENT ENT exam: Present mucous membranes moist, normal exam and normal external ear exam Neck Neck exam: Present normal inspection Respiratory Respiratory exam: Present decreased breath sounds Cardiovascular Cardiovascular exam: Present irregular rhythm GI/Abdominal GI/Abdominal exam: Present distended Back Exam Back exam: Present normal inspection Neurological Exam Neurological exam: Present alert and oriented X3 Skin Skin exam: Present intact and warm OBJ DATA Labs CBC & Chem 7: 04/06/22 05:25 04/06/22 05:24 Labs: Abnormal Lab Results 04/06/22 04/06/22 04/05/22 05:25 05:24 05:58 RBC 4.08 L 3.83 L Hgb 12.3 L 11.5 L Hct 36.9 L 34.7 L POC Hct RDW 18.4 H 18.0 H Plt Count 121 L 101 L MPV 12.6 H Neut % (Auto) 81.1 H Lymph % (Auto) 8.1 L 10.7 L [place] % (Auto) Lymph # (Auto) 0.76 L 0.86 L [place] # (Auto) 0.97 H 0.92 H PT INR APTT Plt Func Collagen/Epi POC Potassium Potassium Anion Gap POC BUN BUN 32 H Creatinine 1.8 H POC Creatinine Glucose 140 H POC Glucose Calcium 7.6 L POC WB Ioniz Calcium Iron TIBC Unsat Iron Binding Total Bilirubin 2.8 H Direct Bilirubin AST 160 H ALT 91 H Alkaline Phosphatase 287 H Total Protein Albumin 2.2 L Albumin/Globulin Ratio 0.6 L Lipase 04/05/22 04/04/22 04/04/22 05:57 13:30 13:30 RBC Hgb Hct POC Hct RDW Plt Count 111 L MPV Neut % (Auto) Lymph % (Auto) [place] % (Auto) Lymph # (Auto) [place] # (Auto) PT 22.1 H INR 1.9 H APTT 45.4 H Plt Func Collagen/Epi 77 L POC Potassium Potassium 2.7 L* Anion Gap POC BUN BUN 37 H Creatinine 2.0 H POC Creatinine Glucose POC Glucose Calcium 7.4 L POC WB Ioniz Calcium Iron TIBC Unsat Iron Binding Total Bilirubin 2.5 H Direct Bilirubin AST 176 H ALT 85 H Alkaline Phosphatase 256 H Total Protein 5.4 L Albumin 2.1 L Albumin/Globulin Ratio 0.6 L Lipase 04/04/22 04/04/2223 08:04 08:03 05:17 RBC 3.76 L Hgb 11.2 L Hct 34.0 L POC Hct RDW 17.4 H Plt Count 103 L MPV 12.9 H Neut % (Auto) Lymph % (Auto) 12.7 L [place] % (Auto) 12.3 H Lymph # (Auto) 0.90 L [place] # (Auto) PT INR APTT Plt Func Collagen/Epi POC Potassium Potassium 2.6 L* Anion Gap POC BUN BUN 36 H Creatinine 2.2 H POC Creatinine Glucose POC Glucose Calcium 7.3 L POC WB Ioniz Calcium Iron 53 L TIBC 163 L Unsat Iron Binding 110 L Total Bilirubin 2.3 H Direct Bilirubin AST 196 H ALT 87 H Alkaline Phosphatase 260 H Total Protein 5.4 L Albumin 2.2 L Albumin/Globulin Ratio 0.7 L Lipase 04/04/22 04/03/22 04/03/22 01:57 22:18 20:45 RBC Hgb 10.3 L 10.3 L Hct 30.4 L 30.9 L POC Hct RDW Plt Count MPV Neut % (Auto) Lymph % (Auto) [place] % (Auto) Lymph # (Auto) [place] # (Auto) PT INR APTT Plt Func Collagen/Epi POC Potassium Potassium 2.6 L* Anion Gap 6.0 L POC BUN BUN 37 H Creatinine 2.1 H POC Creatinine Glucose POC Glucose Calcium 7.2 L POC WB Ioniz Calcium Iron TIBC Unsat Iron Binding Total Bilirubin Direct Bilirubin AST ALT Alkaline Phosphatase Total Protein Albumin Albumin/Globulin Ratio Lipase 04/03/22 04/03/22 04/03/22 20:45 17:05 17:00 RBC 3.56 L Hgb 10.9 L Hct 32.3 L POC Hct 36.0 L RDW 17.4 H Plt Count 132 L MPV Neut % (Auto) Lymph % (Auto) 13.6 L [place] % (Auto) 17.7 H Lymph # (Auto) 1.27 L [place] # (Auto) 1.65 H PT 32.0 H INR 3.0 H APTT Plt Func Collagen/Epi POC Potassium 2.5 L* Potassium Anion Gap POC BUN 36 H BUN Creatinine POC Creatinine 2.4 H Glucose POC Glucose 106 H Calcium POC WB Ioniz Calcium 0.96 L Iron TIBC Unsat Iron Binding Total Bilirubin Direct Bilirubin AST ALT Alkaline Phosphatase Total Protein Albumin Albumin/Globulin Ratio Lipase 04/03/22 04/03/22 13:38 13:38 RBC Hgb Hct POC Hct RDW Plt Count MPV Neut % (Auto) Lymph % (Auto) [place] % (Auto) Lymph # (Auto) [place] # (Auto) PT 111.8 H INR 14.5 H* APTT 84.7 H Plt Func Collagen/Epi POC Potassium Potassium Anion Gap POC BUN BUN Creatinine POC Creatinine Glucose POC Glucose Calcium POC WB Ioniz Calcium Iron TIBC Unsat Iron Binding Total Bilirubin 2.4 H Direct Bilirubin 1.1 H AST 234 H ALT 100 H Alkaline Phosphatase 319 H Total Protein Albumin 2.5 L Albumin/Globulin Ratio Lipase 92 H Meds: Medications Acetaminophen (Acetaminophen 325 Mg Tablet) 650 mg PO Q4-6HP PRN; Protocol PRN Reason: Per Pain Protocol/Fever > 101 Hydrocodone Bitart/Acetaminophen (Hydrocodone/Apap 7.5/325mg Tablet) 1 - 2 tab PO Q4HP PRN; Protocol PRN Reason: Per Pain Protocol Last Admin: 04/05/22 22:04 Dose: 1 tab Ondansetron HCl (Ondansetron 4 Mg/2 Ml Vial) 4 mg IV Q4-6HP PRN PRN Reason: Nausea And Vomiting Pantoprazole Sodium (Pantoprazole 40 Mg Tablet) 40 mg PO HS LOIDA Sodium Chloride (0.9 % Sodium Chloride 10 Ml Syringe) 10 ml IV Q8 LOIDA Last Admin: 04/06/22 05:12 Dose: Not Given A/P Assessment and plan (1) MCI (mild cognitive impairment): Status: Acute (2) ANIYA (acute kidney injury): Status: Acute (3) Acute hypokalemia: Status: Acute (4) Acute GI bleeding: Status: Acute (5) Elevated INR: Status: Acute (6) Bilateral pleural effusion: Status: Acute (7) Ascites: Status: Acute (8) Personal history of colon cancer: Status: Acute (9) Chronic atrial fibrillation: Status: Chronic (10) GERD (gastroesophageal reflux disease): Status: Acute Qualifiers: Esophagitis presence: without esophagitis Qualified Code(s): K21.9 - Gastro-esophageal reflux disease without esophagitis Narrative A/P Narrative: Assessment and Plans: 1. Pleural effusion/ascites in the context of colon cancer: Saline lock, resume oral Lasix Last INR 1.9. Consider thoracentesis/paracentesis as needed for symptoms controlled if symptoms continue to worsen Recommend follow up with heme/onc to eval for IR drain of effusions. Pending SNF placement 2. GI bleeding: H/H stable, stools brown no signs of continued GI bleeding Continue to hold Coumadin. Consider switching to DOAC at time of hospital discharge Prilosec/Famotidine cbc w/ auto diff in the morning to trend H/H 3. Atrial fibrillation: Continue to hold Coumadin. Consider switching to DOAC at time of hospital discharge Amiodarone Metoprolol Succinate 4. Mild hypokalemia: Potassium chloride oral replacement CMP in the morning to trend serum potassium level Also check serum Mg level and replace if needed 5. Suspected Mild cognitive impairment: Pending SNF placement 6. Acute kidney injury: Kidney functions back to baseline Saline lock, resume oral Lasix CMP in the morning to trend kidney functions GI ppx: Prilosec/Famotidine DVT ppx: SCDs Code status: DNR Prognosis: stable Disposition: inpatient med surg; pending SNF placement Plan of Treatment: Pleural effusion and ascites in pt with known h/o colon cancer. would not tap either. Recommend follow up with heme/onc to eval for IR drain of effusions. Call with further questions. Time Spent With Patient Time: Total time spent is greater than 50% in coordination of care (as documented) at patient's floor/unit and/or counseling patient: Subsequent: Total time with patient: 35 - 49 minutes
[2022-04-06] MEDS ORDERED: ALBUTEROL SULFATE 60 PUFF INHALER INH PRN (15:15)
[2022-04-06] MEDS: LORazepam 1 MG TABLET PO PRN ×2 (16:26→20:25)
[2022-04-06] MEDS ORDERED: POTASSIUM CHLORIDE 20 MEQ TABLET PO SCH (17:30)
[2022-04-06] MEDS: HYDROCODONE/APAP 7.5/325MG TABLET PO PRN (19:09)
[2022-04-06] MEDS: IPRATROPIUM/ALBUTEROL 3 ML AMPUL.NEB NEB PRN (19:09)
[2022-04-06] MEDS: MONTELUKAST 10 MG TABLET PO SCH (20:17)
[2022-04-06] MEDS: AMIODARONE HCL 200 MG TABLET PO SCH (20:17)
[2022-04-06] MEDS: TAMSULOSIN 0.4 MG CAPSULE PO SCH (20:19)
[2022-04-06] MEDS: FAMOTIDINE 20 MG TABLET PO SCH (20:20)
[2022-04-06] MEDS ORDERED: PANTOPRAZOLE 40 MG TABLET PO SCH (21:00)
[2022-04-07] MEDS: 0.9 % SODIUM CHLORIDE 10 ML SYRINGE IV SCH ×3 (05:39→21:14)
[2022-04-07 07:09] LABS: Basophils # (Auto) 0.02 K/mcL (0.00-0.30); Basophils % (Auto) 0.3 % (0.0-2.0); Eosinophils # (Auto) 0.02 K/mcL (0.00-0.70); Eosinophils % (Auto) 0.3 % (0.0-7.0); Hematocrit 36.3 % (40.1-51.0); Hemoglobin 12.1 g/dL (13.7-17.5); Lymphocytes # (Auto) 0.87 K/mcL (1.50-4.80); Lymphocytes % (Auto) 12.6 % (15.5-49.0); Mean Cell Volume 92.4 fL (80.0-100.0); Mean Corpuscular HGB Conc 33.3 g/dL (31.0-36.0); Mean Platelet Volume 12.8 fL (8.8-12.5); Monocytes # (Auto) 0.83 K/mcL (0.10-0.90); Neutrophils % (Auto) 74.7 % (38.0-78.0); Platelet Count 83 K/mcL (140-440); RBC 3.93 M/mcL (4.63-6.08); WBC 6.9 K/mcL (4.5-11.0)
[2022-04-07 07:17] LABS: ALT/SGPT 83 U/L (<40); AST/SGOT 142 U/L (<40); Albumin/Globulin Ratio 0.6 (1.0-2.3); Alkaline Phosphatase 260 U/L (39-117); Bilirubin,Total 2.6 mg/dL (0.1-1.0); Blood Urea Nitrogen 26 mg/dL (8-23); Calcium 7.4 mg/dL (8.6-10.4); Carbon Dioxide 24 mmol/L (22-30); Chloride 105 mmol/L (96-108); Globulin 3.3 gm/dL (2.2-3.7); Glomerular Filtration Rate 34; Glucose 89 mg/dL (70-105)
[2022-04-07] MEDS ORDERED: CYANOCOBALAMIN 1000 MCG PO SCH (09:00)
[2022-04-07] MEDS ORDERED: [UNRECOGNIZED DRUG - OTHER] PO SCH (09:00)
[2022-04-07] MEDS: POTASSIUM CHLORIDE 10 MEQ TABLET PO SCH (09:07)
[2022-04-07] MEDS: OMEPRAZOLE 20 MG CAPSULE PO SCH (09:07)
[2022-04-07] MEDS: FUROSEMIDE 20 MG TABLET PO SCH (09:07)
[2022-04-07] MEDS: FLUTICASONE PROPIONATE SPRAY.NAS NS SCH (09:11)
[2022-04-07] MEDS: AMIODARONE HCL 200 MG TABLET PO SCH ×2 (09:12→19:50)
[2022-04-07] MEDS: METOPROLOL SUCCINATE 50 MG TAB.XL.24H PO SCH (09:12)
--- NOTE | 2022-04-07 10:27 | Internal Med Progress Note ---
SUBJECTIVE Subjective Patient information: Note initiated : 04/07/22 at 10:22 am Service Date, if different from initiated Date: [] Patient: Dakota Mejia 82 y/o M admitted on 04/03/22 for altered. Chief Complaint: [] Principal diagnosis: GIB, supratherapeutic INR Interval history: 04/06: There was no major overnight events. H&H stable. Kidney functions continue to improve. Patient is currently comfortable. He denies any shortness of breath. He is commenting of mild abdominal distention's. He has good appetite and tolerates oral feeding with thickened liquids. Saline lock the patient. Add potassium chloride oral replacement for mild hypokalemia. Will restart majority of his home med minus Coumadin. Pending SNF placement. 04/07: Patient became more confused/lethargic last evening/overnight. Ammonia level 59, high-normal level. Currently on 2L/min oxygen. Patient is currently sleeping. CXR to re-evaluate degree of pleural effusion. Continue potassium chloride oral replacement. Pending SNF placement. Constitutional Vitals: Vital Signs Temp Pulse Resp BP Pulse Ox O2 Del Method O2 Flow Rate 36.9 C 84 20 106/66 92 2 04/07/22 04:00 04/07/22 04:00 04/07/22 04:00 04/07/22 04:00 04/07/22 04:00 04/07/22 04:00 04/07/22 04:00 Period Temp Pulse Resp BP Sys/Yo Pulse Ox O2 Del Method O2 Flow Rate Last 24 Hr 36.7 C-37.0 C 84-105 20-24 106-148/63-87 90-94 Nasal Cannula- Room Air 2-2 Intake and Output 04/06/22 04/07/22 04/07/22 19:59 03:59 11:59 Intake Total 1120 100 Output Total 250 50 Balance 1120 -250 50 Weight 97.636 kg Intake & Output: Intake & Output 04/06/22 04/07/22 04/07/22 19:59 03:59 11:59 Intake Total 1120 100 Output Total 250 50 Balance 1120 -250 50 Weight 97.636 kg Intake: IV 1000 Lactated Ringers 1,000 ml @ 100 1000 mls/hr IV .Q10H LOIDA Rx#: [id number] Oral 120 100 Output: Void Amount 250 50 Other: Meal Dinner Percent of Meal Consumed 25% Feeding Ability Assist with Tray Set Up Urine Appearance Clear Clear Clear Urine Color Yellow Tea Colored Red Brown Stool Size Large Large Small Stool Color Brown Brown Yellow Yellow Yellow Stool Consistency Liquid Liquid Soft # Voids 1 # of times incontinent of 1 Bowels Exam: Sleeping Head Head exam: Present atraumatic and normal inspection Eye Eye exam: Present normal appearance ENT ENT exam: Present mucous membranes moist, normal exam and normal external ear exam Additional comments: Nasal cannula in place Neck Neck exam: Present normal inspection Respiratory Respiratory exam: Present decreased breath sounds Cardiovascular Cardiovascular exam: Present irregular rhythm GI/Abdominal GI/Abdominal exam: Present diminished bowel sounds and distended Back Exam Back exam: Present normal inspection Neurological Exam Additional comments: Sleeping Skin Skin exam: Present intact and warm OBJ DATA Labs CBC & Chem 7: 04/07/22 06:05 04/07/22 06:05 Labs: Abnormal Lab Results 04/07/22 04/07/22 04/06/22 06:05 06:05 05:25 RBC 3.93 L 4.08 L Hgb 12.1 L 12.3 L Hct 36.3 L 36.9 L RDW 19.0 H 18.4 H Plt Count 83 L 121 L MPV 12.8 H Neut % (Auto) 81.1 H Lymph % (Auto) 12.6 L 8.1 L [place] % (Auto) Lymph # (Auto) 0.87 L 0.76 L [place] # (Auto) 0.97 H PT INR APTT Plt Func Collagen/Epi Potassium BUN 26 H Creatinine 1.8 H Glucose Calcium 7.4 L Total Bilirubin 2.6 H AST 142 H ALT 83 H Alkaline Phosphatase 260 H Total Protein 5.3 L Albumin 2.0 L Albumin/Globulin Ratio 0.6 L 04/06/22 04/05/22 04/05/22 05:24 05:58 05:57 RBC 3.83 L Hgb 11.5 L Hct 34.7 L RDW 18.0 H Plt Count 101 L MPV 12.6 H Neut % (Auto) Lymph % (Auto) 10.7 L [place] % (Auto) Lymph # (Auto) 0.86 L [place] # (Auto) 0.92 H PT INR APTT Plt Func Collagen/Epi Potassium 2.7 L* BUN 32 H 37 H Creatinine 1.8 H 2.0 H Glucose 140 H Calcium 7.6 L 7.4 L Total Bilirubin 2.8 H 2.5 H AST 160 H 176 H ALT 91 H 85 H Alkaline Phosphatase 287 H 256 H Total Protein 5.4 L Albumin 2.2 L 2.1 L Albumin/Globulin Ratio 0.6 L 0.6 L 04/04/22 04/04/22 04/04/22 13:30 13:30 08:04 RBC 3.76 L Hgb 11.2 L Hct 34.0 L RDW 17.4 H Plt Count 111 L 103 L MPV 12.9 H Neut % (Auto) Lymph % (Auto) 12.7 L [place] % (Auto) 12.3 H Lymph # (Auto) 0.90 L [place] # (Auto) PT 22.1 H INR 1.9 H APTT 45.4 H Plt Func Collagen/Epi 77 L Potassium BUN Creatinine Glucose Calcium Total Bilirubin AST ALT Alkaline Phosphatase Total Protein Albumin Albumin/Globulin Ratio Meds: Medications Acetaminophen (Acetaminophen 325 Mg Tablet) 650 mg PO Q4-6HP PRN; Protocol PRN Reason: Per Pain Protocol/Fever > 101 Hydrocodone Bitart/Acetaminophen (Hydrocodone/Apap 7.5/325mg Tablet) 1 - 2 tab PO Q4HP PRN; Protocol PRN Reason: Per Pain Protocol Last Admin: 04/06/22 19:09 Dose: 1 tab Albuterol Sulfate (Albuterol Sulfate 60 Puff Inhaler) 2 puff INH Q4-6HP PRN PRN Reason: Shortness Of Breath Albuterol/Ipratropium (Ipratropium/Albuterol 3 Ml Ampul.Neb) 3 ml NEB Q4HP PRN PRN Reason: Shortness Of Breath Last Admin: 04/06/22 19:09 Dose: 3 ml Amiodarone HCl (Amiodarone Hcl 200 Mg Tablet) 200 mg PO BID [facility] Last Admin: 04/07/22 09:12 Dose: Not Given Diphenoxylate HCl/Atropine (Diphenoxylate Hcl/Atropine 1 Tablet) 1 tab PO TIDP PRN PRN Reason: diarrhea Famotidine (Famotidine 20 Mg Tablet) 20 mg PO QPM [facility] Last Admin: 04/06/22 20:20 Dose: 20 mg Fluticasone Propionate (Fluticasone Propionate [place].Rishi) 1 spray NS QDAY [facility] Last Admin: 04/07/22 09:11 Dose: Not Given Furosemide (Furosemide 20 Mg Tablet) 20 mg PO QAM [facility] Last Admin: 04/07/22 09:07 Dose: 20 mg Lorazepam (Lorazepam 1 Mg Tablet) 2 mg PO TIDP PRN PRN Reason: Anxiety Last Admin: 04/06/22 20:25 Dose: 2 mg Metoprolol Succinate (Metoprolol Succinate 50 Mg Tab.Xl.24h) 100 mg PO DAILY [facility] Last Admin: 04/07/22 09:12 Dose: Not Given Montelukast Sodium (Montelukast 10 Mg Tablet) 10 mg PO HS [facility] Last Admin: 04/06/22 20:17 Dose: 10 mg Omeprazole (Omeprazole 20 Mg Capsule) 20 mg PO ACB [facility] Last Admin: 04/07/22 09:07 Dose: 20 mg Ondansetron HCl (Ondansetron 4 Mg/2 Ml Vial) 4 mg IV Q4-6HP PRN PRN Reason: Nausea And Vomiting Last Admin: 04/06/22 19:09 Dose: 4 mg Potassium Chloride (Potassium Chloride 10 Meq Tablet) 10 meq PO QDAY [facility] Last Admin: 04/07/22 09:07 Dose: 10 meq Sodium Chloride (0.9 % Sodium Chloride 10 Ml Syringe) 10 ml IV Q8 [facility] Last Admin: 04/07/22 05:39 Dose: 10 ml Tamsulosin HCl (Tamsulosin 0.4 Mg Capsule) 0.4 mg PO [facility] Last Admin: 04/06/22 20:19 Dose: 0.4 mg A/P Assessment and plan (1) MCI (mild cognitive impairment): Status: Acute (2) ANIYA (acute kidney injury): Status: Acute (3) Acute hypokalemia: Status: Acute (4) Acute GI bleeding: Status: Acute (5) Elevated INR: Status: Acute (6) Bilateral pleural effusion: Status: Acute (7) Ascites: Status: Acute (8) Personal history of colon cancer: Status: Acute (9) Chronic atrial fibrillation: Status: Chronic (10) GERD (gastroesophageal reflux disease): Status: Acute Qualifiers: Esophagitis presence: without esophagitis Qualified Code(s): K21.9 - Gastro-esophageal reflux disease without esophagitis Narrative A/P Narrative: Assessment and Plans: 1. Pleural effusion/ascites in the context of colon cancer: Saline lock, resume oral Lasix Last INR 1.9. Consider thoracentesis/paracentesis as needed for symptoms controlled if symptoms continue to worsen Recommend follow up with heme/onc to eval for IR drain of effusions. Pending SNF placement Repeat CXR on 04/07 2. GI bleeding: H/H stable, stools brown no signs of continued GI bleeding Continue to hold Coumadin. Consider switching to DOAC at time of hospital discharge Prilosec/Famotidine cbc w/ auto diff in the morning to trend H/H 3. Atrial fibrillation: Continue to hold Coumadin. Consider switching to DOAC at time of hospital discharge Amiodarone Metoprolol Succinate 4. Mild hypokalemia: Potassium chloride oral replacement CMP in the morning to trend serum potassium level Also check serum Mg level and replace if needed 5. Suspected Mild cognitive impairment: Pending SNF placement 6. Acute kidney injury: Kidney functions back to baseline Saline lock, resume oral Lasix CMP in the morning to trend kidney functions GI ppx: Prilosec/Famotidine DVT ppx: SCDs Code status: DNR Prognosis: stable Disposition: inpatient med surg; pending SNF placement Plan of Treatment: Pleural effusion and ascites in pt with known h/o colon cancer. would not tap either. Recommend follow up with heme/onc to eval for IR drain of effusions. Call with further questions. Time Spent With Patient Time: Total time spent is greater than 50% in coordination of care (as documented) at patient's floor/unit and/or counseling patient: Subsequent: Total time with patient: 35 - 49 minutes
--- NOTE | 2022-04-07 10:39 | XRay Report ---
HISTORY: Short of breath, follow-up left-sided pneumonia FINDINGS: Portable semierect x-ray was obtained. Lung volumes are small due to poor inspiration. There is a persistent ill-defined alveolar infiltrate in the lower half of the left lung. There is no lobar consolidation. No pleural effusion is seen. Right lung is relatively clear but there is crowding of the pulmonary vascular markings secondary to the poor inspiration. Heart is borderline enlarged but magnified by portable technique and poor inspiration. There is no apparent congestive heart failure. Overall there has been little change since 04/03/22. IMPRESSION: Stable left lower lobe pneumonia Interpreted and Authenticated by: Varghese Rohca 04/07/22
[2022-04-07] MEDS: AZITHROMYCIN 500 MG in DEXTROSE 5% IN WATER 250 ML IV SCH (12:14)
[2022-04-07] MEDS: cefTRIAXone 1 GM VIAL IV SCH (14:00)
[2022-04-07] MEDS: FAMOTIDINE 20 MG TABLET PO SCH (19:51)
[2022-04-07] MEDS: MONTELUKAST 10 MG TABLET PO SCH (19:51)
[2022-04-07] MEDS: TAMSULOSIN 0.4 MG CAPSULE PO SCH (19:51)
[2022-04-07] MEDS: HYDROCODONE/APAP 7.5/325MG TABLET PO PRN (19:52)
[2022-04-07] MEDS: IPRATROPIUM/ALBUTEROL 3 ML AMPUL.NEB NEB PRN (21:10)
[2022-04-08] MEDS: 0.9 % SODIUM CHLORIDE 10 ML SYRINGE IV SCH ×3 (05:01→20:55)
[2022-04-08 06:41] LABS: Basophils # (Auto) 0.01 K/mcL (0.00-0.30); Basophils % (Auto) 0.1 % (0.0-2.0); Eosinophils # (Auto) 0 K/mcL (0.00-0.70); Eosinophils % (Auto) 0 % (0.0-7.0); Hematocrit 33.2 % (40.1-51.0); Hemoglobin 10.9 g/dL (13.7-17.5); Lymphocytes # (Auto) 1.42 K/mcL (1.50-4.80); Lymphocytes % (Auto) 16.6 % (15.5-49.0); Mean Corpuscular HGB Conc 32.8 g/dL (31.0-36.0); Mean Platelet Volume 12.8 fL (8.8-12.5); Monocytes # (Auto) 1.03 K/mcL (0.10-0.90); Monocytes % (Auto) 12.1 % (1.0-12.0); Platelet Count 86 K/mcL (140-440); RBC 3.65 M/mcL (4.63-6.08); WBC 8.5 K/mcL (4.5-11.0)
[2022-04-08 06:58] LABS: ALT/SGPT 74 U/L (<40); AST/SGOT 104 U/L (<40); Albumin 2.2 gm/dL (3.2-5.2); Albumin/Globulin Ratio 0.7 (1.0-2.3); Alkaline Phosphatase 229 U/L (39-117); Blood Urea Nitrogen 30 mg/dL (8-23); Calcium 7.5 mg/dL (8.6-10.4); Carbon Dioxide 28 mmol/L (22-30); Chloride 104 mmol/L (96-108); Glomerular Filtration Rate 30; Glucose 101 mg/dL (70-105)
[2022-04-08] MEDS: POTASSIUM CHLORIDE 10 MEQ TABLET PO SCH (08:52)
[2022-04-08] MEDS: OMEPRAZOLE 20 MG CAPSULE PO SCH (08:52)
[2022-04-08] MEDS: FUROSEMIDE 20 MG TABLET PO SCH (08:52)
[2022-04-08] MEDS: FLUTICASONE PROPIONATE SPRAY.NAS NS SCH (08:53)
[2022-04-08] MEDS: cefTRIAXone 1 GM VIAL IV SCH (09:58)
[2022-04-08] MEDS: METOPROLOL SUCCINATE 50 MG TAB.XL.24H PO SCH (10:27)
[2022-04-08] MEDS: AZITHROMYCIN 500 MG in DEXTROSE 5% IN WATER 250 ML IV SCH (10:32)
--- NOTE | 2022-04-08 11:23 | Internal Med Progress Note ---
SUBJECTIVE Subjective Patient information: Note initiated : 04/08/22 at 11:22 am Service Date, if different from initiated Date: [] Patient: Dakota Mejia 82 y/o M admitted on 04/03/22 for altered. Chief Complaint: [] Principal diagnosis: GIB, supratherapeutic INR Interval history: 04/06: There was no major overnight events. H&H stable. Kidney functions continue to improve. Patient is currently comfortable. He denies any shortness of breath. He is commenting of mild abdominal distention's. He has good appetite and tolerates oral feeding with thickened liquids. Saline lock the patient. Add potassium chloride oral replacement for mild hypokalemia. Will restart majority of his home med minus Coumadin. Pending SNF placement. 04/07: Patient became more confused/lethargic last evening/overnight. Ammonia level 59, high-normal level. Currently on 2L/min oxygen. Patient is currently sleeping. CXR to re-evaluate degree of pleural effusion. Continue potassium chloride oral replacement. Pending SNF placement. 04/08: Patient is awake and alter this morning. On 3L/min. Afebrile overnight. Blood cultures no growth to date. Kidney functions worsen, serum Cr 1.8-->2.0. Continue antibiotics with Rocephin and Zithromax. Continue supplemental oxygen therapy. SLT re-evaluation for fluid consistency recs. Pending SNF placement. Constitutional Vitals: Vital Signs Temp Pulse Resp BP Pulse Ox O2 Del Method O2 Flow Rate 36.4 C 75 18 114/63 95 3 04/08/22 07:47 04/08/22 08:06 04/08/22 08:06 04/08/22 07:47 04/08/22 08:06 04/08/22 08:06 04/08/22 08:06 Period Temp Pulse Resp BP Sys/Yo Pulse Ox O2 Del Method O2 Flow Rate Last 24 Hr 35.9 C-36.7 C 75-86 18-22 98-118/50-70 86-97 Nasal Cannula- Nasal Cannula 2-3 Intake and Output 04/07/22 04/08/22 04/08/22 19:59 03:59 11:59 Intake Total 250 240 Balance 250 240 Weight 96.434 kg Intake & Output: Intake & Output 04/07/22 04/08/22 04/08/22 19:59 03:59 11:59 Intake Total 250 240 Balance 250 240 Weight 96.434 kg Intake: IV 250 Zithromax 500 mg In Dextrose 5% 250 in Water 250 ml @ 250 mls/hr IV Q24H [facility] Rx#:[id number] Oral 240 Other: Meal Dinner Breakfast Percent of Meal Consumed 100% 50% Feeding Ability Needs Supervision Assist with Tray Set Up Urine Appearance Clear Clear Urine Color Yellow Dark Yellow Dark Yellow Urine Odor Normal Stool Size Moderate Moderate Stool Color Brown Brown Stool Consistency Soft Soft # Voids 2 1 1 # Bowel Movements 1 1 # of times incontinent of 1 Bowels Exam: Sleeping Head Head exam: Present atraumatic and normal inspection Eye Eye exam: Present normal appearance ENT ENT exam: Present mucous membranes moist, normal exam and normal external ear exam Additional comments: Nasal cannula in place Neck Neck exam: Present normal inspection Respiratory Respiratory exam: Present decreased breath sounds Cardiovascular Cardiovascular exam: Present irregular rhythm GI/Abdominal GI/Abdominal exam: Present diminished bowel sounds and distended Back Exam Back exam: Present normal inspection Neurological Exam Neurological exam: Present alert and oriented X3 Skin Skin exam: Present intact and warm OBJ DATA Labs CBC & Chem 7: 04/08/22 05:20 04/08/22 05:20 Labs: Abnormal Lab Results 04/08/22 04/08/22 04/07/22 05:20 05:20 06:05 RBC 3.65 L Hgb 10.9 L Hct 33.2 L RDW 19.0 H Plt Count 86 L MPV 12.8 H Neut % (Auto) Lymph % (Auto) [place] % (Auto) 12.1 H Lymph # (Auto) 1.42 L [place] # (Auto) 1.03 H Anion Gap 4.0 L BUN 30 H 26 H Creatinine 2.0 H 1.8 H Glucose Calcium 7.5 L 7.4 L Total Bilirubin 2.0 H 2.6 H AST 104 H 142 H ALT 74 H 83 H Alkaline Phosphatase 229 H 260 H Total Protein 5.2 L 5.3 L Albumin 2.2 L 2.0 L Albumin/Globulin Ratio 0.7 L 0.6 L 04/07/22 04/06/22 04/06/22 06:05 05:25 05:24 RBC 3.93 L 4.08 L Hgb 12.1 L 12.3 L Hct 36.3 L 36.9 L RDW 19.0 H 18.4 H Plt Count 83 L 121 L MPV 12.8 H Neut % (Auto) 81.1 H Lymph % (Auto) 12.6 L 8.1 L [place] % (Auto) Lymph # (Auto) 0.87 L 0.76 L [place] # (Auto) 0.97 H Anion Gap BUN 32 H Creatinine 1.8 H Glucose 140 H Calcium 7.6 L Total Bilirubin 2.8 H AST 160 H ALT 91 H Alkaline Phosphatase 287 H Total Protein Albumin 2.2 L Albumin/Globulin Ratio 0.6 L Meds: Medications Acetaminophen (Acetaminophen 325 Mg Tablet) 650 mg PO Q4-6HP PRN; Protocol PRN Reason: Per Pain Protocol/Fever > 101 Hydrocodone Bitart/Acetaminophen (Hydrocodone/Apap 7.5/325mg Tablet) 1 - 2 tab PO Q4HP PRN; Protocol PRN Reason: Per Pain Protocol Last Admin: 04/07/22 19:52 Dose: 1 tab Albuterol Sulfate (Albuterol Sulfate 60 Puff Inhaler) 2 puff INH Q4-6HP PRN PRN Reason: Shortness Of Breath Albuterol/Ipratropium (Ipratropium/Albuterol 3 Ml Ampul.Neb) 3 ml NEB Q4HP PRN PRN Reason: Shortness Of Breath Last Admin: 04/07/22 21:10 Dose: 3 ml Amiodarone HCl (Amiodarone Hcl 200 Mg Tablet) 200 mg PO BID [facility] Last Admin: 04/07/22 19:50 Dose: Not Given Ceftriaxone Sodium (Ceftriaxone 1 Gm Vial) 1 gm IV Q24H [facility]; Protocol Last Admin: 04/08/22 09:58 Dose: 1 gm Diphenoxylate HCl/Atropine (Diphenoxylate Hcl/Atropine 1 Tablet) 1 tab PO TIDP PRN PRN Reason: diarrhea Last Admin: 04/07/22 19:51 Dose: 1 tab Famotidine (Famotidine 20 Mg Tablet) 20 mg PO QPM [facility] Last Admin: 04/07/22 19:51 Dose: 20 mg Fluticasone Propionate (Fluticasone Propionate [place].Rishi) 1 spray NS QDAY [facility] Last Admin: 04/08/22 08:53 Dose: Not Given Furosemide (Furosemide 20 Mg Tablet) 20 mg PO QAM [facility] Last Admin: 04/08/22 08:52 Dose: 20 mg Azithromycin 500 mg/ Dextrose 250 mls @ 250 mls/hr IV Q24H [facility]; Protocol Stop: 04/09/22 12:59 Last Admin: 04/08/22 10:32 Dose: 250 mls/hr Lorazepam (Lorazepam 1 Mg Tablet) 2 mg PO TIDP PRN PRN Reason: Anxiety Last Admin: 04/06/22 20:25 Dose: 2 mg Metoprolol Succinate (Metoprolol Succinate 50 Mg Tab.Xl.24h) 100 mg PO DAILY [facility] Last Admin: 04/08/22 10:27 Dose: 100 mg Montelukast Sodium (Montelukast 10 Mg Tablet) 10 mg PO HS [facility] Last Admin: 04/07/22 19:51 Dose: 10 mg Omeprazole (Omeprazole 20 Mg Capsule) 20 mg PO ACB [facility] Last Admin: 04/08/22 08:52 Dose: 20 mg Ondansetron HCl (Ondansetron 4 Mg/2 Ml Vial) 4 mg IV Q4-6HP PRN PRN Reason: Nausea And Vomiting Last Admin: 04/06/22 19:09 Dose: 4 mg Potassium Chloride (Potassium Chloride 10 Meq Tablet) 10 meq PO QDAY [facility] Last Admin: 04/08/22 08:52 Dose: 10 meq Sodium Chloride (0.9 % Sodium Chloride 10 Ml Syringe) 10 ml IV Q8 [facility] Last Admin: 04/08/22 05:01 Dose: 10 ml Tamsulosin HCl (Tamsulosin 0.4 Mg Capsule) 0.4 mg PO HS [facility] Last Admin: 04/07/22 19:51 Dose: 0.4 mg A/P Assessment and plan (1) MCI (mild cognitive impairment): Status: Acute (2) ANIYA (acute kidney injury): Status: Acute (3) Acute hypokalemia: Status: Acute (4) Acute GI bleeding: Status: Acute (5) Elevated INR: Status: Acute (6) Bilateral pleural effusion: Status: Acute (7) Ascites: Status: Acute (8) Personal history of colon cancer: Status: Acute (9) Chronic atrial fibrillation: Status: Chronic (10) GERD (gastroesophageal reflux disease): Status: Acute Qualifiers: Esophagitis presence: without esophagitis Qualified Code(s): K21.9 - Gastro-esophageal reflux disease without esophagitis (11) Left lower lobe pneumonia: Status: Acute Narrative A/P Narrative: Assessment and Plans: 1. Pleural effusion/ascites in the context of colon cancer: Saline lock, resume oral Lasix Last INR 1.9. Consider thoracentesis/paracentesis as needed for symptoms controlled if symptoms continue to worsen Recommend follow up with heme/onc to evaluate for IR drain of effusions. Pending SNF placement 2. GI bleeding: H/H stable, stools brown no signs of continued GI bleeding Continue to hold Coumadin. Consider switching to DOAC at time of hospital discharge Prilosec/Famotidine cbc w/ auto diff in the morning to trend H/H 3. Atrial fibrillation: Continue to hold Coumadin. Consider switching to DOAC at time of hospital discharge Amiodarone Metoprolol Succinate 4. Mild hypokalemia: Potassium chloride oral replacement CMP in the morning to trend serum potassium level Also check serum Mg level and replace if needed 5. Suspected Mild cognitive impairment: Pending SNF placement 6. Acute kidney injury: Kidney functions back to baseline Saline lock, resume oral Lasix CMP in the morning to trend kidney functions 7. Left lower lobe pneumonia: Blood cultures no growth to date Supplemental oxygen therapy Rocephin Zithromax cbc w/ auto diff in the morning to trend WBC SLT swallowing evaluation for fluid consistency re-evaluation GI ppx: Prilosec/Famotidine DVT ppx: SCDs Code status: DNR Prognosis: stable Disposition: inpatient med surg; pending SNF placement Plan of Treatment: Pleural effusion and ascites in pt with known h/o colon cancer. would not tap either. Recommend follow up with heme/onc to eval for IR drain of effusions. Call with further questions. Time Spent With Patient Time: Total time spent is greater than 50% in coordination of care (as documented) at patient's floor/unit and/or counseling patient: Subsequent: Total time with patient: 35 - 49 minutes
[2022-04-08] MEDS: AMIODARONE HCL 200 MG TABLET PO SCH ×2 (11:44→21:21)
[2022-04-08] MEDS: FAMOTIDINE 20 MG TABLET PO SCH (20:52)
[2022-04-08] MEDS: TAMSULOSIN 0.4 MG CAPSULE PO SCH (20:52)
[2022-04-08] MEDS: MONTELUKAST 10 MG TABLET PO SCH (20:52)
[2022-04-09] MEDS: 0.9 % SODIUM CHLORIDE 10 ML SYRINGE IV SCH (05:37)
[2022-04-09 07:20] LABS: ALT/SGPT 70 U/L (<40); AST/SGOT 115 U/L (<40); Albumin 1.9 gm/dL (3.2-5.2); Albumin/Globulin Ratio 0.6 (1.0-2.3); Alkaline Phosphatase 268 U/L (39-117); Bilirubin,Total 1.8 mg/dL (0.1-1.0); Blood Urea Nitrogen 32 mg/dL (8-23); Calcium 7.1 mg/dL (8.6-10.4); Carbon Dioxide 27 mmol/L (22-30); Chloride 104 mmol/L (96-108); Globulin 3.2 gm/dL (2.2-3.7); Glomerular Filtration Rate 32; Glucose 86 mg/dL (70-105)
[2022-04-09 07:29] LABS: Basophils # (Auto) 0.01 K/mcL (0.00-0.30); Basophils % (Auto) 0.1 % (0.0-2.0); Eosinophils # (Auto) 0.04 K/mcL (0.00-0.70); Eosinophils % (Auto) 0.5 % (0.0-7.0); Hematocrit 33.5 % (40.1-51.0); Hemoglobin 11.2 g/dL (13.7-17.5); Lymphocytes # (Auto) 0.96 K/mcL (1.50-4.80); Lymphocytes % (Auto) 12.3 % (15.5-49.0); Mean Corpuscular HGB Conc 33.4 g/dL (31.0-36.0); Mean Platelet Volume 12.6 fL (8.8-12.5); Monocytes # (Auto) 0.99 K/mcL (0.10-0.90); Monocytes % (Auto) 12.6 % (1.0-12.0); Neutrophils % (Auto) 74.2 % (38.0-78.0); Platelet Count 79 K/mcL (140-440); RBC 3.68 M/mcL (4.63-6.08); Red Cell Distribution Width 19.4 % (11.5-14.5); WBC 7.8 K/mcL (4.5-11.0)
[2022-04-09] MEDS: FUROSEMIDE 20 MG TABLET PO SCH (09:06)
[2022-04-09] MEDS: POTASSIUM CHLORIDE 10 MEQ TABLET PO SCH (09:06)
[2022-04-09] MEDS: OMEPRAZOLE 20 MG CAPSULE PO SCH (09:07)
[2022-04-09] MEDS: AZITHROMYCIN 500 MG in DEXTROSE 5% IN WATER 250 ML IV SCH (09:53)
[2022-04-09] MEDS: METOPROLOL SUCCINATE 50 MG TAB.XL.24H PO SCH (09:54)
[2022-04-09] MEDS: AMIODARONE HCL 200 MG TABLET PO SCH (09:55)
[2022-04-09] MEDS: FLUTICASONE PROPIONATE SPRAY.NAS NS SCH (09:55)
[2022-04-09] MEDS: cefTRIAXone 1 GM VIAL IV SCH (09:56)
--- NOTE | 2022-04-09 11:47 | Discharge Summary ---
Discharge Provider Provider IMPORTANT FOLLOW-UP INFORMATION FOR PCP: Patient information: Note initiated : 04/09/22 at 11:44 am Service Date, if different from initiated Date: [] Patient: Dakota Mejia 82 y/o M admitted on 04/03/22 for altered. Chief Complaint: [] Date of admission: 04/03/22 19:47 Discharge date: 04/09/22 Primary care physician: Harpreet Bloom MD Attending physician on admission: Kirsty Talley Consults: 04/03/22 Consult to Physician [CONS] Stat Comment: Consulting Provider: Kirsty Talley Reason For Exam: Physician to Consult Consult to Physician [CONS] Stat Comment: Consulting Provider: Flor Vuong Reason For Exam: Physician to Consult 04/03/22 19:54 Consult to Physician [CONS] Routine Comment: Consulting Provider: Malik Cardenas Reason For Exam: Physician to Consult Attending physician on discharge: Chi Tito Pui COURSE Hospital Course Hospital course: Mr. 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 The patient overall is hard of hearing, and is generally a poor historian. There is no family present at the bedside. He states that he lives alone. He does have a grandson in town locally. The patient is unaware that he had to have his INR checked frequently. He is been complaining of inappetence and abdominal swelling. He is also noted dark tarry stool. On arrival he was hemodynamically stable and afebrile. He was found to have an INR of 14.5. CBC revealed an H&H of 10.9/32.3 and a platelet count of 132. He was also found to have a potassium of 2.5, creatinine of 2.4, and transaminitis with an AST of 232, ALT of 100, and alkaline phosphatase of 319. The patient's albumin is 2.5. CT abdomen pelvis revealed bilateral pleural effusions and moderate ascites. Large and small intestine were normal in caliber. He was noted to have sigmoid diverticuli however there was no mass noted. The hospitalist service was asked admit the patient for suspected GI bleed in the setting of supratherapeutic INR. 04/06: There was no major overnight events. H&H stable. Kidney functions continue to improve. Patient is currently comfortable. He denies any shortness of breath. He is commenting of mild abdominal distention's. He has good appetite and tolerates oral feeding with thickened liquids. Saline lock the patient. Add potassium chloride oral replacement for mild hypokalemia. Will restart majority of his home med minus Coumadin. Pending SNF placement. 04/07: Patient became more confused/lethargic last evening/overnight. Ammonia level 59, high-normal level. Currently on 2L/min oxygen. Patient is currently sleeping. CXR to re-evaluate degree of pleural effusion. Continue potassium chloride oral replacement. Pending SNF placement. 04/08: Patient is awake and alter this morning. On 3L/min. Afebrile overnight. Blood cultures no growth to date. Kidney functions worsen, serum Cr 1.8-->2.0. Continue antibiotics with Rocephin and Zithromax. Continue supplemental oxygen therapy. SLT re-evaluation for fluid consistency recs. Pending SNF placement. 04/09: Which clinical stability. Decision made to discharged to long-term with prescriptions of additional days of oral antibiotics for coverage of pneumonia. We will start the patient's on Eliquis. Follow-up with long-term MD. All questions answered prior to patient being physically discharged. Discharge diagnosis: Pneumonia, GI bleeding, dysphagia Time Spent with Patient Time attestation: Total time spent providing and/or coordinating discharge services: Time spent: Greater than 30 minutes EXAM Constitutional Vitals: Temp Pulse Resp BP Pulse Ox O2 Del Method O2 Flow Rate 36.5 C 62 18 108/54 91 2 04/09/22 07:18 04/09/22 07:18 04/09/22 07:18 04/09/22 07:18 04/09/22 03:08 04/09/22 07:18 04/09/22 07:18 General appearance: cooperative and no acute distress Head Head exam: Present atraumatic and normocephalic Eye Eye exam: Present EOMI and PERRL ENT ENT exam: Present mucous membranes moist, normal exam and normal external ear exam Neck Neck exam: Present normal inspection; Absent lymphadenopathy, tenderness or thyromegaly Additional comments: Nasal cannula in place Respiratory Respiratory exam: Absent accessory muscle use, respiratory distress or wheezes Cardiovascular Cardiovascular exam: Present irregular rhythm; Absent JVD GI/Abdominal GI/Abdominal exam: Present soft, diminished bowel sounds and distended; Absent organomegaly or tenderness Rectal Rectal exam: Present deferred Extremities Exam Extremities exam: Present full ROM, normal capillary refill and normal inspection; Absent tenderness Neurological Exam Neurological exam: Present alert, CN II-XII intact and oriented X3; Absent motor sensory deficit Psychiatric Psychiatric exam: Present normal affect and normal mood; Absent anxious or depressed Skin Skin exam: Present dry and intact Discharge Data Data Completed and Pending Labs on day of discharge: Labs from last 24 hours 04/09/22 04/09/22 04/03/22 05:25 05:25 17:00 WBC 7.8 RBC 3.68 L Hgb 11.2 L Hct 33.5 L MCV 91.0 MCH 30.4 MCHC 33.4 RDW 19.4 H Plt Count 79 L MPV 12.6 H Immature Gran % (Auto) 0.3 Neut % (Auto) 74.2 Lymph % (Auto) 12.3 L [place] % (Auto) 12.6 H Eos % (Auto) 0.5 Baso % (Auto) 0.1 Lymph # (Auto) 0.96 L [place] # (Auto) 0.99 H Eos # (Auto) 0.04 Baso # (Auto) 0.01 Immature Gran # 0.02 Absolute Neutrophils 5.81 Sodium 137 Potassium 3.9 Chloride 104 Carbon Dioxide 27 Anion Gap 6.0 L BUN 32 H Creatinine 1.9 H GFR Calculation 32 Glucose 86 Calcium 7.1 L Magnesium 1.7 Total Bilirubin 1.8 H AST 115 H ALT 70 H Alkaline Phosphatase 268 H Total Protein 5.1 L Albumin 1.9 L Globulin 3.2 Albumin/Globulin Ratio 0.6 L Vitamin K 299 Preliminary micro results at discharge 04/07/22 11:57 Blood Culture - Preliminary Blood 04/07/22 11:50 Blood Culture - Preliminary Blood Discharge Plan Patient/Caregiver Discharge Instructions Activity: increase activity as tolerated Diet: Dysphagia Level 6 Soft & Bite-Sized Foods and Thickened Liquids Prescriptions: New amoxicillin-pot clavulanate [Augmentin] 500-125 mg tablet 1 tab PO BID Qty: 10 0RF Eliquis 5 mg tablet 5 mg PO BID Qty: 60 1RF Continued cyanocobalamin (vitamin B-12) 1,000 mcg capsule 1,000 mcg capsule 1,000 mcg PO QMONTH nitroglycerin 0.4 mg tablet, sublingual 0.4 mg SUBLINGUAL Q5-15M PRN (Reason: Chest Pain) Qty: 25 2RF albuterol sulfate 90 mcg/actuation HFA aerosol inhaler See Rx Instructions .ROUTE .COMPLEX Qty: 18 6RF Dose Instruction: INHALE 2 PUFFS BY MOUTH EVERY 4-6 HOURS NEEDED FOR SHORTNESS OF BREATH Rx Instructions: INHALE 2 PUFFS BY MOUTH EVERY 4-6 HOURS NEEDED FOR SHORTNESS OF BREATH furosemide 20 mg tablet 20 mg PO QAM Qty: 30 2RF fluticasone propionate 50 mcg/actuation spray,suspension 1 spray intranasal QDAY Rx Instructions: administer into each nostril montelukast 10 mg tablet 10 mg PO HS Qty: 30 8RF Rx Instructions: TAKE 1 TABLET BY MOUTH EVERY DAY AT BEDTIME tamsulosin 0.4 mg capsule 0.4 mg PO HS Qty: 90 4RF Rx Instructions: TAKE 1 CAPSULE BY MOUTH EVERY NIGHT AT BEDTIME omeprazole magnesium [Prilosec OTC] 20 mg tablet,delayed release (DR/EC) 20 mg PO QDAY Qty: 90 4RF diphenoxylate-atropine [Lomotil] 2.5-0.025 mg tablet 1 tab PO TID PRN (Reason: diarrhea) Qty: 90 5RF metoprolol succinate 100 mg Tablet Extended Release 24 Hr 100 mg PO QAM potassium chloride 10 mEq tablet extended release 10 meq PO QDAY Label Comments: [NO ORIGINAL SIG] lorazepam 2 mg tablet 2 mg PO TID MDD 3 PRN (Reason: Anxiety) 30 Days Qty: 20 0RF Changed hydrocodone-acetaminophen 7.5-325 mg tablet 1 - 2 tab PO Q6 PRN (Reason: Pain (Scale Score 4-6)) Qty: 20 0RF Discontinued warfarin 3 mg tablet 1.5 mg PO DAILY Qty: 30 1RF amiodarone 200 mg tablet 200 mg PO BID Qty: 60 6RF famotidine 20 mg tablet 20 mg PO QPM Rx Instructions: TAKE 1 TABLET BY MOUTH ONCE DAILY Follow Up Plan Follow up with: Harpreet Bloom MD [Primary Care Provider] - Patient Disposition: er [facility] Plan of Treatment: Pleural effusion and ascites in pt with known h/o colon cancer. would not tap either. Recommend follow up with heme/onc to eval for IR drain of effusions. Call with further questions. Rehab Potential: Good I certify that the patient requires SNF services: Yes Overall status at discharge: patient is back to baseline Discharge Orders: Discharge Order (Routine); Ordered 04/09/22 Ordered By: Isaac Bailey
--- NOTE | 2022-04-09 13:08 | XRay Report ---
CLINICAL INFORMATION: Dysphagia and possible aspiration TECHNIQUE: Two separate exams were performed. Swallowing function with thin contrast barium in conjunction with speech pathology. Total fluoroscopy time 38 seconds. After the occlusion of the swallowing function, standard esophagram was performed: Single contrast thin barium was ingested under fluoroscopic observation while spot films were obtained of the esophagus during deglutition in an oblique position, right. Total fluoroscopy time: 20 seconds FINDINGS: Tongue elevation and palate depression are normal resulting in propulsion of the barium bolus into the pharynx. The nasopharyngeus closes normally. Pharyngeal stripping, cricopharyngeal opening, and lower esophageal sphincter all are normal. A few tertiary contractions disrupt the primary peristaltic wave compatible with presbyesophagus The epiglottis and vocal cords close normally - no evidence of descending aspiration. A very mild thin-walled stricture is present in this cervical esophagus at C5 which narrows the lumen only by 20% The esophagus is, otherwise, normal in contour and caliber without evidence of esophagitis or focal lesion. No hiatal hernia or reflux could be induced. 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 This narrows the lumen less than 20%. Interpreted and Authenticated by: Keon Mustafa 04/09/22
== END 2022-04-09 15:00 | DRG 377 ==
LOC: ED 11:29 → ICU 19:47 → MEDSUR 04-05 14:24
PROVIDERS: ADMIT Student in an Organized Health Care Education/Training Program; ATTEND Internal Medicine